=== PATIENT | female | born 1935 | race Caucasian/White ===

== ENCOUNTER 2017-12-09 13:07 | Emergency (ER) | payer MEDICARE, OTHER, SELFPAY ==
[2017-12-09 13:15] VITALS: BP 156/77; PULSE 79; RESP 20; TEMP 36.6; O2SAT 98; BMI 29.2
--- NOTE | 2017-12-09 13:29 | ED.HA ---
HPI - Headache <Amira Durbin PA-C - Last Filed: 12/09/17 21:15> General Chief Complaint: Headache Stated Complaint: PAIN IN HEAD Time Seen by Provider: 12/09/17 13:29 Source: patient and old records reviewed ([facility] 11/02 dx CVA with resolving sx, neg MRI, paroxysmal AF, Aortic intramural hematoma (poss)) Mode of arrival: ambulatory Limitations: no limitations History of Present Illness HPI Narrative: This 82-year-old complains of onset of brief right-sided headaches on Tuesday. She states this is only on the right side, points to her posterior parietal area, last a 2nd and then resolved. She states that these have gradually worsened to the point it was difficult for her to sleep last night, although not as severe as that today. She states that her skin feels ???like leather???, somewhat tight on the right side of her face. She states that she does not have any pain in her neck, face, or elsewhere. She has not noted any new facial weakness, pain or difficulty with talking, chewing, or swallowing. She denies any nausea, vomiting, or vision change. She denies any new weakness or paresthesia in the extremities. She has a chronic right facial droop that she states started around . Also that this might be partly due to her facial reconstruction surgery from skin cancer. She states that she also had weakness in her right hand and wrist, and was admitted to another local hospital for a few days. She does not know what diagnosis was found aside from atrial fibrillation. She states she has seen her PCP since then and currently is not on medication for this. She has been asymptomatic and denies any chest pain, palpitations, or dyspnea. She states that she is going about her usual activities despite this paroxysmal headache, no difficulty with eating, walking, etc aside from the difficulty sleeping last night. Related Data Home Medications Medication Instructions Recorded Confirmed Lactobacillus acidophilus 1 tab PO QDAY #0 tab 02/15/16 12/09/17 cholecalciferol (vitamin D3) 2,000 unit PO DAILY #0 cap 02/15/16 12/09/17 [Vitamin D3] cyanocobalamin (vitamin B-12) 1,000 mcg PO QDAY #0 02/16/16 12/09/17 nitroglycerin 0.4 mg sublingual 0.4 mg SL Q5M PRN 11/22/17 12/09/17 tablet amlodipine 10 mg PO DAILY 12/09/17 12/09/17 furosemide 40 mg PO DAILY 12/09/17 12/09/17 levothyroxine 100 mcg PO DAILY 12/09/17 12/09/17 losartan 100 mg PO DAILY 12/09/17 12/09/17 metoprolol succinate 50 mg PO DAILY 12/09/17 12/09/17 vpvuhnls-[id number]-GJ-calcium-mins 1 tab PO DAILY 12/09/17 12/09/17 [Women's One Daily] peg 400-propylene glycol [Systane 1 drp OPHTHALMIC (EYE) PRN PRN 12/09/17 12/09/17 (propylene glycol)] potassium chloride 10 meq PO DAILY 12/09/17 12/09/17 pramipexole 0.5 mg PO BID 12/09/17 12/09/17 Previous Rx's Medication Instructions Recorded meloxicam [Mobic] 7.5 mg PO Q DAY PRN #30 tab 10/29/17 Allergies Allergy/AdvReac Type Severity Reaction Status Date / Time amitriptyline [AMITRIPTYLINE] Allergy Unknown Verified 12/09/17 13:31 gabapentin [GABAPENTIN] Allergy Unknown Verified 12/09/17 13:31 ANESTHESIA DRUG AdvReac Mild UNSURE FOR Uncoded 11/22/17 08:37 THE NAME 05/31/14 Exam <Amira Durbin PA-C - Last Filed: 12/09/17 21:15> Narrative Exam Narrative: GENERAL APPEARANCE: Patient sitting comfortably, in no distress. HEENT: No scalp TTP or exanthem, PERRL, EOMI, normal TMs and oropharynx, no sinus TTP NECK: Supple LUNGS: Clear to auscultation bilaterally. HEART: Rate and rhythm regular without murmur, normal S1 and S2, no S3 or S4. NEUROLOGIC: Alert and oriented, normal speech and coordination. She has a moderate R. facial droop. DTRs 2+ throughout UEs. Mild R. UE tremor noted MUSCULOSKELETAL: Full Csp AROM without tenderness. Full AROM UEs, strength 5/5 throughout bilaterally. DERMATOLOGIC: No exanthem EXTREMITIES: No cyanosis, moderate pitting which is symmetric bilateral lower extremities Initial Vital Signs Initial Vital Signs: Vital Signs Temperature 97.8 F 05/25/18 13:15 Pulse Rate 79 12/09/17 13:15 Respiratory Rate 20 12/09/17 13:15 Blood Pressure 156/77 H 12/09/17 13:15 Pulse Oximetry 98 12/09/17 13:15 <Courtney Kellogg MD - Last Filed: 12/10/17 15:31> Initial Vital Signs Initial Vital Signs: Vital Signs Temperature 97.8 F 12/09/17 13:15 Pulse Rate 79 12/09/17 13:15 Respiratory Rate 20 12/09/17 13:15 Blood Pressure 156/77 H 12/09/17 13:15 Pulse Oximetry 98 12/09/17 13:15 Course <Amira Durbin PA-C - Last Filed: 12/09/17 21:15> Hospital Course: Reviewed findings with Dr. Villafana. Patient feels and appears at her baseline, going about normal activities. Considered trial of Indomethacin but given patient's recent history including possible intramural thrombus, elected against this. She is agreeable with monitoring and return if new or worsening symptoms. Otherwise we have arranged f/u with PCP next week and I have forwarded outside hospital records for review as she will need follow up on recent cardiac issues as well. Orders Ordered: ED Orders 12/09/17 13:45 CT head/brain wo con Stat 12/09/17 13:59 Basic Metabolic Panel Stat C-Reactive Protein Quant Stat Complete Blood Count AUTO DIFF Stat Erythrocyte Sedimentation Rate Stat Vital Signs - 8 hr 12/09/17 13:15 12/09/17 15:20 Temperature 97.8 F Pulse Rate 79 78 Respiratory Rate 20 18 Blood Pressure 156/77 H Blood Pressure [Left Arm] 157/82 H Pulse Oximetry 98 96 <Courtney Kellogg MD - Last Filed: 12/10/17 15:31> Orders Ordered: ED Orders 12/09/17 13:45 CT head/brain wo con Stat 12/09/17 13:59 Basic Metabolic Panel Stat C-Reactive Protein Quant Stat Complete Blood Count AUTO DIFF Stat Erythrocyte Sedimentation Rate Stat Vital Signs - 8 hr 12/09/17 13:15 12/09/17 15:20 Temperature 97.8 F Pulse Rate 79 78 Respiratory Rate 20 18 Blood Pressure 156/77 H Blood Pressure [Left Arm] 157/82 H Pulse Oximetry 98 96 MDM - Headache <Amira Durbin PA-C - Last Filed: 12/09/17 21:15> Lab Data Result diagrams: 12/09/17 13:59 12/09/17 13:59 Lab Results 12/09/17 12/09/17 Range/Units 13:59 13:59 WBC 8.3 (4.5-11.0) X10^3/uL RBC 4.15 (4.0-5.2) X10^6/uL Hgb 11.8 L (12.0-16.0) g/dL Hct 34.5 L (36-46) % MCV 83.1 (80-100) fL MCH 28.5 (26-34) PG MCHC 34.3 (30-36) % RDW 15.0 H (11.6-14.8) % Plt Count 203 (150-400) X10^3/uL Neut % (Auto) 61.4 (50-75) % Lymph % (Auto) 28.8 (25-40) % [place] % (Auto) 6.7 (3-14) % Eos % (Auto) 2.5 (2-4) % Baso % (Auto) 0.6 (0-2) % Neut # (Auto) 5100 (2667-7726) /uL ESR 34 H (0-20) MM/HR Sodium 144 (137-145) mmol/L Potassium 4.0 (3.4-5.1) mmol/L Chloride 106.0 (98-107) mmol/L Carbon Dioxide 29.0 (22-32) mmol/L BUN 29.0 H (7-17) mg/dL Creatinine 1.00 (0.52-1.04) mg/dL Estimated GFR 53.1 L (>60) mL/min BUN/Creatinine Ratio 29.0 H (6-22) Glucose 100 (80-110) mg/dL Calcium 9.0 (8.4-10.2) mg/dL C-Reactive Protein 1.0 (<1.0) mg/dL Imaging Data CT scan - head: Radiologist's impression: View Report History [address] [address] [address] Scan Report Signed Patient: Lolis Strickland MR#: [id number] : 1935 Acct:[id number] Age/Sex: 82 / F Date of Service: 12/09/17 Loc: ED Accession Number: [id number] Procedure: CT head/brain wo con Ordering Provider: Amira Durbin P.A-C PROCEDURE: CT HEAD/BRAIN WO CON INDICATIONS: Atypical right sided headache. TECHNIQUE: Noncontrast 4.5 mm thick angled axial sections acquired from the foramen magnum to the vertex, with coronal and sagittal reformats. For radiation dose reduction, the following was used: automated exposure control, adjustment of mA and/or kV according to patient size. COMPARISON: None. FINDINGS: Image quality: Excellent. CSF spaces: Basal cisterns are patent. No extra-axial fluid collections. Ventricles are normal in size and shape. Brain: No midline shift. No intracranial masses or hemorrhage. Pandey-white matter interface is normal. Benign basal ganglia calcifications. Skull and face: Calvarium and visualized facial bones are intact, without suspicious lesions. Sinuses: Visualized sinuses and mastoids are clear. IMPRESSION: No CT evidence of acute intracranial pathology. Dictated by: Tim Low M.D. on 12/09/2017 at 13:12 Approved by: Tim Low M.D. on 12/09/2017 at 13:14 <Courtney Kellogg MD - Last Filed: 12/10/17 15:31> Lab Data Lab Results 12/09/17 12/09/17 Range/Units 13:59 13:59 WBC 8.3 (4.5-11.0) X10^3/uL RBC 4.15 (4.0-5.2) X10^6/uL Hgb 11.8 L (12.0-16.0) g/dL Hct 34.5 L (36-46) % MCV 83.1 (80-100) fL MCH 28.5 (26-34) PG MCHC 34.3 (30-36) % RDW 15.0 H (11.6-14.8) % Plt Count 203 (150-400) X10^3/uL Neut % (Auto) 61.4 (50-75) % Lymph % (Auto) 28.8 (25-40) % [place] % (Auto) 6.7 (3-14) % Eos % (Auto) 2.5 (2-4) % Baso % (Auto) 0.6 (0-2) % Neut # (Auto) 5100 (3709-6844) /uL ESR 34 H (0-20) MM/HR Sodium 144 (137-145) mmol/L Potassium 4.0 (3.4-5.1) mmol/L Chloride 106.0 (98-107) mmol/L Carbon Dioxide 29.0 (22-32) mmol/L BUN 29.0 H (7-17) mg/dL Creatinine 1.00 (0.52-1.04) mg/dL Estimated GFR 53.1 L (>60) mL/min BUN/Creatinine Ratio 29.0 H (6-22) Glucose 100 (80-110) mg/dL Calcium 9.0 (8.4-10.2) mg/dL C-Reactive Protein 1.0 (<1.0) mg/dL Discharge Plan Departure Patient Disposition: Home, Self-Care Clinical Impression: Idiopathic stabbing headache Discharge Date/Time: 12/09/17 15:52 Interventions: ED Discharge Assessment Last Done: 12/09/17 15:52 Instructions: DI for Headache Activity Restrictions/Additional Instructions: You should return as we talked about if you have new or acutely worsening symptoms. It is okay to try an ice pack or heating pad to see if this helps your headaches. It is okay to try tylenol again if you wish (it is also reasonable to just continue to monitor since the headache pains are so brief). The source of your pain today seems to be nerve generated and it may be that you don't feel the pain in your face due to previous surgeries, or it may just be very localized. You should follow up with Dr. Salinas on this next week (we have scheduled an appointment for you at 2:15 check in 1 week from today). I have sent her your records from [facility] that I reviewed today. It did not appear that you were in atrial fibrillation when I examined you, but you should discuss with her whether further cardiology testing or treatment are needed at your next visit since it is more than a month after your last hospital stay. Prescriptions: No Action Lactobacillus acidophilus 1 EACH capsule 1 tab PO QDAY Qty: 0 RF: 0 cholecalciferol (vitamin D3) [Vitamin D3] 2,000 UNIT capsule 2,000 unit PO DAILY Qty: 0 RF: 0 cyanocobalamin (vitamin B-12) 1,000 MCG tablet extended release 1,000 mcg PO QDAY Qty: 0 RF: 0 meloxicam [Mobic] 7.5 MG tablet 7.5 mg PO Q DAY PRNQty: 30 RF: 0 nitroglycerin 0.4 mg tablet, sublingual 0.4 mg SL Q5M PRN (Reason: Chest Pain) RF: 0 amlodipine 10 mg tablet 10 mg PO DAILY RF: 0 furosemide 20 mg tablet 40 mg PO DAILY RF: 0 potassium chloride 10 mEq capsule, extended release 10 meq PO DAILY RF: 0 pramipexole 0.5 mg tablet 0.5 mg PO BID RF: 0 levothyroxine 100 mcg tablet 100 mcg PO DAILY RF: 0 peg 400-propylene glycol [Systane (propylene glycol)] 0.4-0.3 % drops 1 drp ophthalmic (eye) PRN PRN (Reason: Dry Eyes) RF: 0 brwhfllf-hhrv-VI-calcium-mins [Women's One Daily] 18 mg iron-400 mcg-500 mg Ca Tablet 1 tab PO DAILY RF: 0 metoprolol succinate 50 mg tablet extended release 24 hr 50 mg PO DAILY RF: 0 losartan 100 mg tablet 100 mg PO DAILY RF: 0 Referrals: Nicole Salinas DO [Primary Care Provider] - <Courtney Kellogg MD - Last Filed: 12/10/17 15:31> Cosign ED Attending Cosignature Attestation: I was the attending of record and available in the ED. I attest to the documentation and agree with the assessment and plan.
--- NOTE | 2017-12-09 13:45 | DI.CT.S_ITS ---
PROCEDURE: CT HEAD/BRAIN WO CON INDICATIONS: Atypical right sided headache. TECHNIQUE: Noncontrast 4.5 mm thick angled axial sections acquired from the foramen magnum to the vertex, with coronal and sagittal reformats. For radiation dose reduction, the following was used: automated exposure control, adjustment of mA and/or kV according to patient size. COMPARISON: None. FINDINGS: Image quality: Excellent. CSF spaces: Basal cisterns are patent. No extra-axial fluid collections. Ventricles are normal in size and shape. Brain: No midline shift. No intracranial masses or hemorrhage. Pandey-white matter interface is normal. Benign basal ganglia calcifications. Skull and face: Calvarium and visualized facial bones are intact, without suspicious lesions. Sinuses: Visualized sinuses and mastoids are clear. IMPRESSION: No CT evidence of acute intracranial pathology. Dictated by: Tim Low M.D. on 12/09/2017 at 13:12 Approved by: Tim Low M.D. on 12/09/2017 at 13:14
[2017-12-09 14:14] LABS: Add Manual Diff / Slide Review NO; Basophils Percent Auto 0.6 % (0-2); Eosinophils Percent Auto 2.5 % (2-4); Hematocrit 34.5 % (36-46); Hemoglobin 11.8 g/dL (12.0-16.0); Lymphocytes Percent Auto 28.8 % (25-40); Mean Corpuscular HGB Conc 34.3 % (30-36); Mean Corpuscular Hemoglobin 28.5 PG (26-34); Mean Corpuscular Volume 83.1 fL (80-100); Monocytes Percent Auto 6.7 % (3-14); Neutrophils Absolute Auto 5100 /uL (3000-5900); Neutrophils Percent Auto 61.4 % (50-75); Platelet Count 203 X10^3/uL (150-400); Red Blood Cell Count 4.15 X10^6/uL (4.0-5.2); White Blood Cell Count 8.3 X10^3/uL (4.5-11.0)
[2017-12-09 14:28] LABS: Estimated Glomerular Filt Rate 53.1 mL/min (>60); Glucose 100 mg/dL (80-110); HEMOLYSIS 28 (0-50); Sodium 144 mmol/L (137-145)
[2017-12-09 15:03] LABS: Erythrocyte Sedimentation Rate 34 MM/HR (0-20)
[2017-12-09 15:20] VITALS: BP 157/82; PULSE 78; RESP 18; O2SAT 96
== END 2017-12-09 15:52 | disposition home or self-care (01) ==
PROVIDERS: Emergency Provider Internal Medicine; PCP Family Medicine
DX: R51 Headache (principal)
CPT/HCPCS: 36415; 70450; 80048; 85025; 85651; 86140; 99282; 99284

== ENCOUNTER → 2018-02-27 08:33 | Outpatient (CLI) | payer MEDICARE, OTHER, SELFPAY ==
[2018-02-27 10:06] LABS: Add Manual Diff / Slide Review NO; Basophils Percent Auto 0.6 % (0-2); Eosinophils Percent Auto 3.1 % (2-4); Hematocrit 35.2 % (36-46); Hemoglobin 11.9 g/dL (12.0-16.0); Lymphocytes Percent Auto 25.2 % (25-40); Mean Corpuscular HGB Conc 33.7 % (30-36); Mean Corpuscular Hemoglobin 28.5 PG (26-34); Mean Corpuscular Volume 84.7 fL (80-100); Monocytes Percent Auto 5.9 % (3-14); Neutrophils Absolute Auto 5200 /uL (3000-5900); Neutrophils Percent Auto 65.2 % (50-75); Platelet Count 226 X10^3/uL (150-400); Red Blood Cell Count 4.16 X10^6/uL (4.0-5.2); Red Cell Distribution Width 15.5 % (11.6-14.8)
[2018-02-27 11:26] LABS: Cholesterol 248 mg/dL (140-199); HDL Cholesterol 35 mg/dL (40-60)
[2018-02-27 11:34] LABS: Triglycerides 820 mg/dL (35-150)
[2018-03-01 11:40] LABS: Estimated Glomerular Filt Rate 47.6 mL/min (>60)
== END ==
PROVIDERS: PCP Family Medicine; Visit Provider Internal Medicine Cardiovascular Disease
DX: I10 Essential (primary) hypertension (principal); E78.5 Hyperlipidemia, unspecified
CPT/HCPCS: 36415; 80061; 82565; 85025

== ENCOUNTER → 2018-03-01 10:52 | Outpatient (CLI) | payer MEDICARE, OTHER, SELFPAY ==
--- NOTE | 2018-03-01 | DI.CT.S_ITS ---
PROCEDURE: CT ANGIO CHEST INDICATIONS: AORTIC MURAL TOMBUS TECHNIQUE: After the administration of intravenous contrast, 2 mm thick sections acquired from the pulmonary apices to the posterior costophrenic angles. 3-dimensional maximum intensity projection (MIP) coronal and sagittal reformats were then acquired through the thorax. For radiation dose reduction, the following was used: automated exposure control, adjustment of mA and/or kV according to patient size. COMPARISON: None. FINDINGS: Image quality: Excellent. Pulmonary arteries: Pulmonary arteries are normal in size, and demonstrate no intraluminal filling defects to suggest central pulmonary embolism. No mural thrombus is visualized within the pulmonary arteries. Lungs and pleura: Lungs are clear. No pleural effusions or pneumothorax. Central and peripheral airways are patent. Mediastinum: Heart size is normal, without pericardial effusion. No mediastinal or hilar adenopathy. Esophagus is normal in caliber, without hiatal hernia. The thoracic aorta demonstrates normal caliber. Mild atheromatous calcification is present at the aortic arch and descending thoracic aorta. No mural thrombus. No wall thickening. No periaortic fat stranding. No aortic dissection. Bones and chest wall: A 14 mm diameter intermediate density nodules present within the lower outer quadrant of the right breast (series 4, image 56). No suspicious bony lesions. Ribs and thoracic spine appear intact throughout. Thyroid gland is not visualized. No axillary or supraclavicular adenopathy. Abdomen: A the liver appears hypodense suggesting fatty infiltration. There is thinning of the bilateral renal cortices. Visualized upper abdominal solid organs appear otherwise normal in the early arterial phase of enhancement. IMPRESSION: 1. Normal caliber aorta without mural thrombus or dissection. 2. No pulmonary embolus. 3. Hepatic steatosis. 4. Intermediate density nodule within the lower outer quadrant of the right breast. Mammogram and possible ultrasound is recommended to further characterize this finding. Dictated by: Micki Wayne M.D. on 03/01/2018 at 15:13 Approved by: Micki Wayne M.D. on 03/01/2018 at 15:27
== END ==
PROVIDERS: PCP Family Medicine; Visit Provider Internal Medicine Cardiovascular Disease
DX: I23.6 Thrombosis of atrium, auricular appendage, and ventricle as current complications following acute myocardial infarction (principal)
CPT/HCPCS: 71275; Q9967

== ENCOUNTER → 2018-03-10 10:11 | Outpatient (CLI) | payer MEDICARE, OTHER, SELFPAY ==
--- NOTE | 2018-03-10 10:12 | DI.MG.S_ITS ---
BILATERAL DIGITAL DIAGNOSTIC MAMMOGRAM 3D/2D: 03/10/2018 CLINICAL: Baseline exam. Right breast Lump. No prior exams were available for comparison. The tissue of both breast demonstrates scattered fibroglandular tissue. There is a 2 cm oval mass with a circumscribed margin in the right breast upper outer aspect middle depth, near or along the 9 o'clock radian. There are vascular calcifications in the right breast. No other significant masses, calcifications, or other findings are seen in either breast. IMPRESSION: INCOMPLETE: NEEDS ADDITIONAL IMAGING EVALUATION 1) The 2 cm oval mass in the right breast is indeterminate. An ultrasound is recommended. 2) No mammographic evidence of malignancy in the left breast. This exam was interpreted at Station ID: [id number]. NOTE: For mammograms, a report in lay terms will be sent to the patient. Approximately 15% of breast malignancies will not be visualized mammographically. In the management of a palpable breast mass, a negative mammogram must not discourage biopsy of a clinically suspicious lesion. Electronically Signed By: Tommy Alejandro M.D. ecl/:03/10/2018 11:27:00 letter sent: Additional Imaging Needed ACR BI-RADS Category 0: Incomplete [id number]
--- NOTE | 2018-03-10 10:12 | DI.US.S_ITS ---
ULTRASOUND OF RIGHT BREAST: 03/10/2018 CLINICAL: Palpable right breast lump. [facility]-time and Doppler ultrasound of the right breast were performed. Pandey scale images of the real-time examination were reviewed. There is a benign 1.9 cm x 1.7 cm x 1.1 cm oval cyst in the right breast at 10 o'clock 6 cm from the nipple. This oval cyst is anechoic and demonstrates a single septation. Color flow imaging demonstrates that there is no vascularity present. This correlates with mammography and the patient's palpable abnormality. IMPRESSION: BENIGN There is no sonographic evidence of malignancy in the imaged right breast. 1.9 cm oval simple cyst in the right breast at 10 o'clock 6 cm from the nipple is benign. Recommend clinical follow-up for management of patient's symptoms. Return to annual mammogram screening schedule is recommended. This exam was interpreted at Station ID: [id number]. Electronically Signed By: Tommy Alejandro M.D. ecl/:03/10/2018 12:17:00 letter sent: Clinical Evaluation Ultrasound BI-RADS: 2 Benign
== END ==
PROVIDERS: PCP Family Medicine; Visit Provider Family Medicine
DX: R92.8 Other abnormal and inconclusive findings on diagnostic imaging of breast (principal); N60.01 Solitary cyst of right breast
CPT/HCPCS: 76642; 77066; G0279

== ENCOUNTER → 2018-04-05 09:34 | Outpatient (CLI) | payer MEDICARE, OTHER, SELFPAY ==
[2018-04-05 09:55] LABS: Add Manual Diff / Slide Review NO; Basophils Percent Auto 0.9 % (0-2); Hemoglobin 12.3 g/dL (12.0-16.0); Lymphocytes Percent Auto 31.8 % (25-40); Mean Corpuscular HGB Conc 33.3 % (30-36); Mean Corpuscular Hemoglobin 28.2 PG (26-34); Mean Corpuscular Volume 84.8 fL (80-100); Neutrophils Absolute Auto 4200 /uL (3000-5900); Neutrophils Percent Auto 56.3 % (50-75); Platelet Count 222 X10^3/uL (150-400); Red Blood Cell Count 4.36 X10^6/uL (4.0-5.2); Red Cell Distribution Width 15.6 % (11.6-14.8); White Blood Cell Count 7.4 X10^3/uL (4.5-11.0)
[2018-04-05 10:11] LABS: Blood Urea Nitrogen 26 mg/dL (7-17); Calcium 9.4 mg/dL (8.4-10.2); Carbon Dioxide 30 mmol/L (22-32); Chloride 107 mmol/L (98-107); Estimated Glomerular Filt Rate 53.1 mL/min (>60); Glucose 105 mg/dL (80-110); HEMOLYSIS < 15 (0-50); Potassium 4.4 mmol/L (3.4-5.1); Sodium 147 mmol/L (137-145)
== END ==
PROVIDERS: PCP Family Medicine; Visit Provider Family Medicine
DX: G25.81 Restless legs syndrome (principal); R60.0 Localized edema
CPT/HCPCS: 36415; 80048; 82728; 85025

== ENCOUNTER → 2018-04-13 13:43 | Outpatient (CLI) | payer MEDICARE, OTHER, SELFPAY ==
--- NOTE | 2018-04-26 09:39 | P.HOLT.S_ITS ---
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 Report Referral & Results Date Patient Seen: 04/13/18 Requesting provider: Nicole Salinas Indication: Arrhythmia Duration of monitoring (days): 7 Diary information: To diary entries from the patient associated with sinus rhythm 3 patient triggered events associated with sinus rhythm and PACs Data: Minimum heart rate 55 beats per minute at 15:49 on 04/16/2018 Maximum sinus heart rate 138 at 12:23 on 04/15/2018 Maximum overall heart rate 182 beats per minute at 22:30 on 04/19/2018 this was associated with a 5 beat run of supraventricular tachycardia 1.2% of identified beats were PACs Less than 1% of identified beats were PVCs There were 11 runs of an SVT the longest being 8.7 sec at 138 beats per minute so an atypical SVT Impression: Patient with supraventricular dysrhythmia as above potentially source of patient's symptoms Clinical correlation suggested
== END ==
PROVIDERS: PCP Family Medicine; Visit Provider Family Medicine
DX: I49.9 Cardiac arrhythmia, unspecified (principal)
CPT/HCPCS: 0296T

== ENCOUNTER 2018-10-09 10:13 | Inpatient (IN) | payer MEDICARE, OTHER, SELFPAY ==
[2018-10-09] VITALS (7 sets, daily range): BP systolic 117–147; BP diastolic 51–70; PULSE 61–77; RESP 16–18; TEMP 36.6–36.7; O2SAT 93–100; BMI 32.3
--- NOTE | 2018-10-09 11:13 | DI.RAD.S_ITS ---
PROCEDURE: XR CHEST 1V INDICATIONS: chest pain TECHNIQUE: One view of the chest was acquired. COMPARISON: [facility], , CHEST 1 VIEW, 02/15/2016, 21:13. FINDINGS: Surgical changes and devices: None. Lungs and pleura: There is mild pulmonary vascular congestion. No focal infiltrate. No pleural effusions or pneumothorax. Mediastinum: Mediastinal contours appear normal. Heart size is enlarged. Bones and chest wall: No suspicious bony lesions. Overlying soft tissues appear unremarkable. IMPRESSION: Cardiomegaly and mild congestion. No focal infiltrate. Dictated by: Chet Rao M.D. on 10/09/2018 at 12:13 Approved by: Chet Rao M.D. on 10/09/2018 at 12:14
--- NOTE | 2018-10-09 11:47 | ED.EXTPRO ---
HPI - Extremity Problem General Chief complaint: Extremity Problem,Nontraumatic Stated complaint: lower extemity swelling Time Seen by Provider: 10/09/18 11:13 Source: patient Mode of arrival: ambulatory Limitations: no limitations History of Present Illness HPI Narrative: Patient is an 82-year-old female presenting from her PCP office with increasing lower extremity edema. She states that she has had multiple people over over the past few days and has not been taking care of herself. She actually has a blister on her left leg and her legs are quite erythematous. She has had cough no real shortness of breath or heart palpitations. She may have had a fever a few days ago she is not febrile now, denies any body aches or sweats. She does have a history of paroxysmal atrial fibrillation. She is in AFib now but not RVR. MD Complaint: extremity swelling Relieving factors: nothing Exacerbating factors: nothing Related Data Home Medications Medication Instructions Recorded Confirmed nitroglycerin 0.4 mg sublingual 0.4 mg SL Q5M PRN 11/22/17 10/09/18 tablet furosemide 40 mg PO QAM 12/09/17 10/09/18 suykcnht-tubb-EG-calcium-mins 1 tab PO DAILY 12/09/17 10/09/18 [Women's One Daily] peg 400-propylene glycol [Systane 1 drp OPHTHALMIC (EYE) PRN PRN 12/09/17 10/09/18 (propylene glycol)] potassium chloride 10 meq PO DAILY 12/09/17 10/09/18 acetaminophen 500 mg tablet 500 mg PO Q6H PRN 12/16/17 10/09/18 Neuoropathy Pain Med 1 dose PO PRN PRN 10/09/18 10/09/18 PreserVision AREDS 1 cap PO BID 10/09/18 10/09/18 furosemide 60 mg PO QPM 10/09/18 10/09/18 levothyroxine 100 mcg PO DAILY 10/09/18 10/09/18 losartan 100 mg PO QPM 10/09/18 10/09/18 Previous Rx's Medication Instructions Recorded meloxicam 7.5 mg tablet 7.5 mg PO DAILY #90 tab 02/15/18 lactobacillus combination no.8 3 3,000 mmu cells PO DAILY #90 cap 03/13/18 billion cell capsule lansoprazole 30 mg capsule,delayed 30 mg PO DAILY #90 cap 03/15/18 release pramipexole 0.5 mg tablet 0.5 mg PO BID #180 tab 08/08/18 amlodipine 10 mg tablet 10 mg PO DAILY #90 tab 09/12/18 metoprolol succinate ER 50 mg 50 mg PO DAILY #90 tab 09/12/18 tablet,extended release 24 hr Disabled Parking Permit See Rx Instructions .ROUTE 09/25/18 .COMPLEX #1 each Allergies Allergy/AdvReac Type Severity Reaction Status Date / Time amitriptyline [AMITRIPTYLINE] Allergy Unknown Verified 10/09/18 10:34 gabapentin [GABAPENTIN] Allergy Unknown Verified 10/09/18 10:34 ANESTHESIA DRUG AdvReac Mild UNSURE FOR Uncoded 10/09/18 09:40 THE NAME 05/31/14 Review of Systems Constitutional Denies chills, Denies fever(s), Denies lethargy and Denies weakness Eyes Denies change in vision, Denies eye discharge, Denies irritation and Denies loss of vision Cardiovascular Denies chest pain, Denies irregular heart rhythm, Denies lightheadedness, Denies palpitations, Denies dyspnea, Denies dyspnea on exertion and Denies orthopnea Respiratory Denies cough, Denies dyspnea, Denies dyspnea on exertion and Denies wheezing Gastrointestinal Gastrointestinal: Denies abdominal pain, Denies change in bowel habits, Denies diarrhea, Denies nausea and Denies vomiting Genitourinary Denies hematuria, Denies flank pain, Denies urinary incontinence and Denies urinary urgency Integumentary/Breasts Reports erythema (lower extremties) Neurologic Denies loss of vision and Denies weakness Endocrine Denies palpitations Allergic/Immunologic Denies wheezing COUNTS INCLUDE 234 BEDS AT THE [facility] Medical History Essential hypertension (Chronic 05/22/13) Hyperlipidemia (Chronic 05/22/13) 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) Bipolar I disorder (Chronic 05/22/13) Diverticulosis of colon (Chronic 05/22/13) Gastroesophageal reflux disease (Chronic 05/22/13) Postoperative hypothyroidism (Chronic 05/22/13) Restless legs syndrome (Chronic 05/22/13) Squamous cell carcinoma of skin of face (Resolved 05/22/13) Tremor (Chronic 05/22/13) Benign familial tremor (Chronic) Facial asymmetry (Chronic) Mitral regurgitation (Chronic) Paroxysmal atrial fibrillation (Chronic) Pulmonary nodule (Chronic) Vitamin D deficiency (Chronic) Schatzki's ring (Resolved) Surgical History History of esophagogastroduodenoscopy (EGD) (~05/2006) History of thyroidectomy (~03/2005) Status post cholecystectomy (~12/2004) Status post colposcopy (~12/2008) Family History Father No problems noted. Mother No problems noted. Social History marital status: household members: spouse lives independently: Yes occupational status: other (retired) Smoking Status: Never smoker alcohol intake: never substance use type: does not use Family History Father No problems noted. Mother No problems noted. Social History marital status: household members: spouse lives independently: Yes occupational status: other (retired) Smoking Status: Never smoker alcohol intake: never substance use type: does not use Exam Initial Vital Signs Initial Vital Signs: Vital Signs Temperature 98.1 F 10/09/18 10:31 Pulse Rate 77 10/09/18 10:31 Respiratory Rate 18 10/09/18 10:31 Blood Pressure 134/70 10/09/18 10:31 Pulse Oximetry 100 10/09/18 10:31 GENERAL: Alert pleasant elderly female HEENT: Head atraumatic,EOMI, pupils reactive, CARDIOVASCULAR: Regular rate and rhythm without murmurs, rubs or gallops. RESPIRATORY: Breath sounds equal bilaterally, no wheezes rales or rhonchi. ABDOMEN: Soft, nontender. Normoactive bowel sounds all 4 quadrants. No guarding or rebound. EXTREMITIES: Normal range of motion, no clubbing. Neurovascularly intact. +3 pitting edema NEUROLOGICAL: Alert and oriented x4.Normal gait and speech. SKIN:: Erythema on the lower extremities up to mid leg very sharp demarcated line. She also has a blister on on the left leg above the erythema. Legs are weeping Course Orders Ordered: ED Orders 10/09/18 11:13 XR chest 1V Stat 10/09/18 11:20 Urine Microscopic Stat 10/09/18 11:21 EKG-12 Lead Stat 10/09/18 11:30 BNP [B Type Natriuretic Peptide] Stat Complete Blood Count AUTO DIFF Stat Comprehensive Metabolic Panel Stat Influenza A and B by PCR Rapid Stat Lipase Stat Partial Thromboplastin Time Stat Procalcitonin Stat Prothrombin Time INR Stat Troponin & CK Cardiac Panel Stat 10/09/18 15:51 EC echo doppler complete Routine Education, smoking cessation ONGOING 10/09/18 18:31 Blood Culture Stat 10/10/18 06:00 Basic Metabolic Panel Routine Acetaminophen (Tylenol) 325 mg PO Q6H PRN PRN Reason: pain Amlodipine Besylate (Norvasc) 10 mg PO DAILY [facility] Enoxaparin Sodium (Lovenox) 40 mg SUBCUT DAILY [facility] Furosemide (Lasix) 40 mg PO DAILY [facility] Furosemide (Lasix) 60 mg PO QPM [facility] Last Admin: 10/09/18 16:54 Dose: 60 mg Cefazolin Sodium/Dextrose (Ancef) 1 gm in 50 mls @ 200 mls/hr IV Q8H [facility] Last Admin: 10/09/18 18:37 Dose: 200 mls/hr Lactobacillus Acidophilus (Bacid Caplet) 1 each PO DAILY [facility] Levothyroxine Sodium (Synthroid) 100 mcg PO 0600 [facility] Losartan Potassium (Cozaar) 100 mg PO QPM [facility] Last Admin: 10/09/18 16:55 Dose: 100 mg Meloxicam (Mobic) 7.5 mg PO DAILY [facility] Metoprolol Succinate (Toprol Xl) 50 mg PO DAILY [facility] Multivitamins/Calcium (Thera M Plus) 1 tab PO DAILY [facility] Pantoprazole Sodium (Protonix) 40 mg PO 0600 [facility] Potassium Chloride (Klor-Con M10) 10 meq PO DAILY [facility] Pramipexole Dihydrochloride (Mirapex) 0.5 mg PO BID [facility] Last Admin: 10/09/18 16:55 Dose: 0.5 mg Discontinued Medications Furosemide (Lasix) 40 mg IV NOW ONE Stop: 10/09/18 11:48 Last Admin: 10/09/18 12:12 Dose: 40 mg Furosemide (Lasix) 40 mg IV NOW ONE Stop: 10/09/18 15:52 Last Admin: 10/09/18 16:50 Dose: Not Given Vital Signs - 8 hr 10/09/18 12:30 10/09/18 13:30 10/09/18 16:33 Temperature 97.8 F Pulse Rate 61 62 70 Respiratory Rate 18 16 18 Blood Pressure 142/64 H Blood Pressure [Left Arm] 117/58 L 130/60 Pulse Oximetry 96 93 95 10/09/18 16:55 Temperature Pulse Rate 70 Respiratory Rate Blood Pressure 142/64 H Blood Pressure [Left Arm] Pulse Oximetry MDM - Extremity (Nontraumatic) Lab Data Attestation: I reviewed the patient's lab results. Result diagrams: 10/09/18 11:30 10/09/18 11:30 Lab Results 10/09/18 10/09/18 10/09/18 Range/Units 11:20 11:30 11:30 WBC 9.6 (4.5-11.0) X10^3/uL RBC 4.05 (4.0-5.2) X10^6/uL Hgb 11.7 L (12.0-16.0) g/dL Hct 34.3 L (36-46) % MCV 84.8 (80-100) fL MCH 28.8 (26-34) PG MCHC 34.0 (30-36) % RDW 14.4 (11.6-14.8) % Plt Count 209 (150-400) X10^3/uL Neut % (Auto) 66.9 (50-75) % Lymph % (Auto) 20.2 L (25-40) % [facility] % (Auto) 7.2 (3-14) % Eos % (Auto) 5.1 H (2-4) % Baso % (Auto) 0.6 (0-2) % Neut # (Auto) 6400 (3015-5764) /uL Lymph # (Auto) 1900 (9795-8306) /uL [facility] # (Auto) 700 (0-900) /uL Eos # (Auto) 500 H (0-450) /uL Baso # (Auto) 100 (0-100) /uL PT 10.8 (10.1-12.7) SECONDS INR 0.9 (0.9-1.3) APTT 23 L (26.4-36.2) SECONDS Sodium (137-145) mmol/L Potassium (3.4-5.1) mmol/L Chloride (98-107) mmol/L Carbon Dioxide (22-32) mmol/L BUN (7-17) mg/dL Creatinine (0.52-1.04) mg/dL Estimated GFR (>60) mL/min BUN/Creatinine Ratio (6-22) Glucose (80-110) mg/dL Calcium (8.4-10.2) mg/dL Total Bilirubin (0.2-1.3) mg/dL AST (14-36) IU/L ALT (9-52) IU/L Alkaline Phosphatase (38-126) U/L Total Creatine Kinase (30-135) U/L CK-MB (CK-2) CK-MB (CK-2) Rel Index Troponin I (0.01-0.034) ng/mL B-Natriuretic Peptide (<100) Total Protein (6.3-8.2) g/dL Albumin (3.5-5.0) g/dL Globulin (1.7-4.1) g/dL Albumin/Globulin Ratio (1.0-2.8) Lipase (23-300) U/L Procalcitonin (<0.5) ng/mL Urine RBC 1-5/hpf (0-5/HPF) Urine WBC None seen (0-5/HPF) Amorphous Sediment 2+ Urine Bacteria None seen (None) Ur Culture Indicated? Cult not indicated Influenza A & B (PCR) (Negative) 10/09/18 10/09/18 10/09/18 Range/Units 11:30 11:30 11:30 WBC (4.5-11.0) X10^3/uL RBC (4.0-5.2) X10^6/uL Hgb (12.0-16.0) g/dL Hct (36-46) % MCV (80-100) fL MCH (26-34) PG MCHC (30-36) % RDW (11.6-14.8) % Plt Count (150-400) X10^3/uL Neut % (Auto) (50-75) % Lymph % (Auto) (25-40) % [facility] % (Auto) (3-14) % Eos % (Auto) (2-4) % Baso % (Auto) (0-2) % Neut # (Auto) (9374-7962) /uL Lymph # (Auto) (3236-6841) /uL [facility] # (Auto) (0-900) /uL Eos # (Auto) (0-450) /uL Baso # (Auto) (0-100) /uL PT (10.1-12.7) SECONDS INR (0.9-1.3) APTT (26.4-36.2) SECONDS Sodium 139 (137-145) mmol/L Potassium 3.3 L (3.4-5.1) mmol/L Chloride 103 (98-107) mmol/L Carbon Dioxide 27 (22-32) mmol/L BUN 19 H (7-17) mg/dL Creatinine 0.80 (0.52-1.04) mg/dL Estimated GFR > 60.0 (>60) mL/min BUN/Creatinine Ratio 23.8 H (6-22) Glucose 107 (80-110) mg/dL Calcium 8.0 L (8.4-10.2) mg/dL Total Bilirubin 0.5 (0.2-1.3) mg/dL AST 24 (14-36) IU/L ALT 32 (9-52) IU/L Alkaline Phosphatase 70 (38-126) U/L Total Creatine Kinase 35 (30-135) U/L CK-MB (CK-2) TNP CK-MB (CK-2) Rel Index TNP Troponin I < 0.012 (0.01-0.034) ng/mL B-Natriuretic Peptide < 100 (<100) Total Protein 6.5 (6.3-8.2) g/dL Albumin 3.8 (3.5-5.0) g/dL Globulin 2.7 (1.7-4.1) g/dL Albumin/Globulin Ratio 1.4 (1.0-2.8) Lipase 89 (23-300) U/L Procalcitonin (<0.5) ng/mL Urine RBC (0-5/HPF) Urine WBC (0-5/HPF) Amorphous Sediment Urine Bacteria (None) Ur Culture Indicated? Influenza A & B (PCR) Negative (Negative) 10/09/18 Range/Units 11:30 WBC (4.5-11.0) X10^3/uL RBC (4.0-5.2) X10^6/uL Hgb (12.0-16.0) g/dL Hct (36-46) % MCV (80-100) fL MCH (26-34) PG MCHC (30-36) % RDW (11.6-14.8) % Plt Count (150-400) X10^3/uL Neut % (Auto) (50-75) % Lymph % (Auto) (25-40) % [facility] % (Auto) (3-14) % Eos % (Auto) (2-4) % Baso % (Auto) (0-2) % Neut # (Auto) (4813-5842) /uL Lymph # (Auto) (4517-6979) /uL [facility] # (Auto) (0-900) /uL Eos # (Auto) (0-450) /uL Baso # (Auto) (0-100) /uL PT (10.1-12.7) SECONDS INR (0.9-1.3) APTT (26.4-36.2) SECONDS Sodium (137-145) mmol/L Potassium (3.4-5.1) mmol/L Chloride (98-107) mmol/L Carbon Dioxide (22-32) mmol/L BUN (7-17) mg/dL Creatinine (0.52-1.04) mg/dL Estimated GFR (>60) mL/min BUN/Creatinine Ratio (6-22) Glucose (80-110) mg/dL Calcium (8.4-10.2) mg/dL Total Bilirubin (0.2-1.3) mg/dL AST (14-36) IU/L ALT (9-52) IU/L Alkaline Phosphatase (38-126) U/L Total Creatine Kinase (30-135) U/L CK-MB (CK-2) CK-MB (CK-2) Rel Index Troponin I (0.01-0.034) ng/mL B-Natriuretic Peptide (<100) Total Protein (6.3-8.2) g/dL Albumin (3.5-5.0) g/dL Globulin (1.7-4.1) g/dL Albumin/Globulin Ratio (1.0-2.8) Lipase (23-300) U/L Procalcitonin < 0.05 (<0.5) ng/mL Urine RBC (0-5/HPF) Urine WBC (0-5/HPF) Amorphous Sediment Urine Bacteria (None) Ur Culture Indicated? Influenza A & B (PCR) (Negative) Urine Dip Bedside Urine Glucose Negative Bedside Urine Bilirubin - Negative Bedside Urine Ketone - Negative Urine Specific [place] 1.025 Bedside Urine Occult Blood +/- Bedside Urine pH 6.0 Bedside Urine Protein - Negative Bedside Urine Urobilinogen - Negative Bedside Urine Nitrite - Negative Bedside Urine Leukocytes - Negative Esterase Imaging Data Chest x-ray: Radiologist's impression: PROCEDURE: XR CHEST 1V INDICATIONS: chest pain TECHNIQUE: One view of the chest was acquired. COMPARISON: [facility], CHEST 1 VIEW, 02/15/2016, 21:13. FINDINGS: Surgical changes and devices: None. Lungs and pleura: There is mild pulmonary vascular congestion. No focal infiltrate. No pleural effusions or pneumothorax. Mediastinum: Mediastinal contours appear normal. Heart size is enlarged. Bones and chest wall: No suspicious bony lesions. Overlying soft tissues appear unremarkable. IMPRESSION: Cardiomegaly and mild congestion. No focal infiltrate. Dictated by: Chet Rao M.D. on 10/09/2018 at 12:13 ECG Data Attestation EKG: I personally reviewed and interpreted this ECG as follows: Prior ECG tracings: available for review Interpretation: Normal sinus rhythm rate [address] changes no T-wave inversion MDM Narrative Medical decision making narrative: Patient has obvious lower extremity edema with mild pulmonary edema on x-ray. She has no respiratory issues. BNP is less than 100 but does have signs and symptoms consistent with congestive heart failure. She has no leukocytosis she is afebrile negative procalcitonin at this time I think lower extremity erythema is due to edema and not infection. I have discussed case with Dr. Avitia who agrees with no antibiotics at this time she will see and evaluate patient agrees with admission and diuresis. Discharge Plan Departure Patient Disposition: Admitted As Inpatient Clinical Impression: CHF (congestive heart failure) Qualifiers: Heart failure type: other Qualified Code(s): I50.9 - Heart failure, unspecified Discharge Date/Time: 10/09/18 15:43 Interventions: ED Discharge Assessment Last Done: 10/09/18 15:40 Admit Date/Time: 10/09/18 14:58 Admit Provider: Kristin Avitia
[2018-10-09 11:55] LABS: Add Manual Diff / Slide Review NO; Basophils Absolute Auto 100 /uL (0-100); Basophils Percent Auto 0.6 % (0-2); Eosinophils Absolute Auto 500 /uL (0-450); Eosinophils Percent Auto 5.1 % (2-4); Hematocrit 34.3 % (36-46); Hemoglobin 11.7 g/dL (12.0-16.0); Lymphocytes Absolute Auto 1900 /uL (1100-4500); Lymphocytes Percent Auto 20.2 % (25-40); Mean Corpuscular Hemoglobin 28.8 PG (26-34); Mean Corpuscular Volume 84.8 fL (80-100); Monocytes Absolute Auto 700 /uL (0-900); Monocytes Percent Auto 7.2 % (3-14); Neutrophils Absolute Auto 6400 /uL (1500-7000); Neutrophils Percent Auto 66.9 % (50-75); Platelet Count 209 X10^3/uL (150-400); Red Blood Cell Count 4.05 X10^6/uL (4.0-5.2); Red Cell Distribution Width 14.4 % (11.6-14.8); White Blood Cell Count 9.6 X10^3/uL (4.5-11.0)
[2018-10-09 12:00] LABS: INR 0.9 (0.9-1.3); Prothrombin Time 10.8 SECONDS (10.1-12.7)
[2018-10-09 12:02] LABS: PTT Partial Thromboplastin Tim 23 SECONDS (26.4-36.2)
[2018-10-09 12:04] LABS: Alanine Aminotransferase 32 IU/L (9-52); Albumin 3.8 g/dL (3.5-5.0); Albumin Globulin Ratio 1.4 (1.0-2.8); Alkaline Phosphatase 70 U/L (38-126); Aspartate Aminotransferase 24 IU/L (14-36); BUN Creatinine Ratio 23.8 (6-22); Bilirubin Total 0.5 mg/dL (0.2-1.3); Blood Urea Nitrogen 19 mg/dL (7-17); Carbon Dioxide 27 mmol/L (22-32); Chloride 103 mmol/L (98-107); Creatine Kinase 35 U/L (30-135); Estimated Glomerular Filt Rate > 60.0 mL/min (>60); Globulin 2.7 g/dL (1.7-4.1); Glucose 107 mg/dL (80-110); HEMOLYSIS 20 (0-50); Lipase 89 U/L (23-300); Potassium 3.3 mmol/L (3.4-5.1); Sodium 139 mmol/L (137-145); Total Protein 6.5 g/dL (6.3-8.2)
[2018-10-09 12:07] LABS: Bacteria Urine None Seen; WBC Urine None Seen (0-5/HPF)
[2018-10-09 12:10] LABS: B Type Natriuretic Peptide < 100 (<100)
[2018-10-09] MEDS: FUROSEMIDE 40 MG/4 ML VIAL IV (12:12)
[2018-10-09 12:15] LABS: Troponin I < 0.012 ng/mL (0.01-0.034)
[2018-10-09 12:20] LABS: Influenza A and B by PCR Rapid Negative (Negative)
[2018-10-09 12:40] LABS: Amorphous Sediment Urine 2+; Culture Indicated Urine Cult Not Indicated; RBC Urine 1-5/HPF (0-5/HPF)
[2018-10-09 13:05] LABS: Procalcitonin < 0.05 ng/mL (<0.5)
--- NOTE | 2018-10-09 15:51 | DI.ECHO.S_ITS ---
[place] +---------+ [facility] +---------+ : : [address] : : : : [id number] : : : : Phone: [phone] Echocardiogram Report + + :Name: LUCY MISHRA Study Date: 10/10/2018 Height: 64 in : :[facility] Exam Location: [facility] Weight: 188 lb : : Gender: Female BSA: 1.9 m2 : :: 1935 Age: 82 yrs BP: 114/58 mmHg: :Reason For Study: LEG EDEMA : : Performed By: Benny Londono : :Referring: TEJAS CAMARENA : + + Interpretation Summary The left ventricle is normal in size. Left ventricular systolic function is normal without focal wall motion abnormalities. The ejection fraction is estimated to be 60-65%. Diastolic parameters suggest a relaxation abnormality of the left ventricle, consistent with probable normal filling pressures. The right ventricle is normal in size and function. The right ventricular systolic pressure is estimated to be at least 29 mmHg based on an estimated right atrial pressure of 8 mm Hg. Both atria are normal in size. There is mild aortic regurgitation. There is no other significant valvular heart disease. The IVC is dilated (diameter is greater than 2.1 cm) yet it collapses greater than 50% with a sniff. This suggests a right atrial pressure of 8 mm Hg. Procedure: A two-dimensional transthoracic echocardiogram with color flow and Doppler was performed. The study quality was technically difficult. There is no prior echocardiogram noted for this patient. A contrast injection of Definity was performed to improve assessment of LV function. The patient was in normal sinus rhythm during the exam. Left Ventricle: The left ventricle is normal in size. There is normal left ventricular wall thickness. Left ventricular systolic function is normal without focal wall motion abnormalities. The ejection fraction is estimated to be 60-65%. Diastolic parameters suggest a relaxation abnormality of the left ventricle, consistent with probable normal filling pressures. Right Ventricle: The right ventricle is normal in size and function. Atria: Both atria are normal in size. The interatrial septum is intact with no evidence for an atrial septal defect. Mitral Valve: The mitral valve is normal in structure and function. There is trace mitral regurgitation. Aortic Valve: The aortic valve is trileaflet. The aortic valve opens well. There is mild aortic regurgitation. Tricuspid Valve: The tricuspid valve is normal in structure and function. There is mild tricuspid regurgitation. The right ventricular systolic pressure is estimated to be at least 29 mmHg based on an estimated right atrial pressure of 8 mm Hg. Pulmonic Valve: The pulmonic valve is normal in structure and function. There is trace pulmonic regurgitation. There is no other significant valvular heart disease. Great Vessels: The aortic root is normal size. The dimensions of the ascending aorta are normal. The pulmonary artery is normal size. The IVC is dilated (diameter is greater than 2.1 cm) yet it collapses greater than 50% with a sniff. This suggests a right atrial pressure of 8 mm Hg. Pericardium/ Pleura There is no pericardial effusion. There is no pleural effusion. MMode/2D Measurements & Calculations LVIDd: 4.6 cm LVOT diam: 2.0 cm LVIDs: 2.7 cm Ao root diam: 2.7 cm FS: 41.7 % Aortic Jxn: 2.3 cm EPSS: 0.66 cm asc Aorta Diam: 3.0 cm IVSd: 1.0 cm LVPWd: 1.00 cm LV haley. diameter/BSA (cm/m^2): 2.4 LV sys. diameter/BSA (cm/m^2): 1.4 LA dimension: 3.3 cm RA long axis: 4.6 cm LA A2 area: 18.0 cm2 RA area: 16.1 cm2 LA A4 area: 17.4 cm2 RA vol: 47.3 ml LA length (vol): 4.8 cm RA : 24.8 ml/m2 LA vol: 55.5 ml IVC diam: 2.6 cm LA vol index: 29.1 ml/m2 Doppler Measurements & Calculations Ao V2 max: 128.4 cm/sec LVOT Max Luciano: 84.7 cm/sec Ao V2 mean: 89.5 cm/sec LV V1 max P.9 mmHg Ao max P.6 mmHg LV V1 VTI: 22.0 cm Ao mean P.5 mmHg JAM(I,D): 2.6 cm2 Ao V2 VTI: 26.3 cm JAM(V,D): 2.1 cm2 sev ratio: 0.84 JAM indexed to BSA (cm^2/m^2): 1.4 AI P1/2t: 662.3 msec AI dec slope: 144.2 cm/sec2 MV E max luciano: 89.0 cm/sec TR max luciano: 230.4 cm/sec MV A max luciano: 98.7 cm/sec TR max P.2 mmHg MV E/A: 0.90 PA V2 max: 89.5 cm/sec Med Peak E' Luciano: 4.6 cm/sec PA V2 mean: 65.3 cm/sec E/E' med: 19.2 PA mean P.9 mmHg Lat Peak E' Luciano: 3.8 cm/sec PA pr(Accel): 14.1 mmHg E/E' lat: 23.3 PA Accel Time: 0.14 sec E/e' average: 21.2 MV dec time: 0.23 sec SV(LVOT): 69.5 ml Reading Physician:12:56 PM
[2018-10-09] MEDS: FUROSEMIDE 20 MG TABLET 60 MG PO (16:54)
[2018-10-09] MEDS: PRAMIPEXOLE 0.25 MG TABLET 0.5 MG PO (16:55)
[2018-10-09] MEDS: LOSARTAN 50 MG TABLET 100 MG PO (16:55)
--- NOTE | 2018-10-09 17:52 | P.HP_ITS ---
History of Present Illness Date Patient Seen: 10/09/18 Time Patient Seen: 16:45 Chief complaint: lower extemity swelling Narrative: Pt is a 82yo woman with hypertension, hyperlipidemia, bipolar disorder, GERD, CVA, paroxysmal atrial fibrillation, and hypothyroidism who presented with acutely worsening LE edema. She states that for the past 4-5 days her lower extremity edema has been acutely worsening. Four days ago, she noticec that her legs looked very red and felt ?on fire.? Additionally, 4 days ago, the patient felt feverish. Her niece checked her temperature, and it was > 100F, but she cannot recall the exact number. Since then, she has intermittently had chills. The pt has been taking her home medications as appropriate, but states that she has been very busy and not elevating her legs or wearing compression socks like she normally does. She has also not been careful about her diet, including salt intake. She has also been on her feet a lot more then usual. Over the past 3 days, it has become very painful for her to stand on her feet. She did also develop a large blister on her left leg in the past 2 days. The pt does endorse that she has been feeling increasingly SOB. She has been sleeping at an incline due to feeling like she is suffocating when sleeping flat. The pt denies any recent chest pain or cough. Patient History Family & Social History Social History: household members spouse Prior Living Arrangements House lives independently Yes Safety & Behavioral: Feels Safe in Current Yes Environment Been Physically Hurt or No Threatened By a Person Suicidal Ideation Description None Suicide Plan Description No Plan Tobacco & Substance use: Smoking Status Never smoker alcohol intake never alcohol intake frequency a few times a month Substance Use Type does not use Meds Home Medications Medication Instructions Recorded Confirmed Type nitroglycerin 0.4 mg sublingual 0.4 mg SL Q5M PRN 11/22/17 10/09/18 History tablet furosemide 40 mg PO QAM 12/09/17 10/09/18 History wcjnuhar-yudh-QX-calcium-mins 1 tab PO DAILY 12/09/17 10/09/18 History [Women's One Daily] peg 400-propylene glycol [Systane 1 drp OPHTHALMIC (EYE) PRN PRN 12/09/17 10/09/18 History (propylene glycol)] potassium chloride 10 meq PO DAILY 12/09/17 10/09/18 History acetaminophen 500 mg tablet 500 mg PO Q6H PRN 12/16/17 10/09/18 History meloxicam 7.5 mg tablet 7.5 mg PO DAILY #90 tab 02/15/18 10/09/18 Rx lactobacillus combination no.8 3 3,000 mmu cells PO DAILY #90 cap 03/13/18 10/09/18 Rx billion cell capsule lansoprazole 30 mg capsule,delayed 30 mg PO DAILY #90 cap 03/15/18 10/09/18 Rx release pramipexole 0.5 mg tablet 0.5 mg PO BID #180 tab 08/08/18 10/09/18 Rx amlodipine 10 mg tablet 10 mg PO DAILY #90 tab 09/12/18 10/09/18 Rx metoprolol succinate ER 50 mg 50 mg PO DAILY #90 tab 09/12/18 10/09/18 Rx tablet,extended release 24 hr Disabled Parking Permit See Rx Instructions .ROUTE 09/25/18 10/09/18 Rx .COMPLEX #1 each Neuoropathy Pain Med 1 dose PO PRN PRN 10/09/18 10/09/18 History PreserVision AREDS 1 cap PO BID 10/09/18 10/09/18 History furosemide 60 mg PO QPM 10/09/18 10/09/18 History levothyroxine 100 mcg PO DAILY 10/09/18 10/09/18 History losartan 100 mg PO QPM 10/09/18 10/09/18 History Allergies Allergy/AdvReac Type Severity Reaction Status Date / Time amitriptyline [AMITRIPTYLINE] Allergy Unknown Verified 10/09/18 10:34 gabapentin [GABAPENTIN] Allergy Unknown Verified 10/09/18 10:34 ANESTHESIA DRUG AdvReac Mild UNSURE FOR Uncoded 10/09/18 09:40 THE NAME 05/31/14 Review of Systems Constitutional Constitutional: Reports chills, Denies fatigue, Reports fever(s), Denies snoring and Denies weakness Cardiovascular Cardiovascular: Denies chest pain, Denies excessive sweating, Denies fast heart rate, Reports foot swelling, Denies irregular heart rhythm, Reports leg swelling, Denies lightheadedness, Reports shortness of breath and Reports shor tness of breath when lying down Respiratory Respiratory: Denies chest congestion, Denies cough, Reports dyspnea, Denies snoring, Denies stridor and Denies wheezing Gastrointestinal Gastrointestinal: Denies abdominal pain, Denies change in bowel habits, Denies nausea and Denies vomiting Genitourinary Genitourinary: Denies urinary frequency and Denies urinary urgency Neurologic Neurologic: Denies weakness Endocrine Endocrine: Denies fatigue Allergic/Immunologic Allergic/Immunologic: Denies wheezing Exam Vital Signs (past 8 hours): - 10/09/18 10:31 10/09/18 11:20 10/09/18 12:30 Temperature 98.1 F Pulse Rate 77 68 61 Respiratory Rate 18 18 18 Blood Pressure 134/70 Blood Pressure [Left Arm] 132/51 L 117/58 L Pulse Oximetry 100 98 96 10/09/18 13:30 10/09/18 16:33 10/09/18 16:55 Temperature 97.8 F Pulse Rate 62 70 70 Respiratory Rate 16 18 Blood Pressure 142/64 H 142/64 H Blood Pressure [Left Arm] 130/60 Pulse Oximetry 93 95 Oxygen Delivery Method Room Air Narrative Exam Narrative: GEN - alert, cooperative and no distress, sitting comfortably in bed, appears well, speaking easily in complete sentences HEENT - normocephalic and atraumatic, sclera white, moist mucus membranes, throat non-erythematous NECK - FROM, no adenopathy, no JVD HEART - RRR, S1, S2 normal, no S3 or S4, no murmurs LUNGS - symmetric chest rise, no accessory muscles, mild end-expiratory crackles bilateral bases, no wheezing ABD - nondistended, normal bowel sounds, soft, nontender EXT - 2+ pitting edema bilateral LE to knee level with tight skin, significant erythema and warmth bilateral legs to knee level with distinct demarcation from erythematous to not directly below the knee, tender to palpation and very warm, approximately 2cm diameter blister present superior aspect of erythema on left leg with clear fluid present NEURO - no gross deficits Objective Imaging Chest x-ray: Radiologist's impression: PROCEDURE: XR CHEST 1V INDICATIONS: chest pain TECHNIQUE: One view of the chest was acquired. COMPARISON: [facility], CHEST 1 VIEW, 02/15/2016, 21:13. FINDINGS: Surgical changes and devices: None. Lungs and pleura: There is mild pulmonary vascular congestion. No focal infiltrate. No pleural effusions or pneumothorax. Mediastinum: Mediastinal contours appear normal. Heart size is enlarged. Bones and chest wall: No suspicious bony lesions. Overlying soft tissues appear unremarkable. IMPRESSION: Cardiomegaly and mild congestion. No focal infiltrate. Labs Result Diagrams: 10/09/18 11:30 10/09/18 11:30 Labs: Laboratory Results - last 24 hr 10/09/18 10/09/18 10/09/18 11:20 11:30 11:30 WBC 9.6 RBC 4.05 Hgb 11.7 L Hct 34.3 L MCV 84.8 MCH 28.8 MCHC 34.0 RDW 14.4 Plt Count 209 Neut % (Auto) 66.9 Lymph % (Auto) 20.2 L [place] % (Auto) 7.2 Eos % (Auto) 5.1 H Baso % (Auto) 0.6 Neut # (Auto) 6400 Lymph # (Auto) 1900 [place] # (Auto) 700 Eos # (Auto) 500 H Baso # (Auto) 100 PT 10.8 INR 0.9 APTT 23 L Sodium Potassium Chloride Carbon Dioxide BUN Creatinine Estimated GFR BUN/Creatinine Ratio Glucose Calcium Total Bilirubin AST ALT Alkaline Phosphatase Total Creatine Kinase CK-MB (CK-2) CK-MB (CK-2) Rel Index Troponin I B-Natriuretic Peptide Total Protein Albumin Globulin Albumin/Globulin Ratio Lipase Procalcitonin Urine RBC 1-5/hpf Urine WBC None seen Amorphous Sediment 2+ Urine Bacteria None seen Ur Culture Indicated? Cult not indicated Influenza A & B (PCR) 10/09/18 10/09/18 10/09/18 11:30 11:30 11:30 WBC RBC Hgb Hct MCV MCH MCHC RDW Plt Count Neut % (Auto) Lymph % (Auto) [place] % (Auto) Eos % (Auto) Baso % (Auto) Neut # (Auto) Lymph # (Auto) Pre[place] # (Auto) Eos # (Auto) Baso # (Auto) PT INR APTT Sodium 139 Potassium 3.3 L Chloride 103 Carbon Dioxide 27 BUN 19 H Creatinine 0.80 Estimated GFR > 60.0 BUN/Creatinine Ratio 23.8 H Glucose 107 Calcium 8.0 L Total Bilirubin 0.5 AST 24 ALT 32 Alkaline Phosphatase 70 Total Creatine Kinase 35 CK-MB (CK-2) TNP CK-MB (CK-2) Rel Index TNP Troponin I < 0.012 B-Natriuretic Peptide < 100 Total Protein 6.5 Albumin 3.8 Globulin 2.7 Albumin/Globulin Ratio 1.4 Lipase 89 Procalcitonin Urine RBC Urine WBC Amorphous Sediment Urine Bacteria Ur Culture Indicated? Influenza A & B (PCR) Negative 10/09/18 11:30 WBC RBC Hgb Hct MCV MCH MCHC RDW Plt Count Neut % (Auto) Lymph % (Auto) [place] % (Auto) Eos % (Auto) Baso % (Auto) Neut # (Auto) Lymph # (Auto) Pre[place] # (Auto) Eos # (Auto) Baso # (Auto) PT INR APTT Sodium Potassium Chloride Carbon Dioxide BUN Creatinine Estimated GFR BUN/Creatinine Ratio Glucose Calcium Total Bilirubin AST ALT Alkaline Phosphatase Total Creatine Kinase CK-MB (CK-2) CK-MB (CK-2) Rel Index Troponin I B-Natriuretic Peptide Total Protein Albumin Globulin Albumin/Globulin Ratio Lipase Procalcitonin < 0.05 Urine RBC Urine WBC Amorphous Sediment Urine Bacteria Ur Culture Indicated? Influenza A & B (PCR) Assessment & Plan Assessment & Plan narrative: Pt is a 82yo woman with hypertension, hyperlipidemia, bipolar disorder, GERD, CVA, paroxysmal atrial fibrillation, and hypothyroidism who presented with acutely worsening LE edema. Most likely due to poor dietary choices and not elevating legs. Significant erythema is concerning for cellulitis as well, despite normal WBC count and procalcitonin. 1) LE edema: With probable overlying cellulitis - S/P 40mg IV Lasix in the ER, reportedly with good urinary output subsequently - Continue home PO Lasix - Re-evaluate for repeat IV Lasix in the AM - Ancef for cellulitis - Blood culture - Echocardiogram tomorrow - Repeat BMP in the AM 2) HTN: BP in acceptable range - Continue home Losartan, Amlodipine 3) Hypothyroidism: - Continue home Levothyroxine 4) Paroxysmal atrial fibrillation: Pt has declined anticoagulation with PCP in the recent past. Will defer to PCP. Currently normal rate. 5) GERD: - Continue home Pantoprazole FEN: Cardiac diet DVT prophylaxis: Lovenox Code status: Full code Dispo: Pending improvement in LE swelling and erythema/cellulitis, and completion of Echo. Potential d/c tomorrow. Admitted under observation status.
[2018-10-09] MEDS: CEFAZOLIN 1 GM/50 ML FROZ.PIGGY IV (18:37)
--- NOTE | 2018-10-09 19:28 | ED_ITS ---
HPI - Extremity Problem General Chief complaint: Extremity Problem,Nontraumatic Stated complaint: lower extemity swelling Time Seen by Provider: 10/09/18 11:13 Source: patient Mode of arrival: ambulatory Limitations: no limitations History of Present Illness HPI Narrative: Patient is an 82-year-old female presenting from her PCP office with increasing lower extremity edema. She states that she has had multiple peo ple over over the past few days and has not been taking care of herself. She actually has a blister on her left leg and her legs are quite erythematous. She has had cough no real shortness of breath or heart palpitations. She may have had a fever a few days ago she is not febrile now, denies any body aches or sweats. She does have a history of paroxysmal atrial fibrillation. She is in AFib now but not RVR. MD Complaint: extremity swelling Relieving factors: nothing Exacerbating factors: nothing Related Data Home Medications Medication Instructions Recorded Confirmed nitroglycerin 0.4 mg sublingual 0.4 mg SL Q5M PRN 11/22/17 10/09/18 tablet furosemide 40 mg PO QAM 12/09/17 10/09/18 [id number]-calcium-mins 1 tab PO DAILY 12/09/17 10/09/18 [Women's One Daily] peg 400-propylene glycol [Systane 1 drp OPHTHALMIC (EYE) PRN PRN 12/09/17 10/09/18 (propylene glycol)] potassium chloride 10 meq PO DAILY 12/09/17 10/09/18 acetaminophen 500 mg tablet 500 mg PO Q6H PRN 12/16/17 10/09/18 Neuoropathy Pain Med 1 dose PO PRN PRN 10/09/18 10/09/18 PreserVision AREDS 1 cap PO BID 10/09/18 10/09/18 furosemide 60 mg PO QPM 10/09/18 10/09/18 levothyroxine 100 mcg PO DAILY 10/09/18 10/09/18 losartan 100 mg PO QPM 10/09/18 10/09/18 Previous Rx's Medication Instructions Recorded meloxicam 7.5 mg tablet 7.5 mg PO DAILY #90 tab 02/15/18 lactobacillus combination no.8 3 3,000 mmu cells PO DAILY #90 cap 03/13/18 billion cell capsule lansoprazole 30 mg capsule,delayed 30 mg PO DAILY #90 cap 03/15/18 release pramipexole 0.5 mg tablet 0.5 mg PO BID #180 tab 08/08/18 amlodipine 10 mg tablet 10 mg PO DAILY #90 tab 09/12/18 metoprolol succinate ER 50 mg 50 mg PO DAILY #90 tab 09/12/18 tablet,extended release 24 hr Disabled Parking Permit See Rx Instructions .ROUTE 09/25/18 .COMPLEX #1 each Allergies Allergy/AdvReac Type Severity Reaction Status Date / Time amitriptyline [AMITRIPTYLINE] Allergy Unknown Verified 10/09/18 10:34 gabapentin [GABAPENTIN] Allergy Unknown Verified 10/09/18 10:34 ANESTHESIA DRUG AdvReac Mild UNSURE FOR Uncoded 10/09/18 09:40 THE NAME 05/31/14 Review of Systems Constitutional Denies chills, Denies fever(s), Denies lethargy and Denies weakness Eyes Denies change in vision, Denies eye discharge, Denies irritation and Denies loss of vision Cardiovascular Denies chest pain, Denies irregular heart rhythm, Denies lightheadedness, Denies palpitations, Denies dyspnea, Denies dyspnea on exertion and Denies orthopnea Respiratory Denies cough, Denies dyspnea, Denies dyspnea on exertion and Denies wheezing Gastrointestinal Gastrointestinal: Denies abdominal pain, Denies change in bowel habits, Denies diarrhea, Denies nausea and Denies vomiting Genitourinary Denies hematuria, Denies flank pain, Denies urinary incontinence and Denies urinary urgency Integumentary/Breasts Reports erythema (lower extremties) Neurologic Denies loss of vision and Denies weakness Endocrine Denies palpitations Allergic/Immunologic Denies wheezing [facility] Medical History Essential hypertension (Chronic 05/22/13) Hyperlipidemia (Chronic 05/22/13) 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) Bipolar I disorder (Chronic 05/22/13) Diverticulosis of colon (Chronic 05/22/13) Gastroesophageal reflux disease (Chronic 05/22/13) Postoperative hypothyroidism (Chronic 05/22/13) Restless legs syndrome (Chronic 05/22/13) Squamous cell carcinoma of skin of face (Resolved 05/22/13) Tremor (Chronic 05/22/13) Benign familial tremor (Chronic) Facial asymmetry (Chronic) Mitral regurgitation (Chronic) Paroxysmal atrial fibrillation (Chronic) Pulmonary nodule (Chronic) Vitamin D deficiency (Chronic) Schatzki's ring (Resolved) Surgical History History of esophagogastroduodenoscopy (EGD) (~05/2006) History of thyroidectomy (~03/2005) Status post cholecystectomy (~12/2004) Status post colposcopy (~12/2008) Family History Father No problems noted. Mother No problems noted. Social History marital status: household members: spouse lives independently: Yes occupational status: other (retired) Smoking Status: Never smoker alcohol intake: never substance use type: does not use Family History Father No problems noted. Mother No problems noted. Social History marital status: household members: spouse lives independently: Yes occupational status: other (retired) Smoking Status: Never smoker alcohol intake: never substance use type: does not use Exam Initial Vital Signs Initial Vital Signs: Vital Signs Temperature 98.1 F 10/09/18 10:31 Pulse Rate 77 10/09/18 10:31 Respiratory Rate 18 10/09/18 10:31 Blood Pressure 134/70 10/09/18 10:31 Pulse Oximetry 100 10/09/18 10:31 GENERAL: Alert pleasant elderly female HEENT: Head atraumatic,EOMI, pupils reactive, CARDIOVASCULAR: Regular rate and rhythm without murmurs, rubs or gallops. RESPIRATORY: Breath sounds equal bilaterally, no wheezes rales or rhonchi. ABDOMEN: Soft, nontender. Normoactive bowel sounds all 4 quadrants. No guarding or rebound. EXTREMITIES: Normal range of motion, no clubbing. Neurovascularly intact. +3 pitting edema NEUROLOGICAL: Alert and oriented x4.Normal gait and speech. SKIN:: Erythema on the lower extremities up to mid leg very sharp demarcated line. She also has a blister on on the left leg above the erythema. Legs are weeping Course Orders Ordered: ED Orders 10/09/18 11:13 XR chest 1V Stat 10/09/18 11:20 Urine Microscopic Stat 10/09/18 11:21 EKG-12 Lead Stat 10/09/18 11:30 BNP [B Type Natriuretic Peptide] Stat Complete Blood Count AUTO DIFF Stat Comprehensive Metabolic Panel Stat Influenza A and B by PCR Rapid Stat Lipase Stat Partial Thromboplastin Time Stat Procalcitonin Stat Prothrombin Time INR Stat Troponin & CK Cardiac Panel Stat 10/09/18 15:51 EC echo doppler complete Routine Education, smoking cessation ONGOING 10/09/18 18:31 Blood Culture Stat 10/10/18 06:00 Basic Metabolic Panel Routine Acetaminophen (Tylenol) 325 mg PO Q6H PRN PRN Reason: pain Amlodipine Besylate (Norvasc) 10 mg PO DAILY [facility] Enoxaparin Sodium (Lovenox) 40 mg SUBCUT DAILY [facility] Furosemide (Lasix) 40 mg PO DAILY [facility] Furosemide (Lasix) 60 mg PO QPM [facility] Last Admin: 10/09/18 16:54 Dose: 60 mg Cefazolin Sodium/Dextrose (Ancef) 1 gm in 50 mls @ 200 mls/hr IV Q8H [facility] Last Admin: 10/09/18 18:37 Dose: 200 mls/hr Lactobacillus Acidophilus (Bacid Caplet) 1 each PO DAILY [facility] Levothyroxine Sodium (Synthroid) 100 mcg PO 0600 [facility] Losartan Potassium (Cozaar) 100 mg PO QPM [facility] Last Admin: 10/09/18 16:55 Dose: 100 mg Meloxicam (Mobic) 7.5 mg PO DAILY [facility] Metoprolol Succinate (Toprol Xl) 50 mg PO DAILY [facility] Multivitamins/Calcium (Thera M Plus) 1 tab PO DAILY [facility] Pantoprazole Sodium (Protonix) 40 mg PO 0600 [facility] Potassium Chloride (Klor-Con M10) 10 meq PO DAILY [facility] Pramipexole Dihydrochloride (Mirapex) 0.5 mg PO BID [facility] Last Admin: 10/09/18 16:55 Dose: 0.5 mg Discontinued Medications Furosemide (Lasix) 40 mg IV NOW ONE Stop: 10/09/18 11:48 Last Admin: 10/09/18 12:12 Dose: 40 mg Furosemide (Lasix) 40 mg IV NOW ONE Stop: 03/25/19 15:52 Last Admin: 10/09/18 16:50 Dose: Not Given Vital Signs - 8 hr 10/09/18 12:30 10/09/18 13:30 10/09/18 16:33 Temperature 97.8 F Pulse Rate 61 62 70 Respiratory Rate 18 16 18 Blood Pressure 142/64 H Blood Pressure [Left Arm] 117/58 L 130/60 Pulse Oximetry 96 93 95 10/09/18 16:55 Temperature Pulse Rate 70 Respiratory Rate Blood Pressure 142/64 H Blood Pressure [Left Arm] Pulse Oximetry MDM - Extremity (Nontraumatic) Lab Data Attestation: I reviewed the patient's lab results. Result diagrams: 10/09/18 11:30 10/09/18 11:30 Lab Results 10/09/18 10/09/18 10/09/18 Range/Units 11:20 11:30 11:30 WBC 9.6 (4.5-11.0) X10^3/uL RBC 4.05 (4.0-5.2) X10^6/uL Hgb 11.7 L (12.0-16.0) g/dL Hct 34.3 L (36-46) % MCV 84.8 (80-100) fL MCH 28.8 (26-34) PG MCHC 34.0 (30-36) % RDW 14.4 (11.6-14.8) % Plt Count 209 (150-400) X10^3/uL Neut % (Auto) 66.9 (50-75) % Lymph % (Auto) 20.2 L (25-40) % [place] % (Auto) 7.2 (3-14) % Eos % (Auto) 5.1 H (2-4) % Baso % (Auto) 0.6 (0-2) % Neut # (Auto) 6400 (8755-3461) /uL Lymph # (Auto) 1900 (2877-9193) /uL [place] # (Auto) 700 (0-900) /uL Eos # (Auto) 500 H (0-450) /uL Baso # (Auto) 100 (0-100) /uL PT 10.8 (10.1-12.7) SECONDS INR 0.9 (0.9-1.3) APTT 23 L (26.4-36.2) SECONDS Sodium (137-145) mmol/L Potassium (3.4-5.1) mmol/L Chloride (98-107) mmol/L Carbon Dioxide (22-32) mmol/L BUN (7-17) mg/dL Creatinine (0.52-1.04) mg/dL Estimated GFR (>60) mL/min BUN/Creatinine Ratio (6-22) Glucose (80-110) mg/dL Calcium (8.4-10.2) mg/dL Total Bilirubin (0.2-1.3) mg/dL AST (14-36) IU/L ALT (9-52) IU/L Alkaline Phosphatase (38-126) U/L Total Creatine Kinase (30-135) U/L CK-MB (CK-2) CK-MB (CK-2) Rel Index Troponin I (0.01-0.034) ng/mL B-Natriuretic Peptide (<100) Total Protein (6.3-8.2) g/dL Albumin (3.5-5.0) g/dL Globulin (1.7-4.1) g/dL Albumin/Globulin Ratio (1.0-2.8) Lipase (23-300) U/L Procalcitonin (<0.5) ng/mL Urine RBC 1-5/hpf (0-5/HPF) Urine WBC None seen (0-5/HPF) Amorphous Sediment 2+ Urine Bacteria None seen (None) Ur Culture Indicated? Cult not indicated Influenza A & B (PCR) (Negative) 10/09/18 10/09/18 10/09/18 Range/Units 11:30 11:30 11:30 WBC (4.5-11.0) X10^3/uL RBC (4.0-5.2) X10^6/uL Hgb (12.0-16.0) g/dL Hct (36-46) % MCV (80-100) fL MCH (26-34) PG MCHC (30-36) % RDW (11.6-14.8) % Plt Count (150-400) X10^3/uL Neut % (Auto) (50-75) % Lymph % (Auto) (25-40) % [place] % (Auto) (3-14) % Eos % (Auto) (2-4) % Baso % (Auto) (0-2) % Neut # (Auto) (2388-8539) /uL Lymph # (Auto) (5228-7122) /uL [place] # (Auto) (0-900) /uL Eos # (Auto) (0-450) /uL Baso # (Auto) (0-100) /uL PT (10.1-12.7) SECONDS INR (0.9-1.3) APTT (26.4-36.2) SECONDS Sodium 139 (137-145) mmol/L Potassium 3.3 L (3.4-5.1) mmol/L Chloride 103 (98-107) mmol/L Carbon Dioxide 27 (22-32) mmol/L BUN 19 H (7-17) mg/dL Creatinine 0.80 (0.52-1.04) mg/dL Estimated GFR > 60.0 (>60) mL/min BUN/Creatinine Ratio 23.8 H (6-22) Glucose 107 (80-110) mg/dL Calcium 8.0 L (8.4-10.2) mg/dL Total Bilirubin 0.5 (0.2-1.3) mg/dL AST 24 (14-36) IU/L ALT 32 (9-52) IU/L Alkaline Phosphatase 70 (38-126) U/L Total Creatine Kinase 35 (30-135) U/L CK-MB (CK-2) TNP CK-MB (CK-2) Rel Index TNP Troponin I < 0.012 (0.01-0.034) ng/mL B-Natriuretic Peptide < 100 (<100) Total Protein 6.5 (6.3-8.2) g/dL Albumin 3.8 (3.5-5.0) g/dL Globulin 2.7 (1.7-4.1) g/dL Albumin/Globulin Ratio 1.4 (1.0-2.8) Lipase 89 (23-300) U/L Procalcitonin (<0.5) ng/mL Urine RBC (0-5/HPF) Urine WBC (0-5/HPF) Amorphous Sediment Urine Bacteria (None) Ur Culture Indicated? Influenza A & B (PCR) Negative (Negative) 10/09/18 Range/Units 11:30 WBC (4.5-11.0) X10^3/uL RBC (4.0-5.2) X10^6/uL Hgb (12.0-16.0) g/dL Hct (36-46) % MCV (80-100) fL MCH (26-34) PG MCHC (30-36) % RDW (11.6-14.8) % Plt Count (150-400) X10^3/uL Neut % (Auto) (50-75) % Lymph % (Auto) (25-40) % [place] % (Auto) (3-14) % Eos % (Auto) (2-4) % Baso % (Auto) (0-2) % Neut # (Auto) (0689-3858) /uL Lymph # (Auto) (0528-5764) /uL [place] # (Auto) (0-900) /uL Eos # (Auto) (0-450) /uL Baso # (Auto) (0-100) /uL PT (10.1-12.7) SECONDS INR (0.9-1.3) APTT (26.4-36.2) SECONDS Sodium (137-145) mmol/L Potassium (3.4-5.1) mmol/L Chloride (98-107) mmol/L Carbon Dioxide (22-32) mmol/L BUN (7-17) mg/dL Creatinine (0.52-1.04) mg/dL Estimated GFR (>60) mL/min BUN/Creatinine Ratio (6-22) Glucose (80-110) mg/dL Calcium (8.4-10.2) mg/dL Total Bilirubin (0.2-1.3) mg/dL AST (14-36) IU/L ALT (9-52) IU/L Alkaline Phosphatase (38-126) U/L Total Creatine Kinase (30-135) U/L CK-MB (CK-2) CK-MB (CK-2) Rel Index Troponin I (0.01-0.034) ng/mL B-Natriuretic Peptide (<100) Total Protein (6.3-8.2) g/dL Albumin (3.5-5.0) g/dL Globulin (1.7-4.1) g/dL Albumin/Globulin Ratio (1.0-2.8) Lipase (23-300) U/L Procalcitonin < 0.05 (<0.5) ng/mL Urine RBC (0-5/HPF) Urine WBC (0-5/HPF) Amorphous Sediment Urine Bacteria (None) Ur Culture Indicated? Influenza A & B (PCR) (Negative) Urine Dip Bedside Urine Glucose Negative Bedside Urine Bilirubin - Negative Bedside Urine Ketone - Negative Urine Specific [place] 1.025 Bedside Urine Occult Blood +/- Bedside Urine pH 6.0 Bedside Urine Protein - Negative Bedside Urine Urobilinogen - Negative Bedside Urine Nitrite - Negative Bedside Urine Leukocytes - Negative Esterase Imaging Data Chest x-ray: Radiologist's impression: PROCEDURE: XR CHEST 1V INDICATIONS: chest pain TECHNIQUE: One view of the chest was acquired. COMPARISON: [facility], CHEST 1 VIEW, 02/15/2016, 21:13. FINDINGS: Surgical changes and devices: None. Lungs and pleura: There is mild pulmonary vascular congestion. No focal infiltrate. No pleural effusions or pneumothorax. Mediastinum: Mediastinal contours appear normal. Heart size is enlarged. Bones and chest wall: No suspicious bony lesions. Overlying soft tissues appear unremarkable. IMPRESSION: Cardiomegaly and mild congestion. No focal infiltrate. Dictated by: Chet Rao M.D. on 10/09/2018 at 12:13 ECG Data Attestation EKG: I personally reviewed and interpreted this ECG as follows: Prior ECG tracings: available for review Interpretation: Normal sinus rhythm rate [address] changes no T-wave inversion MDM Narrative Medical decision making narrative: Patient has obvious lower extremity edema with mild pulmonary edema on x-ray. She has no respiratory issues. BNP is less than 100 but does have signs and symptoms consistent with congestive heart failure. She has no leukocytosis she is afebrile negative procalcitonin at this time I think lower extremity erythema is due to edema and not infection. I have discussed case with Dr. Avitia who agrees with no antibiotics at this time she will see and evaluate patient agrees with admission and diuresis. Discharge Plan Departure Patient Disposition: Admitted As Inpatient Clinical Impression: CHF (congestive heart failure) Qualifiers: Heart failure type: other Qualified Code(s): I50.9 - Heart failure, unspecified Discharge Date/Time: 10/09/18 15:43 Interventions: ED Discharge Assessment Last Done: 10/09/18 15:40 Admit Date/Time: 10/09/18 14:58 Admit Provider: Kristin Avitia
[2018-10-09] MEDS: ACETAMINOPHEN 325 MG TABLET PO (22:19)
[2018-10-10] VITALS (10 sets, daily range): BP systolic 98–139; BP diastolic 50–76; PULSE 63–76; RESP 16–18; TEMP 36.2–36.6; O2SAT 92–99
--- NOTE | 2018-10-10 00:55 | PC.NURSE ---
Addendum entered by Archana Whitehead R.N. 10/10/18 05:55: Patient slept at intervals. States pain is only 3/10 and declines offer of pain med. Does states restless legs starting to act up so medicated with Mirapex early per patient request. Up to bathroom x 2 with SBA and is slightly unsteady on feet. Original Note: Patient is alert and oriented. Breath sounds with crackles in right ML and bilateral bases; RA sat 94% HRR. Denies nausea. BT present and passing flatus. Denies dysuria, frequency or urgency with urination. Able to move self in bed. Is provided SBA when out of bed for safety. 3+ bilateral LE edema with erythema starting just above ankles; redness within previously drawn markings. Skin is blistery in appearance and shiny, warm to touch. Has 1 large intact blister just above red area on left anterior lower leg. At shift change states pain was 7/10 in right leg and 3/10 in left leg but had just received Tylenol. States still has pins and needles sensation bilaterally feet and legs. Fall risk score is moderate; bed alarm is activated.
[2018-10-10] MEDS: CEFAZOLIN 1 GM/50 ML FROZ.PIGGY IV ×3 (02:08→18:39)
[2018-10-10] MEDS: SODIUM CHLORIDE 0.9% FLUSH 10 ML IV ×3 (02:09→18:39)
[2018-10-10] MEDS: PANTOPRAZOLE 40 MG TABLET PO (05:51)
[2018-10-10] MEDS: PRAMIPEXOLE 0.25 MG TABLET 0.5 MG PO ×2 (05:51→18:39)
[2018-10-10] MEDS: LEVOTHYROXINE 100 MCG TABLET PO (05:51)
[2018-10-10 06:32] LABS: Blood Urea Nitrogen 18 mg/dL (7-17); Calcium 8.5 mg/dL (8.4-10.2); Carbon Dioxide 29 mmol/L (22-32); Chloride 102 mmol/L (98-107); Estimated Glomerular Filt Rate 53.1 mL/min (>60); Glucose 108 mg/dL (80-110); HEMOLYSIS < 15 (0-50); Potassium 3.5 mmol/L (3.4-5.1); Sodium 138 mmol/L (137-145)
[2018-10-10] MEDS: AMLODIPINE 5 MG TABLET 10 MG PO (09:31)
[2018-10-10] MEDS: MELOXICAM 7.5 MG TABLET PO (09:31)
[2018-10-10] MEDS: LACTOBACILLUS ACIDOPHILUS TABLET 1 EACH PO (09:31)
[2018-10-10] MEDS: METOPROLOL ER 50 MG TABLET PO (09:31)
[2018-10-10] MEDS: POTASSIUM CHLORIDE 10 MEQ TAB PO (09:32)
[2018-10-10] MEDS: MULTIVIT,CALC,MINS/IRON/FOLIC 1 TABLET 1 TAB PO (09:32)
[2018-10-10] MEDS: FUROSEMIDE 40 MG/4 ML VIAL IV (09:32)
[2018-10-10] MEDS: ENOXAPARIN 40 MG/0.4 ML SYRINGE SUBCUT (09:32)
--- NOTE | 2018-10-10 11:15 | PT.IIE ---
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) Bipolar I disorder (Chronic 05/22/13) Diverticulosis of colon (Chronic 05/22/13) Gastroesophageal reflux disease (Chronic 05/22/13) Postoperative hypothyroidism (Chronic 05/22/13) Restless legs syndrome (Chronic 05/22/13) Squamous cell carcinoma of skin of face (Resolved 05/22/13) Tremor (Chronic 05/22/13) Benign familial tremor (Chronic) Facial asymmetry (Chronic) Mitral regurgitation (Chronic) Paroxysmal atrial fibrillation (Chronic) Pulmonary nodule (Chronic) Vitamin D deficiency (Chronic) Schatzki's ring (Resolved) Physical Therapy Inpatient Evaluation/Re-Eval M1 PT/OT-IP Prior Functional Status Start: 10/10/18 12:47 Freq: NEEDED Status: Active Protocol: Document 10/10/18 11:15 RS (Rec: 10/10/18 13:05 [id number]) Medical Review Prior Functional Status Medical History Reviewed Yes Diet/Fluid Consistency Regular Communication no known deficits Mobility and Gait ind without AD, denies falls Activities of Daily Living and IADL's mod ind with showering (sits) otherwise is completely ind Prior Functional Level (Other details) drives Social History Household Members spouse Living Arrangements House Number of Floors (Floors) One Floor Number of Stairs To Enter/Railing? 2STE w/ pole Home Environment Standard Height Toilet Tub/Shower Home Equipment Front Wheel Walker Four Wheel Walker Straight Cane Shower Seat with Backrest Hand Held Shower Hospital Bed Grab Bars Near Toilet Employment Status Retired M2 PT-IP Current Condition Start: 10/10/18 12:47 Freq: NEEDED Status: Active Protocol: Document 10/10/18 11:15 RS (Rec: 10/10/18 13:05 RS [id number]) Physical Therapy Current Condition Current Condition Evaluation Date 10/10/18 Treatment Diagnosis weakness Onset Date 10/08/18 M3 PT-IP Subjective Start: 10/10/18 12:47 Freq: NEEDED Status: Active Protocol: Document 10/10/18 11:15 RS (Rec: 10/10/18 13:05 [id number]) Subjective Physical Therapy Visit Type Type Initial Evaluation Visit Start Time 10:30 Visit Stop Time 11:15 Total Visit Minutes 45 Physical Therapy Visit Comments Patient Comments Pt reports feeling a lot better already, is not open to using an AD Patient Goals go home, no SPC/FWW Therapy Pain Assessment Pain When Pain Assessed At Rest Pain Present Pain Present Denied Pain M4 PT-IP Mobility and Gait Start: 10/10/18 12:47 Freq: NEEDED Status: Active Protocol: Document 10/10/18 11:15 RS (Rec: 10/10/18 13:05 [id number]) PT-Bed Mobility Assessment Supine to Sit Supine to Sit Independent Sit to Supine Sit to Supine Independent Scooting Scooting to Edge of Bed Independent PT-Transfer Assessment Sit to and From Stand Sit to and from Stand Standby Assistance Equipment Transfer Assistive Device Gait Belt Transfers Transfer Destination Bed Chair Toilet Transfer Technique walked Transfer Ability Level of Assist Standby Assistance Comments Mobility Comments Pt is relatively steady when up moving around, does occasionally furniture surf but is not relying furniture Gait Assessment Gait Gait Assistance Required: Standby Assistance Distance (Feet) 150 Assistive Devices Assistive Device Gait Belt Gait Deviations General Gait Pattern Decreased Stride Length Factors Limiting Gait Function Factors Limiting Gait Function Decreased Strength Comments Gait Comments Pt's gait quality is good just not quite at baseline. Pt is slower with slightly short steps. The longer she was up the better the gait quality. Stair Climbing Assessment Comments Stair Climbing Comments not tested, anticipate mod ind by clinical estimate PT-Balance Assessment Sitting Balance and Reactions Static Sitting Balance Ability Normal Dynamic Sitting Balance Ability Normal Standing Balance and Reactions Static Standing Balance Ability Normal Dynamic Standing Balance Ability Good Device Used none M5 PT-IP Objective Assessments Start: 10/10/18 12:47 Freq: NEEDED Status: Active Protocol: Document 10/10/18 11:15 RS (Rec: 10/10/18 13:05 [id number]) Orientation Orientation/Cognition Level of Alertness Alert Orientation Name Age Birthday Month Date Year Day of Week Place Situation Language Function Ability No Deficits Noted Safety Awareness Understands Safety Issues Memory Description No Deficits Noted Gross Range of Motion Upper Extremity ROM Assessment Within Functional Limits Lower Extremity ROM Assessment Within Functional Limits Strength Upper Extremity Strength Assessment Within Functional Limits Lower Extremity Strength Assessment Within Functional Limits M6 PT-IP Treatment Start: 10/10/18 12:47 Freq: NEEDED Status: Active Protocol: Document 10/10/18 11:15 RS (Rec: 10/10/18 13:05 RS [id number]) Physical Therapy Treatment Education Education Provided Safety M7 PT-IP Assessment and Plan Start: 10/10/18 12:47 Freq: NEEDED Status: Active Protocol: Document 10/10/18 11:15 RS (Rec: 10/10/18 13:05 RS [id number]) PT Summary Assessment and Plan Potential Rehabilitation Potential Excellent Status of Condition at Evaluation Stable Summary Impairments Strength Balance Progress Towards Goals Safe For Discharge Assessment Summary Pt is admitted for LE swelling and worsening of BLE neuropathic symptoms. Pt is slightly below reported functional baseline but this is anticipated to improve as pt conitnues to mobilize regularly. Pt is ind with mobility and is safe to discharge home once medically ready. Pt will benefit from OPPT follow-up for higher level balance assessment and intervention, especially as pt 's BLE neuropathy progresses. Goals Bed Mobility Goal Independent Transfer Goal Independent Gait Goal Independent Frequency of Treatment Frequency Of Treatment Discharge Recommendations To Nursing Amount of Assist Needed Standby Assistance Discharge Recommendations PT Discharge Recommendations Home Outpatient PT Equipment Needed for Home Before none Discharge
--- NOTE | 2018-10-10 13:51 | OT.IP.EVAL ---
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) Bipolar I disorder (Chronic 05/22/13) Diverticulosis of colon (Chronic 05/22/13) Gastroesophageal reflux disease (Chronic 05/22/13) Postoperative hypothyroidism (Chronic 05/22/13) Restless legs syndrome (Chronic 05/22/13) Squamous cell carcinoma of skin of face (Resolved 05/22/13) Tremor (Chronic 05/22/13) Benign familial tremor (Chronic) Facial asymmetry (Chronic) Mitral regurgitation (Chronic) Paroxysmal atrial fibrillation (Chronic) Pulmonary nodule (Chronic) Vitamin D deficiency (Chronic) Schatzki's ring (Resolved) Surgical History (Last Reviewed 10/09/18 @ 19:23 by Rita Nowak DO) History of esophagogastroduodenoscopy (EGD) (~05/2006) History of thyroidectomy (~03/2005) Status post cholecystectomy (~12/2004) Status post colposcopy (~12/2008) Occupational Therapy Inpatient Evaluation/Re-Eval M1 PT/OT-IP Prior Functional Status Start: 10/10/18 12:47 Freq: NEEDED Status: Active Protocol: Document 10/10/18 11:15 RS (Rec: 10/10/18 13:05 RS [id number]) Medical Review Prior Functional Status Medical History Reviewed Yes Diet/Fluid Consistency Regular Communication no known deficits Mobility and Gait ind without AD, denies falls Activities of Daily Living and IADL's mod ind with showering (sits) otherwise is completely ind Prior Functional Level (Other details) drives Social History Household Members spouse Living Arrangements House Number of Floors (Floors) One Floor Number of Stairs To Enter/Railing? 2STE w/ pole Home Environment Standard Height Toilet Tub/Shower Home Equipment Front Wheel Walker Four Wheel Walker Straight Cane Shower Seat with Backrest Hand Held Shower Hospital Bed Grab Bars Near Toilet Employment Status Retired M1 PT/OT-IP Prior Functional Status Start: 10/10/18 13:26 Freq: NEEDED Status: Active Protocol: Document 10/10/18 13:26 CCC (Rec: 10/10/18 13:51 [facility] [id number]) Medical Review Prior Functional Status Medical History Reviewed Yes Diet/Fluid Consistency Regular Communication no known deficits Mobility and Gait ind without AD, denies falls Activities of Daily Living and IADL's mod ind with showering (sits) otherwise is completely ind. Pt states still drives and does all IADL , pay bills and takes her own medications. Social History Household Members spouse Living Arrangements House Number of Floors (Floors) One Floor Number of Stairs To Enter/Railing? 2STE w/ pole Home Environment Standard Height Toilet Tub/Shower Home Equipment Front Wheel Walker Four Wheel Walker Straight Cane Shower Seat with Backrest Hand Held Shower Hospital Bed Grab Bars Near Toilet Employment Status Retired Additional Social History Comment Pt use of handle above toilet paper roll and counter on the left to help get up from the toilet. M2 OT-IP Current Condition Start: 10/10/18 13:26 Freq: Status: Active Protocol: Document 10/10/18 13:26 [facility] (Rec: 10/10/18 13:51 [facility] [id number]) Occupational Therapy Current Condition Current Condition Evaluation Date 10/10/18 Treatment Diagnosis CHF, LE swelling Diagnosis Onset Date 10/10/18 M3 OT- IP Subjective and Pain Start: 10/10/18 13:26 Freq: Status: Active Protocol: Document 10/10/18 13:26 [facility] (Rec: 10/10/18 13:51 [facility] [id number]) OT- Subjective Occupational Therapy Visit Type Type Initial Evaluation Visit Start Time 11:05 Visit Stop Time 11:25 Total Visit Minutes 20 Occupational Therapy Visit Comments Patient Comments Pt cooperative and wanting to go home. OT Pain Assessment Pain When Pain Assessed At Rest Pain Present Pain Present Denied Pain M4 OT- IP ADL's Start: 10/10/18 13:26 Freq: Status: Active Protocol: Document 10/10/18 13:26 [facility] (Rec: 10/10/18 13:51 [facility] [id number]) OT ADL-Dressing General Eval Lower Body Dressing Ability Independent OT ADL-Bathing Comments OT Bathing Comments Pt states did not want to shower at this time. M5 OT- IP IADL's Start: 10/10/18 13:26 Freq: Status: Active Protocol: Document 10/10/18 13:26 [facility] (Rec: 10/10/18 13:51 [facility] [id number]) OT-Instrumental Activities of Daily Living Home Safety Awareness Awareness of Need for Assistance at Home Good Awareness Ability to Problem Solve Emergency Able to Problem Solve Situations Home Safety Comments Pt to solve 90% of home safety situations. Medication Management Medication Management No Deficits Identified Money Management Money Management No Deficits Identified M6 OT- IP Functional Cognition Start: 10/10/18 13:26 Freq: Status: Active Protocol: Document 10/10/18 13:26 [facility] (Rec: 10/10/18 13:51 [facility] [id number]) Cognitive Factors Limiting Selfcare Function Cognitive Ability Level of Alertness Alert Patient Orientation Name Age Birthday Month Date Year Day of Week Place Situation Attention Span Ability Capable of Focused Attention Capable of Sustained Attention Ability to Follow Commands Able to Follow Multi-Step Commands Memory Description No Deficits Noted Safety Awareness No Deficits Noted Problem Solving Ability No deficits Noted Executive Function Ability No Deficits Noted Cognitive Comments Cognitive Assessment Comments Pt no deficits noted. Pt scored 74 Seconds with [place] [employer] states score of greater than 180 seconds implies greater chance of getting into a car accident. Pt educated of energy conservation and aware that she was just doing too much and knows now to take breaks and to be sure to put her feet up throughout the day. Educated pt on making sure her slippers fit well or just wear non skid socks and has to get up to the bathroom often. OT- Vision and Hearing OT- Hearing Assessment OT- Hearing Assessment WFL M7 OT- IP Mobility and Balance Start: 10/10/18 13:26 Freq: Status: Active Protocol: Document 10/10/18 13:26 [facility] (Rec: 10/10/18 13:51 [facility] [id number]) OT-Transfer Assessment Sit to and From Stand Sit to and from Stand Independent Transfers Transfer Ability Independent Technique Transfer Destination Chair Devices Transfer Assistive Devices None Comments Mobility Comments Pt able to mobilize independently in the room on her own. OT- Balance Assessment Sitting Balance and Reactions Static Sitting Balance Ability Normal Dynamic Sitting Balance Ability Normal Standing Balance and Reactions Static Standing Balance Ability Normal Dynamic Standing Balance Ability Good M8 OT- IP Objective Assessments Start: 10/10/18 13:26 Freq: Status: Active Protocol: Document 10/10/18 13:26 [facility] (Rec: 10/10/18 13:51 [facility] [id number]) OT Gross Range of Motion Upper Extremity Range of Motion Assessment Within Functional Limits OT Strength Comments Strength Comments BUE4/5 OT- Coordination Assessment Upper Extremity Finger to Nose Test Within Functional Limits M9 OT- IP Assessment and Plan Start: 10/10/18 13:26 Freq: Status: Active Protocol: Document 10/10/18 13:26 [facility] (Rec: 10/10/18 13:51 [facility] [id number]) OT Summary Assessment and Plan Potential Rehabilitation Potential Excellent Analytic Complexity at Evaluation Low Summary Progress Towards Goals Goals Met Assessment Summary Pt low complexity and main barrier is decreased activity tolerance , otherwise has been YOSVANY in the room without AED. Pt given information regarding energy conservation needs. Pt has and 's son to assist at home for needs. Therefore discharge pt for OT needs. Goals Days to Meet Goals 1 Frequency of Treatment Frequency Of Treatment Once a Day Treatment Plan OT Treatment Plan Discharge Planning Discharge Recommendations OT Discharge Recommendations Home with Assistance Home Equipment Needs [facility]
[2018-10-10] MEDS: ACETAMINOPHEN 325 MG TABLET PO (16:34)
[2018-10-10] MEDS: LOSARTAN 50 MG TABLET 100 MG PO (16:36)
[2018-10-10] MEDS: FUROSEMIDE 20 MG TABLET 60 MG PO (16:37)
--- NOTE | 2018-10-10 17:04 | PM.PN.1 ---
Subjective Date Patient Seen: 10/10/18 Time Patient Seen: 07:50 Interval history: Pt reports that she is feeling slightly improved today. She continues to complain primarily of difficulty breathing when laying flat, and pain on the bottom of her feet with ambulation. She continues to deny any chest pain. Her legs are feeling better. Exam Vital Signs (past 8 hours): - 10/10/18 12:00 10/10/18 15:15 10/10/18 16:36 Temperature 98 F 97.9 F Pulse Rate 68 76 76 Respiratory Rate 18 18 Blood Pressure 135/70 139/76 139/76 Pulse Oximetry 98 95 Oxygen Delivery Method Room Air Oxygen Flow Rate 0 Narrative Exam Narrative: GEN - alert, cooperative and no distress, sitting comfortably in chair HEENT - normocephalic and atraumatic, sclera white, moist mucus membranes, throat non-erythematous HEART - RRR, S1, S2 normal, no S3 or S4, no murmurs LUNGS - symmetric chest rise, no accessory muscles, no crackles, no wheezing EXT - 2+ pitting edema bilateral LE to knee level with tight skin, significant erythema bilateral legs decreased slightly below lines drawn yesterday, warmth improved as well, tender to palpation, approximately 2cm diameter blister present superior aspect of erythema on left leg with clear fluid present deflated slightly from yesterday NEURO - no gross deficits Objective Labs Result Diagrams: 10/09/18 11:30 10/10/18 05:47 Labs: Laboratory Results - last 24 hr 10/10/18 05:47 Sodium 138 Potassium 3.5 Chloride 102 Carbon Dioxide 29 BUN 18 H Creatinine 1.00 Estimated GFR 53.1 L BUN/Creatinine Ratio 18.0 Glucose 108 Calcium 8.5 Assessment & Plan Assessment & Plan narrative: Pt is a 82yo woman with hypertension, hyperlipidemia, bipolar disorder, GERD, CVA, paroxysmal atrial fibrillation, and hypothyroidism who presented with acutely worsening LE edema. Most likely due to poor dietary choices and not elevating legs. Significant erythema is concerning for cellulitis as well, despite normal WBC count and procalcitonin. 1) LE edema: With probable overlying cellulitis - S/P 40mg IV Lasix in the ER, reportedly with good urinary output subsequently - Repeat 40mg IV Lasix this AM due to persistent orthopnea and LE edema - Continue home PO Lasix, hold AM dose - Ancef for cellulitis - F/u blood culture - Echocardiogram today 2) HTN: BP in acceptable range - Continue home Losartan, Amlodipine 3) Hypothyroidism: - Continue home Levothyroxine 4) Paroxysmal atrial fibrillation: Pt has declined anticoagulation with PCP in the recent past. Will defer to PCP. Currently normal rate. 5) GERD: - Continue home Pantoprazole FEN: Cardiac diet DVT prophylaxis: Lovenox Code status: Full code Dispo: Possibly ready for d/c later today vs tomorrow pending continued diuresis and echo. Addendum: Echocardiogram showing normal EF, overall reassuring. When checked on pt this afternoon, laying flat in bed without any SOB. LE edema continues to improve. Pt is ready for d/c home, however no ride this evening. Will plan to d/c in the AM.
--- NOTE | 2018-10-10 17:22 | CM.DPC ---
DCP/Assessment: Reviewed chart. Patient is a 82yr old female admitted to [facility] for lower extremity swelling. PCP is Dr. Salinas. Primary payor is 1)Medicare 2)[facility]. Met with patient explained CM/SW role. Patient sitting near window at time of visit. Patient reports that she resides with her spouse and plans to d/c home tomorrow. Patient does not anticipate any d/c planning needs. Currently patient with swollen bilateral lower legs. Patient does not anticipate any issues. She hopes that her swelling goes down by tomorrow. Spoke with Dr. Avitia and she confirms discharge tomorrow. Patient evaluated by therapy and home recommended. P: Home when stable. CAYETANO Baez Discharge Planning/Care Management CM Discharge Assessment Start: 10/10/18 17:20 Freq: Status: Active Protocol: Document 10/10/18 17:20 KJS (Rec: 10/10/18 17:22 KJS [id number]) Discharge Planning Assessment Assigned Equipment Scheduler CAYETANO Baez Advance Directives? No History Provided By Patient Medical Record Prior Living Arrangements House Household Members spouse Type of transporation used prior to Drives own vehicle admit Independent with ADL's Yes Is patient alert and oriented? Yes Caregiver for Another No Barriers to Discharge No Discharge Plan Home Referrals Initiated None needed Whiteboard Updated in Patient Room with Yes name and ext. # of Equipment Scheduler Review Status In Process Please Provide Date Initial DC 10/10/18 Assessment Was Performed Next Review Type Continued Stay Review
[2018-10-11] MEDS: CEFAZOLIN 1 GM/50 ML FROZ.PIGGY IV ×2 (02:24→10:10)
[2018-10-11 05:26] VITALS: BP 126/56; PULSE 71; RESP 18; TEMP 36.7; O2SAT 95
[2018-10-11] MEDS: LEVOTHYROXINE 100 MCG TABLET PO (05:58)
[2018-10-11] MEDS: PANTOPRAZOLE 40 MG TABLET PO (05:58)
[2018-10-11 08:30] VITALS: O2SAT 98
--- NOTE | 2018-10-11 08:42 | PM.DS.1 ---
History of Present Illness Date Patient Seen: 10/11/18 Time Patient Seen: 07:49 Chief complaint: lower extemity swelling Narrative: Patient is an 82-year-old woman with hypertension, hyperlipidemia, GERD, hypothyroidism, atrial fibrillation and history of CVA also with chronic lower extremity edema. She presented to the clinic due to worsening lower extremity edema and erythema and was sent to the emergency department. In the days prior to admission she had been quite busy entertaining company at her home and had been taking her Lasix regularly but not using compression stockings or putting her feet up. Also admits to not watching the salt in her diet. She was also complaining of fevers and chills in the days prior to admission and increasing shortness of breath. Denied chest pain. In the emergency department labs were reassuring however chest x-ray showed cardiomegaly and mild congestion. She was admitted for diuresis and further workup of possible heart failure. Discharge Providers Date of admission: 10/10/18 10:07 Discharge Date: 10/11/18 Primary care physician: Nicole Salinas DO Consults: 10/10/18 08:15 Consult to Physical Therapy Evaluate & Treat Comment: Physician Instructions: Evaluate and Treat 10/10/18 08:16 Consult to Occupational Therapy Evaluate & Treat Comment: Physician Instructions: Evaluate and treat Discharge provider: Nicole Salinas DO Summary Discharge Diagnosis: Chronic lower extremity edema Venous stasis dermatitis Hypertension GERD Hypothyroidism Hospital Course: Patient was admitted for acute on chronic lower extremity edema as well as concern for cellulitis. She received IV Lasix in the ER which was continued after admission. Also started on Ancef for possible cellulitis though given equal appearance of erythema without exudate, suspect changes are due to chronic venous stasis rather than infection. Edema improved and she was transitioned back to her usual Lasix. Workup was reassuring against acute heart failure with normal BNP and normal ejection fraction on echocardiogram however it did show evidence of diastolic dysfunction. Recommended patient resume her usual compression stockings and daily elevation of her legs. She was also given tubigrips in the hospital for her edema to use when compression stockings are too difficult. Remaining chronic issues of hypertension, hypothyroidism and GERD were managed on her usual medications without issues. She has a questionable history of atrial fibrillation which was not addressed during this hospitalization. She will discharge to complete her course of oral antibiotics. Patient will follow up in clinic in 2 weeks. Exam Vital Signs (past 8 hours): - 10/11/18 05:26 Temperature 98.0 F Pulse Rate 71 Respiratory Rate 18 Blood Pressure 126/56 L Pulse Oximetry 95 Oxygen Delivery Method Room Air Oxygen Flow Rate 0 Narrative Exam Narrative: General: Well-appearing older woman sitting up in the chair, polite and conversational HEENT: NCAT, EOMI, moist oral mucosa CV: Regular rate and rhythm, no murmurs, rubs or gallops Lungs: CTAB, no wheezes, rales, or rhonchi Extremities: 1 to 2+ pitting edema bilateral lower extremities to upper shins. Equal bright erythema of bilateral lower extremities. Open 2 cm blister left anterior abrams without exudate. Objective Labs Result Diagrams: 10/09/18 11:30 10/10/18 05:47 Discharge Plan Discharge Plan Patient Disposition: Home Discharge comment: Ok to discharge after 10 AM ceftriaxone Discharge Med Rec/Prescriptions Prescriptions: New cephalexin [Keflex] 500 mg capsule 500 mg PO TID Qty: 21 RF: 0 Continued meloxicam 7.5 mg tablet 7.5 mg PO DAILY Qty: 90 RF: 1 lansoprazole 30 mg capsule,delayed release(DR/EC) 30 mg PO DAILY Qty: 90 RF: 3 pramipexole 0.5 mg tablet 0.5 mg PO BID Qty: 180 RF: 1 metoprolol succinate 50 mg tablet extended release 24 hr 50 mg PO DAILY Qty: 90 RF: 1 amlodipine 10 mg tablet 10 mg PO DAILY Qty: 90 RF: 1 Disabled Parking Permit See Rx Instructions .ROUTE .COMPLEX Qty: 1 RF: 0 nitroglycerin 0.4 mg tablet, sublingual 0.4 mg SL Q5M PRN (Reason: Chest Pain) RF: 0 acetaminophen [Tylenol Extra Strength] 500 mg tablet 500 mg PO Q6H PRN (Reason: pain) RF: 0 lactobacillus combination no.8 [Adult Probiotic] 3 billion cell capsule 3,000 mmu cells PO DAILY Qty: 90 RF: 0 furosemide 20 mg tablet 40 mg PO QAM RF: 0 potassium chloride 10 mEq capsule, extended release 10 meq PO DAILY RF: 0 peg 400-propylene glycol 0.4-0.3 % drops 1 drp ophthalmic (eye) PRN PRN (Reason: Dry Eyes) RF: 0 Women's One Daily 18 mg iron-400 mcg-500 mg Ca Tablet 1 tab PO DAILY RF: 0 levothyroxine 100 mcg tablet 100 mcg PO DAILY RF: 0 furosemide 20 mg tablet 60 mg PO QPM RF: 0 Neuoropathy Pain Med 1 dose PO PRN PRN (Reason: neuropathy pain) RF: 0 PreserVision AREDS 1 cap PO BID RF: 0 losartan 100 mg tablet 100 mg PO QPM RF: 0 Follow up/Referrals: Nicole Salinas DO [Primary Care Provider] - 2 Weeks (*appt: 10/25 @ 2:[address] Salinas @ [facility] [phone] ) Visit Report/Discharge Packet Instructions: DI for Cellulitis -- Adult, Heart Failure, DI for Heart Failure, Lifestyle Habits May Lower Lifetime Risk of Heart Failure in Men Discharge Data Primary Care Provider: Nicole Salinas Attending Provider: Kristin Avitia Admit Date/Time: 10/10/18 10:07 Discharges patient from system. Discharge Date/Time: 10/11/18 11:06
[2018-10-11 09:00] VITALS: BP 130/68; PULSE 73; RESP 16; TEMP 36.6; O2SAT 93
[2018-10-11] MEDS: METOPROLOL ER 50 MG TABLET PO (09:06)
[2018-10-11] MEDS: POTASSIUM CHLORIDE 10 MEQ TAB PO (09:06)
[2018-10-11] MEDS: LACTOBACILLUS ACIDOPHILUS TABLET 1 EACH PO (09:06)
[2018-10-11] MEDS: AMLODIPINE 5 MG TABLET 10 MG PO (09:06)
[2018-10-11] MEDS: MULTIVIT,CALC,MINS/IRON/FOLIC 1 TABLET 1 TAB PO (09:06)
[2018-10-11] MEDS: MELOXICAM 7.5 MG TABLET PO (09:06)
[2018-10-11] MEDS: PRAMIPEXOLE 0.25 MG TABLET 0.5 MG PO (09:06)
[2018-10-11] MEDS: ENOXAPARIN 40 MG/0.4 ML SYRINGE SUBCUT (09:06)
[2018-10-11] MEDS: SODIUM CHLORIDE 0.9% FLUSH 10 ML IV (10:11)
[2018-10-11] MEDS: FUROSEMIDE 40 MG TABLET PO (10:11)
--- NOTE | 2018-10-11 10:52 | CM.DPC ---
DCP Discharge Home Per MD, pt is medically stable to d/c home with spouse today and no identified barriers to discharge. SW met bedside with pt and spouse and explained role and provided pt with her Medicare Rights and pt and spouse acknowledged understanding and pt signed her Medicare Message. Pt states they are comfortable with d/c home today. Plan: Patient to d/c home today via spouse POV and no SW needs at this time. CAYETANO Paige
== END 2018-10-11 11:06 | disposition home or self-care (01) | DRG 603 ==
LOC: ED 14:57 → AC 16:37
PROVIDERS: Admitting Provider Family Medicine; Emergency Provider Emergency Medicine; PCP Family Medicine; Visit Provider Family Medicine
DX: L03.116 Cellulitis of left lower limb (principal); L03.115 Cellulitis of right lower limb; I48.0 Paroxysmal atrial fibrillation; F31.9 Bipolar disorder, unspecified; R60.0 Localized edema; I10 Essential (primary) hypertension; E78.5 Hyperlipidemia, unspecified; K21.9 Gastro-esophageal reflux disease without esophagitis; E03.9 Hypothyroidism, unspecified; I87.003 Postthrombotic syndrome without complications of bilateral lower extremity; I51.89 Other ill-defined heart diseases
CPT/HCPCS: 36415; 36591; 71045; 80048; 80053; 81003; 81015; 82550; 83690; 83880; 84145; 84484; 85025; 85610; 85730; 87040; 87400; 93005; 93306; 96374; 97161; 97165; 97530; 99219; 99232; 99238; 99285; G0378; J1650; J1940; Q9957

== ENCOUNTER → 2018-10-16 13:43 | Outpatient (CLI) | payer MEDICARE, OTHER, SELFPAY ==
[2018-10-09 15:56] VITALS: BMI 32.3
[2018-10-16 15:39] LABS: Add Manual Diff / Slide Review NO; Basophils Absolute Auto 0 /uL (0-100); Basophils Percent Auto 0.5 % (0-2); Eosinophils Absolute Auto 900 /uL (0-450); Eosinophils Percent Auto 9.7 % (2-4); Hematocrit 37.9 % (36-46); Hemoglobin 12.1 g/dL (12.0-16.0); Lymphocytes Absolute Auto 2300 /uL (1100-4500); Lymphocytes Percent Auto 25.6 % (25-40); Mean Corpuscular Hemoglobin 27.6 PG (26-34); Mean Corpuscular Volume 86.3 fL (80-100); Monocytes Absolute Auto 500 /uL (0-900); Monocytes Percent Auto 5.2 % (3-14); Neutrophils Absolute Auto 5300 /uL (1500-7000); Platelet Count 288 X10^3/uL (150-400); Red Blood Cell Count 4.39 X10^6/uL (4.0-5.2); Red Cell Distribution Width 14.4 % (11.6-14.8); White Blood Cell Count 8.9 X10^3/uL (4.5-11.0)
[2018-10-16 15:46] LABS: Alanine Aminotransferase 26 IU/L (9-52); Albumin Globulin Ratio 1.5 (1.0-2.8); Alkaline Phosphatase 80 U/L (38-126); Aspartate Aminotransferase 24 IU/L (14-36); BUN Creatinine Ratio 28.3 (6-22); Bilirubin Total 0.3 mg/dL (0.2-1.3); Blood Urea Nitrogen 34 mg/dL (7-17); Carbon Dioxide 27 mmol/L (22-32); Chloride 101 mmol/L (98-107); Globulin 2.6 g/dL (1.7-4.1); Glucose 107 mg/dL (80-110); HEMOLYSIS < 15 (0-50); Potassium 3.4 mmol/L (3.4-5.1); Sodium 139 mmol/L (137-145); Total Protein 6.6 g/dL (6.3-8.2)
== END ==
PROVIDERS: PCP Family Medicine; Visit Provider Family Medicine
DX: L03.115 Cellulitis of right lower limb (principal); L03.116 Cellulitis of left lower limb
CPT/HCPCS: 36415; 80053; 85025

== ENCOUNTER → 2019-01-15 15:26 | Outpatient (CLI) | payer MEDICARE, OTHER, SELFPAY ==
[2018-10-09 15:56] VITALS: BMI 32.3
--- NOTE | 2019-01-15 15:29 | DI.RAD.S_ITS ---
PROCEDURE: XR LUMBAR SPINE 2-3V INDICATIONS: Lower back pain TECHNIQUE: 3 views of the lumbar spine were acquired. COMPARISON: None. FINDINGS: Bones: 5 [id number] vertebrae are present. There is normal bony alignment. No vertebral body compression fractures. No suspicious bony lesions. Multilevel degenerative disc isloc and facet arthropathy. Soft tissues: Overlying bowel gas pattern is normal. No suspicious soft tissue calcifications. IMPRESSION: No evidence acute bony abnormality of the lumbar spine. Degenerative disc disease and facet arthropathy. Dictated by: Patrick Buchanan M.D. on 01/15/2019 at 15:54 Approved by: Patrick Buchanan M.D. on 01/15/2019 at 15:54
== END ==
PROVIDERS: PCP Family Medicine; Visit Provider Registered Nurse
DX: M54.5 Low back pain (principal); M51.36 Other intervertebral disc degeneration, lumbar region; M47.816 Spondylosis without myelopathy or radiculopathy, lumbar region
CPT/HCPCS: 72100

== ENCOUNTER 2019-01-16 10:33 | Outpatient (RCR) | payer MEDICARE, OTHER, SELFPAY ==
[2018-10-09 15:56] VITALS: BMI 32.3
--- NOTE | 2019-01-16 11:16 | PT.OIE ---
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) Bipolar I disorder (Chronic 05/22/13) Diverticulosis of colon (Chronic 05/22/13) Gastroesophageal reflux disease (Chronic 05/22/13) Postoperative hypothyroidism (Chronic 05/22/13) Restless legs syndrome (Chronic 05/22/13) Squamous cell carcinoma of skin of face (Resolved 05/22/13) Tremor (Chronic 05/22/13) Benign familial tremor (Chronic) Facial asymmetry (Chronic) Mitral regurgitation (Chronic) Paroxysmal atrial fibrillation (Chronic) Pulmonary nodule (Chronic) Vitamin D deficiency (Chronic) Schatzki's ring (Resolved) Past Surgical History (Last Reviewed 10/27/18 @ 08:24 by Nicole Salinas DO) History of esophagogastroduodenoscopy (EGD) (~05/2006) History of thyroidectomy (~03/2005) Status post cholecystectomy (~12/2004) Status post colposcopy (~12/2008) Provider Visit Care Team Role Provider Type Nicole Salinas DO Primary Care Provider Physician Specialty: Family Practice Address: [address] [place] [address], [facility] Email: [email or web address] Attending Provider Advanced Superintendent Stations Specialty: Medical Address: [address] [place] [address], [facility] Email: Physical Therapy Initial Evaluation PT-OP-A Visit Information Start: 01/16/19 11:16 Freq: Status: Active Protocol: Document 01/16/19 11:16 ALBA (Rec: 01/16/19 12:10 ALBA [id number]) Out-Patient Physical Therapy Visit Information Visit Information Visit Type Initial Evaluation Visit Start Time 11:15 Visit Stop Time 12:15 Total Visit Minutes 60 Visit Number 1 Number of NUT SORTER Visits 0 Evaluation Information Evaluation Date 01/16/19 PT-OP-B Current Condition Start: 01/16/19 11:16 Freq: Status: Active Protocol: Document 01/16/19 11:16 ALBA (Rec: 01/16/19 12:10 ALBA [id number]) Current Condition History of Current Condition Onset Date 01/12/19 History of Current Condition Getting bedroom ready for company, lifted corner of mattress to make bed and had immediate sharp onset of pain. Advised by doctor to use heat, get up and move frequently. Has been prescribed pain medications. Reports constant , bilateral LBP, denies N/T. Having difficulty walking or doing other usual activity, unable to sleep due to pain. Has cane at home but doesn't know how to use. Requested handheld assistance for walking back to treatment room , but refused ride in wheelchair. Prior Treatments and Tests x-ray yesterday showed degenerative disc disease and facet arthropathy in lumbar spine Future Testing and Treatments Planned none planned Prior Functional Status Baseline Function- ADL's Modified Independent Baseline Function- Mobility Independent Baseline Function- Work/School Independent with household activities Baseline Function- Other cooking, housework. Current Functional Impairments (Reported) Functional Limitations- ADL's painful and difficult Functional Limitations- Mobility/Gait limited to short distance household. Friend brought her to therapy today, needs assist. 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 Personal Factors Other Personal Factors That May Effect PMH: arthritis, HTN, squamous Therapy/Recovery cell facial CA, depression, bipolar disorder , TUSCARORA, candice LE neuropathy, thyroid dysfunction, varicose veins, cardiac history with a-fib, CVA Multiple pain medications: nitroglycerin 0.4 mg sublingual tablet 0.4 mg SL Q5M PRN 11/22/17 [History Confirmed 01/15/19] Women's One Daily 1 tab PO DAILY 12/09/17 [History Confirmed 01/15/19] furosemide 40 mg PO QAM [History Confirmed 01/15/19 ] peg 400-propylene glycol 1 drp OPHTHALMIC (EYE) PRN PRN [History Confirmed 01/15] acetaminophen 500 mg tablet 500 mg PO Q6H PRN 12/16/17 [ History Confirmed 01/15/19] lactobacillus combination no.8 3 billion cell capsule 3,000 mmu cells PO DAILY #90 cap [Rx Confirmed 01/15/19] lansoprazole 30 mg capsule, delayed release 30 mg PO DAILY #90 cap 03/15/18 [Rx Confirmed 01/15/19] pramipexole 0.5 mg tablet 0.5 mg PO BID #180 tab 08/08/18 [ Rx Confirmed 01/15/19] amlodipine 10 mg tablet 10 mg PO DAILY #90 tab 09/12/18 [Rx Confirmed 01/15/19] metoprolol succinate ER 50 mg tablet,extended release 24 hr 50 mg PO DAILY #90 tab [Rx Confirmed 01/15/19] Disabled Parking Permit See Rx Instructions .ROUTE .COMPLEX #1 each 09/25/18 [Rx Confirmed 01/15/19] Neuoropathy Pain Med 1 dose PO PRN PRN 10/09/18 [History Confirmed 01/15/19] PreserVision AREDS 1 cap PO BID 10/09/18 [History Confirmed 01/15/19] potassium chloride ER 10 mEq capsule,extended release 10 meq PO DAILY #30 cap 10/13/18 [Rx Confirmed 01/15/19] levothyroxine 100 mcg tablet 100 mcg PO DAILY #90 tab 11/13 [Rx] furosemide 20 mg tablet 40 mg PO QPM tab 01/15/19 [History Confirmed 01/15/19] meloxicam 7.5 mg tablet 7.5 mg PO DAILY #30 tab 01/15/19 [Rx ] PT-OP-C Subjective Start: 01/16/19 11:16 Freq: Status: Active Protocol: Document 01/16/19 11:16 SAK (Rec: 01/17/19 10:17 SAK [id number]) Patient Questionnaires Lower Extremity Functional Scale LEFS Impairment 40 to 59% Impaired (Score 32- 47) Oswestry Low Back Index Oswestry Score 62 Oswestry Impairment 60 to 79% Impaired (Score 60- 79) OP-PT Pain Assessment Pain Assessment Grid Paper Pain Assessment Grid Completed Yes Location candice lumbar spine Intensity 6 Scale Used Numeric (1 - 10) Description Aching Pressure Spasm Tender Throbbing With Movement Frequency Frequent Pain Aggravating Factors Changing Position ADL's Activity Pain Alleviating Factors None Pain Behaviors Pain Behaviors Facial Grimacing Guarding Wincing PT-OP-G Mobility & Gait Start: 01/16/19 11:16 Freq: Status: Active Protocol: Document 01/16/19 11:16 SAK (Rec: 01/17/19 10:17 SAK [id number]) OP Mobility Evaluation Bed Mobility Rolling SBA with c/o pain. Instructed in log roll for back protection Supine to and from Sit min assist Transfers Sit to Stand SBA with c/o pain OP Gait Assessment Gait Gait Assistance Required: Minimum Assistance Distance (Feet) 50 Gait Deviations General Gait Pattern Antalgic Decreased Stride Length Decreased Feet Clearance Flexed Trunk Factors Limiting Gait Function Factors Limiting Gait Function Pain Comments Gait Comments handhold assist Stair Climbing Evaluation Comments Stair Climbing Comments not assessed due to pain, activity intolerance PT-OP-H Neuro Start: 01/16/19 11:16 Freq: Status: Active Protocol: Document 01/16/19 11:16 SAK (Rec: 01/17/19 15:02 [facility] [id number]) Sensation Evaluation Comments Summary Comments denies N/T from new injury. Has some numbness bilateral feet and lower legs in stocking distribution from neuropathy PT-OP-J Posture/Palpation/Skin Start: 01/16/19 11:16 Freq: Status: Active Protocol: Document 01/16/19 11:16 SAK (Rec: 01/17/19 14:44 [facility] [id number]) Posture Evaluation Position Standing Head/C-Spine Posture Forward Head T-Spine Posture Increased Kyphosis L-Spine Posture Increased Lordosis Shoulder Posture (L) Rounded (R) Rounded Pelvis Posture Anteriorly Tilted Palpation Assessment Location lumbar spine Palpation Findings Soft Tissue Tightness Tenderness PT-OP-K Range of Motion Start: 01/16/19 11:16 Freq: Status: Active Protocol: Document 01/16/19 11:16 SAK (Rec: 01/17/19 14:44 [facility] [id number]) Lumbar Spine Range of Motion Lumbar Spine Active Testing Position Standing ROM Limitations Pain Comments mod to severely limited all motions due to pain Hip Goniometric Range of Motion Hip ROM Limitations Hip ROM Limitations Pain Knee Goniometric Range of Motion Knee candice Knee ROM WFL Yes Ankle and Foot Goniometric Range of Motion Ankle and Foot candice Ankle/Foot ROM WFL Yes PT-OP-M Strength Start: 01/16/19 11:16 Freq: Status: Active Protocol: Document 01/16/19 11:16 SAK (Rec: 01/17/19 15:02 SAK [id number]) Trunk Strength Trunk Manual Muscle Testing Reason Not Measured Pain Hip Strength Hip Manual Muscle Testing candice Reason Not Measured Pain Knee Strength Knee Manual Muscle Testing candice Flexion (S2) 4+ Good+ Extension (L3) 4+ Good+ Ankle/Foot Strength Ankle and Foot Manual Muscle Testing candice Dorsiflexion (L4) 5 Normal Plantarflexion (S1) 5 Normal PT-OP-Q Treatments Start: 01/16/19 11:16 Freq: Status: Active Protocol: Document 01/16/19 11:16 SAK (Rec: 01/17/19 15:02 SAK [id number]) Self-Care/Home Management Treatment Education Patient Education Home Exercise Program Pain Management PT-OP-R Modalities Start: 01/16/19 11:16 Freq: Status: Active Protocol: Document 01/16/19 11:16 SAK (Rec: 01/17/19 15:02 SAK [id number]) Hot Pack/Cold Pack Treatment Hot Pack Location candice lumbar spine Patient Position Sidelying Treatment Duration (minutes) 15 Patient Tolerance Good Comments patient fell asleep Ultrasound Therapy Treatment candice lumbar spine Treatment Duration (minutes) 10 Patient Position Sidelying Coupling Medium Ultrasound Gel Frequency Setting (mHz) 1 Mode Setting Continuous Duty Cycle 100% Intensity Setting (w/cm2) 1.5 PT-OP-T Assessment and Plan Start: 01/16/19 11:16 Freq: Status: Active Protocol: Document 01/16/19 11:16 SAK (Rec: 01/17/19 15:02 [facility] [id number]) Physical Therapy Assessment Rehab Potential Rehabilitation Potential Good Evaluation Complexity Number of Personal Factors/Comorbidities 3 or More Number of Body Systems Impaired 4 or More Clinical Presentation at Evaluation Unstable Impairments Impairments Activity Tolerance Gait Pain Soft Tissue Mobility Goals lumbar paraspinal muscle guarding and spasms Impairment lumbar paraspinal muscle guarding and spasms Short Term Goal (STG) Decrease muscle guarding and spasms 50% STG Duration 03/02/19 Care Home Goal (LTG) Normalize muscle tone in lumbar paraspinals LTG Duration 04/18/19 pain Impairment pain 6/10 Short Term Goal (STG) Decrease pain to no greater than 3/10 STG Duration 03/02/19 Ornamental Ironworking Supervisor Goal (LTG) Decrease pain to no greater than 1-2/10 LTG Duration 04/18/19 gait dysfunction Impairment requires assistance with gait Short Term Goal (STG) Patient able to ambulate within her home without an increase in pain or need for assistive device STG Duration 03/02/19 Ornamental Ironworking Supervisor Goal (LTG) Patient able to walk all usual distances outside and in community without an increase in pain and with least restrictive device. LTG Duration 04/18/19 activity tolerance Impairment Oswestry disability index score 62% Short Term Goal (STG) Decrease Oswestry score to no greater than 40% STG Duration 03/02/19 Care Home Goal (LTG) Decrease Oswestry score to no greater than 20% with patient able to perform all usual activities without an increase in pain, with good understanding of proper body mechanics for back protection. LTG Duration 04/18/19 Assessment Summary Assessment Patient presents with function -limiting pain in lumbar spine with signs and symptoms consistent with soft tissue strain related to poor body mechanics. Patient reported decreased pain today with use of ultrasound and moist heat and was instructed in gentle isometric and ROM ex to promote healing. I also instructed her in the safe use of a quad cane for improved gait stability and she demonstrated good understanding; her friend who was present for evalutation will obtain quad cane from [employer] today for patient . She would benefit from skilled PT to decrease her pain and promote tissue healing, instruct her in back protection for her usual activities, and help return her to her prior level of function. Patient agreeable to purchase new heating pad ( current one 30 yrs old) with automatic shut-off for safe use at home. Physical Therapy Plan Frequency and Duration Frequency of Treatment 2x/Week Duration of Treatment 12 wks Plan of Care Start Date 01/16/19 Plan of Care End Date 04/18/19 Therapeutic Interventions Therapeutic Interventions Aquatic Therapy Gait Training Home Exercise Program Manual Therapy Neuromuscular Re-education Patient/Caregiver Education Self-Care/Home Management Soft Tissue Mobilization Taping Therapeutic Activities Therapeutic Exercises Modalities Electric Stimulation Hot Packs Ultrasound Next Visit Focus/Plan Next Note Type Treatment Note Next Visit Plan Gentle ther ex as tolerated, body mechanics education, continue with modalities as indicated.
--- NOTE | 2019-01-16 11:16 | PT.OPPOC ---
Current Diagnoses Dorsalgia, unspecified (01/16/19) Difficulty in walking, not elsewhere classified (01/16/19) Provider Visit Care Team Role Provider Type Nicole Salinas DO Primary Care Provider Physician Specialty: Family Practice Address: [address] [place], [address] Email: [email or web address] Attending Provider Advanced Starch Cooker Specialty: Medical Address: [facility] [place] [address], [address] Email: Plan Of Care PT-OP-T Assessment and Plan Start: 01/16/19 11:16 Freq: Status: Active Protocol: Document 01/16/19 11:16 SAK (Rec: 01/17/19 15:02 SAK [id number]) Physical Therapy Assessment Rehab Potential Rehabilitation Potential Good Evaluation Complexity Number of Personal Factors/Comorbidities 3 or More Number of Body Systems Impaired 4 or More Clinical Presentation at Evaluation Unstable Impairments Impairments Activity Tolerance Gait Pain Soft Tissue Mobility Goals lumbar paraspinal muscle guarding and spasms Impairment lumbar paraspinal muscle guarding and spasms Short Term Goal (STG) Decrease muscle guarding and spasms 50% STG Duration 03/02/19 Prison Goal (LTG) Normalize muscle tone in lumbar paraspinals LTG Duration 04/18/19 pain Impairment pain 6/10 Short Term Goal (STG) Decrease pain to no greater than 3/10 STG Duration 03/02/19 Cruise Coordinator Goal (LTG) Decrease pain to no greater than 1-2/10 LTG Duration 04/18/19 gait dysfunction Impairment requires assistance with gait Short Term Goal (STG) Patient able to ambulate within her home without an increase in pain or need for assistive device STG Duration 03/02/19 Cruise Coordinator Goal (LTG) Patient able to walk all usual distances outside and in community without an increase in pain and with least restrictive device. LTG Duration 04/18/19 activity tolerance Impairment Oswestry disability index score 62% Short Term Goal (STG) Decrease Oswestry score to no greater than 40% STG Duration 03/02/19 Cruise Coordinator Goal (LTG) Decrease Oswestry score to no greater than 20% with patient able to perform all usual activities without an increase in pain, with good understanding of proper body mechanics for back protection. LTG Duration 04/18/19 Assessment Summary Assessment Patient presents with function -limiting pain in lumbar spine with signs and symptoms consistent with soft tissue strain related to poor body mechanics. Patient reported decreased pain today with use of ultrasound and moist heat and was instructed in gentle isometric and ROM ex to promote healing. I also instructed her in the safe use of a quad cane for improved gait stability and she demonstrated good understanding; her friend who was present for evalutation will obtain quad cane from [employer] today for patient . She would benefit from skilled PT to decrease her pain and promote tissue healing, instruct her in back protection for her usual activities, and help return her to her prior level of function. Patient agreeable to purchase new heating pad ( current one 30 yrs old) with automatic shut-off for safe use at home. Physical Therapy Plan Frequency and Duration Frequency of Treatment 2x/Week Duration of Treatment 12 wks Plan of Care Start Date 01/16/19 Plan of Care End Date 04/18/19 Therapeutic Interventions Therapeutic Interventions Aquatic Therapy Gait Training Home Exercise Program Manual Therapy Neuromuscular Re-education Patient/Caregiver Education Self-Care/Home Management Soft Tissue Mobilization Taping Therapeutic Activities Therapeutic Exercises Modalities Electric Stimulation Hot Packs Ultrasound Next Visit Focus/Plan Next Note Type Treatment Note Next Visit Plan Gentle ther ex as tolerated, body mechanics education, continue with modalities as indicated. Plan of Care Dates Plan of Care Start Date 01/16/19 Plan of Care End Date 04/18/19 Please Sign and Return: I have reviewed this Plan of Care and certify that the skilled therapy services above are required to meet the patient?s needs. Physician Signature Date Printed Name and Credentials Clinical Instructor Signature Printed Name and Credentials
== END 2019-02-09 14:35 | disposition home or self-care (01) ==
LOC: PHYS 10:33
PROVIDERS: PCP Family Medicine; Visit Provider Registered Nurse
DX: M54.9 Dorsalgia, unspecified (principal); R26.2 Difficulty in walking, not elsewhere classified
CPT/HCPCS: 97010; 97035; 97162

== ENCOUNTER → 2019-06-29 11:31 | Outpatient (CLI) | payer MEDICARE, OTHER, SELFPAY ==
[2018-10-09 15:56] VITALS: BMI 32.3
[2019-06-29 12:20] LABS: Add Manual Diff / Slide Review NO; Basophils Absolute Auto 100 /uL (0-100); Basophils Percent Auto 0.6 % (0-2); Eosinophils Absolute Auto 300 /uL (0-450); Eosinophils Percent Auto 3.2 % (2-4); Hemoglobin 12.7 g/dL (12.0-16.0); Lymphocytes Absolute Auto 2100 /uL (1100-4500); Lymphocytes Percent Auto 22.5 % (25-40); Mean Corpuscular HGB Conc 33.3 % (30-36); Mean Corpuscular Hemoglobin 28.5 PG (26-34); Mean Corpuscular Volume 85.6 fL (80-100); Monocytes Absolute Auto 500 /uL (0-900); Monocytes Percent Auto 5.7 % (3-14); Neutrophils Absolute Auto 6300 /uL (1500-7000); Platelet Count 244 X10^3/uL (150-400); Red Blood Cell Count 4.44 X10^6/uL (4.0-5.2); Red Cell Distribution Width 15.1 % (11.6-14.8); White Blood Cell Count 9.3 X10^3/uL (4.5-11.0)
[2019-06-29 12:42] LABS: Alanine Aminotransferase 22 IU/L (<35); Albumin 4.2 g/dL (3.5-5.0); Albumin Globulin Ratio 1.5 (1.0-2.8); Alkaline Phosphatase 97 U/L (38-126); Aspartate Aminotransferase 27 IU/L (14-36); BUN Creatinine Ratio 17.5 (6-22); Bilirubin Total 0.6 mg/dL (0.2-1.3); Blood Urea Nitrogen 14 mg/dL (7-17); Calcium 9.3 mg/dL (8.4-10.2); Carbon Dioxide 27 mmol/L (22-32); Chloride 108 mmol/L (98-107); Estimated Glomerular Filt Rate > 60.0 mL/min (>60); Globulin 2.8 g/dL (1.7-4.1); Glucose 116 mg/dL (80-110); HEMOLYSIS < 15 (0-50); Sodium 143 mmol/L (137-145)
[2019-06-29 13:23] LABS: TSH w/ Reflex to FT4 6.01 uIU/mL (0.47-4.68)
[2019-06-29 14:00] LABS: Free T4, Direct Thyroxine 1.01 ng/dL (0.78-2.19)
== END ==
PROVIDERS: PCP Family Medicine; Visit Provider Family Medicine
DX: E03.9 Hypothyroidism, unspecified (principal); I10 Essential (primary) hypertension
CPT/HCPCS: 36415; 80053; 84439; 84443; 85025

== ENCOUNTER 2019-07-01 04:43 | Observation (INO) | payer MEDICARE, OTHER, SELFPAY ==
[2018-10-09 15:56] VITALS: BMI 32.3
[2019-07-01] VITALS (13 sets, daily range): BP systolic 110–151; BP diastolic 61–75; PULSE 72–102; RESP 16–27; TEMP 36.9–37.1; O2SAT 96–98; BMI 30.9
--- NOTE | 2019-07-01 05:04 | DI.RAD.S_ITS ---
PROCEDURE: XR CHEST 1V INDICATIONS: chest pain TECHNIQUE: One view of the chest was acquired. COMPARISON: [facility], CR, XR CHEST 1V, 10/09/2018, 11:19. FINDINGS: Surgical changes and devices: None. Lungs and pleura: Lungs are clear. No pleural effusions or pneumothorax. Mediastinum: Mediastinal contours appear normal. Heart size is normal. Bones and chest wall: No suspicious bony lesions. Overlying soft tissues appear unremarkable. IMPRESSION: 1. No acute cardiopulmonary disease. Dictated by: Lalit Francois M.D. on 07/01/2019 at 8:42 Approved by: Lalit Francois M.D. on 07/01/2019 at 8:42
--- NOTE | 2019-07-01 05:04 | ED.CHESTPAIN ---
HPI - Chest Pain General Chief Complaint: Chest Pain Stated Complaint: left side pain Time Seen by Provider: 07/01/19 04:58 Source: patient Mode of arrival: Family Vehicle Limitations: no limitations History of Present Illness HPI narrative: This is a 83-year-old female comes to the emergency department with complaint of left chest pain, patient states radiated to the left arm and a little bit to her neck. She states that she felt a little short of breath. She felt like her bra was way too tight, she states she got sweaty. At its worst it was an 8, it's now about a 2. She did feel little lightheaded but not like she was going to pass out. She denies any nausea, no vomiting. No issues with bowel movements or urination. No radiation to the abdomen. Patient states she did not take an aspirin. She states she has a history of hypertension and has been quite elevated in the past is actually much better here in the emergency room than what it normally is. She denies any dyslipidemia. She states she does not take any blood thinners. She states that she takes thyroid medication, potassium chloride and Lasix. She states that she has had increasing swelling in her lower extremities although it's not rapidly worsening recently. It's also been a little bit red on both legs. She states this is been like this chronically. She denies any fevers. She states she has had a thyroidectomy, cholecystectomy and had a squamous cell removed from her face. No tobacco, occasional alcohol, no illicit. Related Data Home Medications Medication Instructions Recorded Confirmed nitroglycerin 0.4 mg sublingual 0.4 mg SL Q5M PRN 11/22/17 06/29/19 tablet Women's One Daily 1 tab PO DAILY 12/09/17 06/29/19 peg 400-propylene glycol 1 drp OPHTHALMIC (EYE) PRN PRN 12/09/17 06/29/19 Neuoropathy Pain Med 1 dose PO PRN PRN 10/09/18 06/29/19 PreserVision AREDS 1 cap PO BID 10/09/18 06/29/19 Previous Rx's Medication Instructions Recorded lactobacillus combination no.8 3 3,000 mmu cells PO DAILY #90 cap 03/13/18 billion cell capsule amlodipine 10 mg tablet 10 mg PO DAILY #90 tab 09/12/18 [address]ing Permit See Rx Instructions .ROUTE 09/25/18 .COMPLEX #1 each pramipexole 0.5 mg tablet 0.5 mg PO BID #180 tab 02/07/19 lansoprazole 30 mg capsule,delayed 30 mg PO DAILY #90 cap 06/25/19 release furosemide 20 mg tablet 40 mg PO QPM #60 tab 06/29/19 levothyroxine 100 mcg tablet 100 mcg PO DAILY #90 tab 06/29/19 metoprolol succinate 50 mg 50 mg PO DAILY #90 tab 06/29/19 tablet,extended release 24 hr potassium chloride 10 mEq 10 meq PO DAILY #90 cap 06/29/19 capsule,extended release Allergies Allergy/AdvReac Type Severity Reaction Status Date / Time amitriptyline [AMITRIPTYLINE] Allergy Unknown Verified 01/15/19 14:43 gabapentin [GABAPENTIN] Allergy Unknown Verified 01/15/19 14:43 ANESTHESIA DRUG AdvReac Mild UNSURE FOR Uncoded 01/15/19 14:43 THE NAME 05/31/14 Review of Systems Review of Systems ROS Unobtainable: All systems reviewed & are unremarkable except as noted in HPI and below 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) Benign familial tremor (Chronic) Bipolar I disorder (Chronic 05/22/13) Depression (Acute) Diverticulosis of colon (Chronic 05/22/13) Essential hypertension (Chronic 05/22/13) Facial asymmetry (Chronic) Gastroesophageal reflux disease (Chronic 05/22/13) Hyperlipidemia (Chronic 05/22/13) Mitral regurgitation (Chronic) Paroxysmal atrial fibrillation (Chronic) Postoperative hypothyroidism (Chronic 05/22/13) Pulmonary nodule (Chronic) Restless legs syndrome (Chronic 05/22/13) Schatzki's ring (Resolved) Squamous cell carcinoma of skin of face (Resolved 05/22/13) Tremor (Chronic 05/22/13) Vitamin D deficiency (Chronic) Surgical History History of esophagogastroduodenoscopy (EGD) (~05/2006) History of thyroidectomy (~03/2005) Status post cholecystectomy (~12/2004) Status post colposcopy (~12/2008) Social History marital status: household members: spouse lives independently: Yes occupational status: other (retired) Smoking Status: Never smoker alcohol intake: never substance use type: does not use Smoking Status: Never smoker alcohol intake frequency: a few times a month Substance Use Type: does not use Exam Narrative Exam Narrative: GENERAL: Alert and oriented x three, well-nourished female in mild distress. HEENT: Head normocephalic, atraumatic, EOMI, pupils reactive, face symmetric, moist mucous membranes NECK: Supple, full range of motion CARDIOVASCULAR: Regular rate and rhythm without murmurs, rubs or gallops. No rash or skin changes. RESPIRATORY: Breath sounds equal bilaterally, no wheezes rales or rhonchi. ABDOMEN: Soft, nontender. Normoactive bowel sounds all 4 quadrants. No guarding or rebound, rigidity, no mass : No CVA tenderness EXTREMITIES: Normal range of motion, no clubbing or edema. Neurovascularly intact NEUROLOGICAL: Cranial nerves II through XII grossly intact. Moving all extremities SKIN: Warm, dry, no petechiae, no rashes or lesions. Initial Vital Signs Initial Vital Signs: Vital Signs Temperature 98.4 F 07/01/19 05:00 Pulse Rate 102 H 07/01/19 05:00 Respiratory Rate 19 07/01/19 05:00 Blood Pressure 144/70 H 07/01/19 05:00 Pulse Oximetry 97 07/01/19 05:00 Course Orders Ordered: ED Orders 07/01/19 04:51 EKG-12 Lead Routine 07/01/19 04:56 B Type Natriuretic Peptide Stat Complete Blood Count AUTO DIFF Stat Comprehensive Metabolic Panel Stat Lipase Stat Partial Thromboplastin Time Stat Prothrombin Time INR Stat Troponin & CK Cardiac Panel Stat 07/01/19 05:04 XR chest 1V Stat Sodium Chloride (Normal Saline 0.9%) 1,000 mls @ 84 mls/hr IV CONT NAGI Nitroglycerin (Nitrostat) 0.4 mg SL [id number] PRN PRN Reason: Chest Pain Last Admin: 07/01/19 05:52 Dose: 0.4 mg Documented by: NA Discontinued Medications Aspirin (Aspirin Chew) 324 mg PO NOW ONE Stop: 07/01/19 05:19 Last Admin: 07/01/19 05:51 Dose: 324 mg Documented by: NA Nitroglycerin (Nitro-Bid) 0.5 inch TOP NOW ONE Stop: 07/01/19 06:01 Last Admin: 07/01/19 06:06 Dose: 0.5 inch Documented by: NA Vital Signs Vital signs: Vital Signs - 8 hr 07/01/19 05:00 07/01/19 05:52 07/01/19 06:01 Temperature 98.4 F Pulse Rate 102 H 78 92 H Respiratory Rate 19 Blood Pressure 144/70 H 131/67 Blood Pressure [Left Arm] 110/68 Pulse Oximetry 97 07/01/19 06:06 Temperature Pulse Rate 74 Respiratory Rate Blood Pressure 110/68 Blood Pressure [Left Arm] Pulse Oximetry MDM - Chest Pain Lab Data Attestation: I reviewed the patient's lab results. Result diagrams: 07/01/19 04:56 07/01/19 04:56 Labs: Lab Results 07/01/19 07/01/19 07/01/19 Range/Units 04:56 04:56 04:56 WBC 9.3 (4.5-11.0) X10^3/uL RBC 4.29 (4.0-5.2) X10^6/uL Hgb 12.4 (12.0-16.0) g/dL Hct 36.7 (36-46) % MCV 85.6 (80-100) fL MCH 28.8 (26-34) PG MCHC 33.7 (30-36) % RDW 15.1 H (11.6-14.8) % Plt Count 247 (150-400) X10^3/uL Neut % (Auto) 59.4 (50-75) % Lymph % (Auto) 28.6 (25-40) % [place] % (Auto) 7.4 (3-14) % Eos % (Auto) 3.8 (2-4) % Baso % (Auto) 0.8 (0-2) % Neut # (Auto) 5500 (2350-3931) /uL Lymph # (Auto) 2700 (3335-7565) /uL [place] # (Auto) 700 (0-900) /uL Eos # (Auto) 400 (0-450) /uL Baso # (Auto) 100 (0-100) /uL PT 10.2 (10.1-12.7) SECONDS INR 0.9 (0.9-1.3) APTT 28 D (26.4-36.2) SECONDS Sodium 142 (137-145) mmol/L Potassium 3.5 (3.4-5.1) mmol/L Chloride 110 H (98-107) mmol/L Carbon Dioxide 24 (22-32) mmol/L BUN 18 H (7-17) mg/dL Creatinine 0.80 (0.52-1.04) mg/dL Estimated GFR > 60.0 (>60) mL/min BUN/Creatinine Ratio 22.5 H (6-22) Glucose 106 (80-110) mg/dL Calcium 9.4 (8.4-10.2) mg/dL Total Bilirubin 0.5 (0.2-1.3) mg/dL AST 27 (14-36) IU/L ALT 21 (<35) IU/L Alkaline Phosphatase 93 (38-126) U/L Total Creatine Kinase 56 (30-135) U/L CK-MB (CK-2) TNP CK-MB (CK-2) Rel Index TNP Troponin I < 0.012 (0.01-0.034) ng/mL Total Protein 6.9 (6.3-8.2) g/dL Albumin 4.1 (3.5-5.0) g/dL Globulin 2.8 (1.7-4.1) g/dL Albumin/Globulin Ratio 1.5 (1.0-2.8) Lipase 181 (23-300) U/L ECG Data Attestation: I personally reviewed and interpreted this ECG as follows: Prior ECG tracings: available for review Interpretation: Sinus rhythm with marked sinus arrhythmia. Rate of 98 VT 157 QRS of 102 and QTC of 393. Patient has been ST depression in 2 possibly 3 and AVF. Also possibly V5 V6. No elevation is appreciated. [facility] Narrative Medical decision making narrative: Patient has symptoms that are concerning for cardiac nature. Patient does appear to have a little bit of depression although she has quite a bit artifact. Prior EKGs do not show any. Patient's initial troponin is negative, with chloride of 110, BUN 18, normal renal function otherwise normal electrolytes. Chest x-ray is negative. Patient received aspirin and nitro sublingual, patient had some improvement. Nitro place was paced. Patient states she feels much better. Patient's primary care is Dr. Salinas, I spoke with Dr. Lunsford. Discussed patient has a history suspicious for cardiac cause. EKG findings, chest x-ray and lab work. BNP was not initially ordered and was added on. Dr. Lunsford accepts for chest pain with observation with tele. She will see patient this morning. Discharge Plan Departure Patient Disposition: Admitted as Observation Clinical Impression: Chest pain Referrals: Nicole Salinas DO [Primary Care Provider] -
[2019-07-01 05:12] LABS: INR 0.9 (0.9-1.3); Prothrombin Time 10.2 SECONDS (10.1-12.7)
[2019-07-01 05:13] LABS: Add Manual Diff / Slide Review NO; Basophils Absolute Auto 100 /uL (0-100); Basophils Percent Auto 0.8 % (0-2); Eosinophils Absolute Auto 400 /uL (0-450); Eosinophils Percent Auto 3.8 % (2-4); Hematocrit 36.7 % (36-46); Hemoglobin 12.4 g/dL (12.0-16.0); Lymphocytes Absolute Auto 2700 /uL (1100-4500); Lymphocytes Percent Auto 28.6 % (25-40); Mean Corpuscular HGB Conc 33.7 % (30-36); Mean Corpuscular Hemoglobin 28.8 PG (26-34); Mean Corpuscular Volume 85.6 fL (80-100); Monocytes Absolute Auto 700 /uL (0-900); Monocytes Percent Auto 7.4 % (3-14); Neutrophils Absolute Auto 5500 /uL (1500-7000); Neutrophils Percent Auto 59.4 % (50-75); Platelet Count 247 X10^3/uL (150-400); Red Blood Cell Count 4.29 X10^6/uL (4.0-5.2); Red Cell Distribution Width 15.1 % (11.6-14.8); White Blood Cell Count 9.3 X10^3/uL (4.5-11.0)
[2019-07-01 05:15] LABS: PTT Partial Thromboplastin Tim 28 SECONDS (26.4-36.2)
[2019-07-01 05:19] LABS: Alanine Aminotransferase 21 IU/L (<35); Albumin 4.1 g/dL (3.5-5.0); Albumin Globulin Ratio 1.5 (1.0-2.8); Alkaline Phosphatase 93 U/L (38-126); Aspartate Aminotransferase 27 IU/L (14-36); BUN Creatinine Ratio 22.5 (6-22); Bilirubin Total 0.5 mg/dL (0.2-1.3); Blood Urea Nitrogen 18 mg/dL (7-17); Calcium 9.4 mg/dL (8.4-10.2); Carbon Dioxide 24 mmol/L (22-32); Chloride 110 mmol/L (98-107); Creatine Kinase 56 U/L (30-135); Estimated Glomerular Filt Rate > 60.0 mL/min (>60); Globulin 2.8 g/dL (1.7-4.1); Glucose 106 mg/dL (80-110); HEMOLYSIS < 15 (0-50); Lipase 181 U/L (23-300); Potassium 3.5 mmol/L (3.4-5.1); Sodium 142 mmol/L (137-145); Total Protein 6.9 g/dL (6.3-8.2)
[2019-07-01 05:30] LABS: Troponin I < 0.012 ng/mL (0.01-0.034)
[2019-07-01] MEDS: ASPIRIN 81 MG CHEW TAB 324 MG PO (05:51)
[2019-07-01] MEDS: NITROGLYCERIN 0.4 MG SL TAB SL (05:52)
--- NOTE | 2019-07-01 06:02 | PC.NURSE ---
post 1 nitro administration, provider notified of patient pressure level decreasing from 5/10 to 2/10
[2019-07-01] MEDS: NITROGLYCERIN OINT 1 INCH/GM OINT...G. 0.5 INCH TOP (06:06)
[2019-07-01 07:18] LABS: B Type Natriuretic Peptide < 100 (<100)
--- NOTE | 2019-07-01 07:38 | PC.NURSE ---
denies chest discomfort at this time, states, headache feels better as well.
--- NOTE | 2019-07-01 10:03 | P.HP_ITS ---
History of Present Illness History of Present Illness Date Patient Seen: 07/01/19 Time Patient Seen: 10:04 Chief complaint: left side pain Narrative: Patient is an 83 yo female who presented to ED last night after persistent chest pain. She is under considerable stress at home with her step- son and feels this has contributed. She had been out of her furosemide for the past month and just restarted it yesterday with 40 mg. The chest pain woke her up. It radiated up her neck and down her arm. She drove herself here and thought she would sit in the waiting room and see if it would go away. She was convinced by nursing to be evaluated. She has a routine that she does with elevating her legs to help control the swelling. She has not had shortness of breath. 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) Benign familial tremor (Chronic) Bipolar I disorder (Chronic 05/22/13) Depression (Acute) Diverticulosis of colon (Chronic 05/22/13) Essential hypertension (Chronic 05/22/13) Facial asymmetry (Chronic) Gastroesophageal reflux disease (Chronic 05/22/13) Hyperlipidemia (Chronic 05/22/13) Mitral regurgitation (Chronic) Paroxysmal atrial fibrillation (Chronic) Postoperative hypothyroidism (Chronic 05/22/13) Pulmonary nodule (Chronic) Restless legs syndrome (Chronic 05/22/13) Schatzki's ring (Resolved) Squamous cell carcinoma of skin of face (Resolved 05/22/13) Tremor (Chronic 05/22/13) Vitamin D deficiency (Chronic) Surgical History History of esophagogastroduodenoscopy (EGD) (~05/2006) History of thyroidectomy (~03/2005) Status post cholecystectomy (~12/2004) Status post colposcopy (~12/2008) Family & Social History Social History: household members spouse Prior Living Arrangements House lives independently Yes Safety & Behavioral: Feels Safe in Current No Environment Been Physically Hurt or Yes Threatened By a Person Suicidal Ideation Description Vague Suicide Plan Description No Plan Tobacco & Substance use: Smoking Status Never smoker alcohol intake never alcohol intake frequency a few times a month Substance Use Type does not use Meds Home Medications and Allergies Home Medications Medication Instructions Recorded Confirmed Type nitroglycerin 0.4 mg sublingual 0.4 mg SL Q5M PRN 11/22/17 06/29/19 History tablet Women's One Daily 1 tab PO DAILY 12/09/17 07/01/19 History peg 400-propylene glycol 1 drp OPHTHALMIC (EYE) PRN PRN 12/09/17 06/29/19 History lactobacillus combination no.8 3 3,000 mmu cells PO DAILY #90 cap 03/13/18 06/29/19 Rx billion cell capsule amlodipine 10 mg tablet 10 mg PO DAILY #90 tab 09/12/18 07/01/19 Rx Disabled Parking Permit See Rx Instructions .ROUTE 09/25/18 07/01/19 Rx .COMPLEX #1 each Neuoropathy Pain Med 1 dose PO PRN PRN 10/09/18 06/29/19 History PreserVision AREDS 1 cap PO BID 10/09/18 06/29/19 History pramipexole 0.5 mg tablet 0.5 mg PO BID #180 tab 02/07/19 07/01/19 Rx lansoprazole 30 mg capsule,delayed 30 mg PO DAILY #90 cap 06/25/19 06/29/19 Rx release furosemide 20 mg tablet 40 mg PO QPM #60 tab 06/29/19 07/01/19 Rx levothyroxine 100 mcg tablet 100 mcg PO DAILY #90 tab 06/29/19 07/01/19 Rx metoprolol succinate 50 mg 50 mg PO DAILY #90 tab 06/29/19 07/01/19 Rx tablet,extended release 24 hr potassium chloride 10 mEq 10 meq PO DAILY #90 cap 06/29/19 06/29/19 Rx capsule,extended release Allergies Allergy/AdvReac Type Severity Reaction Status Date / Time amitriptyline [AMITRIPTYLINE] Allergy Unknown Verified 01/15/19 14:43 gabapentin [GABAPENTIN] Allergy Unknown Verified 01/15/19 14:43 ANESTHESIA DRUG AdvReac Mild UNSURE FOR Uncoded 01/15/19 14:43 THE NAME 05/31/14 Review of Systems Review of Systems Narrative: A complete review of systems was negative except for the elements described in the HPI. Exam Vital Signs (past 8 hours): - 07/01/19 05:00 07/01/19 05:52 12/15/19 06:01 Temperature 98.4 F Pulse Rate 102 H 78 92 H Respiratory Rate 19 Blood Pressure 144/70 H 131/67 Blood Pressure [Left Arm] 110/68 Pulse Oximetry 97 07/01/19 06:06 07/01/19 07:40 07/01/19 09:00 Temperature 98.6 F Pulse Rate 74 88 90 Respiratory Rate 27 H 19 Blood Pressure 110/68 151/75 H Blood Pressure [Left Arm] 119/66 Pulse Oximetry 97 97 Oxygen Delivery Method Room Air Oxygen Flow Rate 0 Narrative Exam Narrative: General: Well-developed, well-nourished, female, no acute distress. Heart: Regular rate and rhythm, no murmurs appreciated Lungs: Clear to auscultation bilaterally, no wheezes, rales or rhonchi Abd: BS+, soft, nontender, nondistended, no rebound, no guarding Extremities: Warm and well perfused, bilateral 1+ pitting edema with skin bubb ling, redness and warmth Objective Labs Result Diagrams: 07/01/19 04:56 07/01/19 04:56 Labs: Laboratory Results - last 24 hr 07/01/19 07/01/19 07/01/19 04:56 04:56 04:56 WBC 9.3 RBC 4.29 Hgb 12.4 Hct 36.7 MCV 85.6 MCH 28.8 MCHC 33.7 RDW 15.1 H Plt Count 247 Neut % (Auto) 59.4 Lymph % (Auto) 28.6 [place] % (Auto) 7.4 Eos % (Auto) 3.8 Baso % (Auto) 0.8 Neut # (Auto) 5500 Lymph # (Auto) 2700 [place] # (Auto) 700 Eos # (Auto) 400 Baso # (Auto) 100 PT 10.2 INR 0.9 APTT 28 D Sodium 142 Potassium 3.5 Chloride 110 H Carbon Dioxide 24 BUN 18 H Creatinine 0.80 Estimated GFR > 60.0 BUN/Creatinine Ratio 22.5 H Glucose 106 Calcium 9.4 Total Bilirubin 0.5 AST 27 ALT 21 Alkaline Phosphatase 93 Total Creatine Kinase 56 CK-MB (CK-2) TNP CK-MB (CK-2) Rel Index TNP Troponin I < 0.012 B-Natriuretic Peptide Total Protein 6.9 Albumin 4.1 Globulin 2.8 Albumin/Globulin Ratio 1.5 Lipase 181 07/01/19 04:56 WBC RBC Hgb Hct MCV MCH MCHC RDW Plt Count Neut % (Auto) Lymph % (Auto) [place] % (Auto) Eos % (Auto) Baso % (Auto) Neut # (Auto) Lymph # (Auto) [place] # (Auto) Eos # (Auto) Baso # (Auto) PT INR APTT Sodium Potassium Chloride Carbon Dioxide BUN Creatinine Estimated GFR BUN/Creatinine Ratio Glucose Calcium Total Bilirubin AST ALT Alkaline Phosphatase Total Creatine Kinase CK-MB (CK-2) CK-MB (CK-2) Rel Index Troponin I B-Natriuretic Peptide < 100 Total Protein Albumin Globulin Albumin/Globulin Ratio Lipase Assessment & Plan Assessment & Plan narrative: 83 yo female with hypertension, hyperlipidemia with symptoms concerning for ACS. 1. Chest pain rule out NM. Troponin negative x2. Chest pain has resolved. echo in september 2018 with mild relaxation abnormality. - phototypesetting equipment monitor - consider stress tomorrow 2. Lower extremity edema. cellulitis? patient seems to think legs are at baseline. - patient had been without furosemide for about a month until yesterday, will continue 3. Hypertension. - continue amlodipine, metoprolol - monitor 4. family stress - consult to social work 5. reflux - protonix while in house 6. restless legs - continue mirapex DVT prophylaxis: SCDs for now Code status: full code Patient meets observation status while we determine her chest pain etiology.
[2019-07-01] MEDS: AMLODIPINE 5 MG TABLET 10 MG PO (10:13)
[2019-07-01] MEDS: METOPROLOL ER 50 MG TABLET PO (10:13)
[2019-07-01] MEDS: PRAMIPEXOLE 0.25 MG TABLET 0.5 MG PO ×2 (10:39→20:07)
[2019-07-01] MEDS: LEVOTHYROXINE 100 MCG TABLET PO (11:00)
[2019-07-01 11:42] LABS: Cholesterol 231 mg/dL (140-199); HDL Cholesterol 46 mg/dL (40-60); LDL Cholesterol Calculated 156 mg/dL (<100); Triglycerides 143 mg/dL (35-150)
[2019-07-01 11:54] LABS: Troponin I < 0.012 ng/mL (0.01-0.034)
[2019-07-01] MEDS: PANTOPRAZOLE 20 MG TABLET PO (13:55)
[2019-07-01] MEDS: FUROSEMIDE 40 MG/4 ML VIAL IV (13:55)
[2019-07-01 18:56] LABS: Troponin I < 0.012 ng/mL (0.01-0.034)
[2019-07-01] MEDS: SODIUM CHLORIDE 0.9% FLUSH 10 ML IV (20:07)
[2019-07-01] MEDS: SENNOSIDES 8.6 MG TABLET 17.2 MG PO (20:07)
[2019-07-02] VITALS (13 sets, daily range): BP systolic 118–136; BP diastolic 49–73; PULSE 69–83; RESP 16–20; TEMP 36.5–36.8; O2SAT 94–97
[2019-07-02] MEDS: ACETAMINOPHEN 325 MG TABLET 650 MG PO (02:00)
[2019-07-02] MEDS: LEVOTHYROXINE 100 MCG TABLET PO (06:33)
[2019-07-02] MEDS: PANTOPRAZOLE 20 MG TABLET PO (06:33)
[2019-07-02] MEDS: PRAMIPEXOLE 0.25 MG TABLET 0.5 MG PO ×2 (07:28→20:07)
[2019-07-02] MEDS: SODIUM CHLORIDE 0.9% FLUSH 10 ML IV ×3 (07:29→20:07)
[2019-07-02] MEDS: ASPIRIN EC 81 MG TABLET PO (07:29)
--- NOTE | 2019-07-02 08:21 | PM.PN.1 ---
Subjective Subjective Date Patient Seen: 07/02/19 Time Patient Seen: 07:22 Interval history: Patient complains of pain in her legs this morning but states the swelling is better than it was on admission. She has not had recurrence of her chest pain. She has seen Dr. Reed with Cardiology in the past for chest pain and intermittent AFib. She was told she needed to be on a statin and a blood thinner and she declined both. Did not have a stress test at that time though she did have a normal 1 about 6 years ago. Exam Vital Signs (past 8 hours): - 07/02/19 00:30 07/02/19 01:16 07/02/19 05:00 Temperature 98.3 F 97.9 F Pulse Rate 76 69 Respiratory Rate 20 16 Blood Pressure 128/64 123/67 Pulse Oximetry 95 95 97 07/02/19 07:30 07/02/19 07:39 Temperature 97.7 F Pulse Rate 76 Respiratory Rate 18 Blood Pressure 133/68 Pulse Oximetry 96 94 Oxygen Delivery Method Room Air Oxygen Flow Rate 0 Narrative Exam Narrative: General: Awake and alert, no acute distress. HEENT: NCAT, EOMI, moist oral mucosa CV: Regular rate and rhythm, no murmurs, rubs or gallops Lungs: CTAB, no wheezes, rales, or rhonchi Extremities: Warm, 1+ edema bilaterally, chronic erythema of both lower extremities Objective Labs Result Diagrams: 07/01/19 04:56 07/01/19 04:56 Labs: Laboratory Results - last 24 hr 07/01/19 07/01/19 07/01/19 11:21 11:21 18:17 Troponin I < 0.012 < 0.012 Triglycerides 143 Cholesterol 231 H LDL Cholesterol, Calc 156 H HDL Cholesterol 46 Assessment & Plan Assessment and plan (1) Chest pain: Current visit: Yes Status: Acute (2) (HFpEF) heart failure with preserved ejection fraction: Current visit: Yes Status: Acute (3) Essential hypertension: Current visit: No Status: Chronic (4) Hyperlipidemia: Current visit: No Status: Chronic (5) Paroxysmal A-fib: Current visit: Yes Status: Acute Assessment & Plan narrative: 83-year-old female with HEFpEF (echo 09/2018), hypertension, hyperlipidemia, paroxysmal atrial fibrillation, chronic lower extremity edema and depression admitted with chest pain concerning for ACS. 1. Chest pain rule out NH. Troponin negative x2. Chest pain has resolved. - Myocardial perfusion scan today - Patient has declined statins in the past and continues to do so despite my explanation of her risk factors for heart disease. She will think about it after the stress test. 2. Lower extremity edema secondary to diastolic heart failure, better than baseline today - Continue furosemide, she had been off of it for quite some time prior to admission 3. Hypertension. - Continue amlodipine, metoprolol 4. Paroxysmal Atrial fibrillation, not present this admission - Patient has declined anticoagulation in the past, discussed again today and she continues to decline 5. Family stress - Consult to social work, getting set up with counseling as an outpatient 6. Reflux - Protonix while in house 7. Restless legs - Continue mirapex DVT prophylaxis: SCDs Code status: Full Code Disposition: Pending results of stress test today. If normal she can likely discharge later today.
[2019-07-02] MEDS: METOPROLOL ER 50 MG TABLET PO (14:13)
[2019-07-02] MEDS: AMLODIPINE 5 MG TABLET 10 MG PO (14:13)
[2019-07-02] MEDS: FUROSEMIDE 40 MG/4 ML VIAL IV (14:13)
--- NOTE | 2019-07-02 17:44 | DI.NM.S_ITS ---
DATE OF SERVICE: 07/02/2019 PROCEDURE: Pharmacological perfusion study. INDICATIONS: Chest pain with underlying hypertension, hyperlipidemia. CARDIAC STRESS: Patient underwent IV Lexiscan perfusion study under the supervision of an attending staff using standard IV Lexiscan per protocol. Baseline EKG revealed sinus rhythm with some nonspecific EKG changes which got more pronounced during stress. There was some PACs. No significant ventricular arrhythmias. Patient felt shortness of breath which got better during recovery. No anginal symptoms. RAW DATA: There is increased subdiaphragmatic activity as well as breast shadow was seen. GATED STUDY: Stress LV ejection fraction 69% without any obvious wall motion abnormalities. Lung/heart ratio is 0.41, which is within normal limits. MYOCARDIAL PERFUSION SCAN: Stress supine and stress prone images were compared to each other. Stress supine images revealed small-sized mildly decreased perfusion of distal anterior wall which got resolved during prone images. Prone images, develop minimally decreased perfusion of inferior apex which was not seen during stress supine images. CONCLUSION: I will call this study a normal myocardial perfusion study with evidence of breast tissue attenuation artifact, especially shifting breast tissue attenuation artifact as stated above. Patient had perfusion study in 06/2014. At that time also she had similar perfusion defect. Left ventricular (LV) function is preserved. Overall, this is a low-risk myocardial perfusion study. Lolis Strickland - JOSE/terrence/ doc#: [id number]/job#: [id number] dd: 07/02/2019 17:11:00 dt: 07/02/2019 17:36:00 DICTATING MD/COPIES TO: Hernan Hong MD COPIES MNE: JASPER
[2019-07-02] MEDS: SENNOSIDES 8.6 MG TABLET 17.2 MG PO (20:07)
--- NOTE | 2019-07-02 20:29 | CM.DANOTE ---
DCP Assessment: EMR reviewed: Patient is a 83 yr old female who came into the ED with chest pain 07/01/2019. Patients PCP is Dr. Salinas. CM/RN met with patient at the bedside and explained role. patient was alert and oriented x3 at time of CM/RN visit. Patient currently lives with her Perfecto Lockwood ([place]) and his son is currently staying with them who is also named Perfecto. Patient doesn't want her medical information discussed with her step son only her daughter Nikki Casillas [phone] who is patients preferred emergency contact. Patient stated she has been for 6 years and doesn't want to bother her with her health issues. DME: patient owns a cane and shower bench at home and lives in a single level home. Patient states she is I at [place] with all ADL's and drives her own vehicle. CM/RN asked if patient felt safe at home and patient stated she does feel safe she just doesn't like her step son because of the problems he brings. Patient did not want to discuss her step son and stated that she was feeling better now. I: Medicare 2nd: [employer] Plan: Patient would like to D/C home with her when medically stable. No identified D/C needs noted at this time. BUS DRIVER/MONITOR will follow up with patient to determine if any new D/C needs are identified. Gillian Villalba RN Discharge Planning/Care Management CM Discharge Assessment Start: 07/02/19 20:27 Freq: Status: Active Protocol: Document 07/02/19 20:28 HS (Rec: 07/02/19 20:29 HS [id number]) Discharge Planning Assessment Assigned Play Therapist Gillian Villalba RN DPOA/Assigned Designee Name Nikki Casillas (daughter) Contact Information [phone] Advance Directives? No Advance Directives on File No History Provided By Patient,Medical Record Has Patient been admitted in last 30 No days? Prior Living Arrangements House Household Members spouse Comment Paitent lives with her of 6 years Type of transporation used prior to Drives own vehicle admit Independent with ADL's Yes Is patient alert and oriented? Yes Caregiver for Another No DME Already Rented / Owned Bath Bench,Cane Discharge Plan Home Referrals Initiated None needed Whiteboard Updated in Patient Room with Yes name and ext. # of Play Therapist Review Status In Process Next Review Type Continued Stay Review
--- NOTE | 2019-07-02 23:33 | PC.NURSE ---
Addendum entered by Archana Whitehead R.N. 07/03/19 05:00: Up in chair for several hours during the night. Now back in bed and states pain in feet is 7/10; medicated with Tylenol. Original Note: Patient is alert and oriented. Breath sounds diminished but CTA with RA sat of 97%. HRR; on telemetry and last reading at 1999 was SR. Denies nausea. BT present and abdomen is soft. Denies dysuria or frequency but has urgency related to use of diuretics. Able to turn self in bed. Uses walker and 1 assist when out of bed. Has 2/10 pain in bilateral LE which she states is chronic and tolerable. States she also has bilateral LE neuropathy. Bilateral LE are red, warm and edematous with blister like appearance to skin; edema is greater in right LE. Refusing to wear SCD's as too painful on legs; discussed risks of developing DVT but continues to decline so reminded to ankle wave when awake. Fall risk score is high and bed alarm is activated. Is aware she will be NPO after 0600 for NM stress test in a.m.
[2019-07-03 03:35] VITALS: BP 127/67; PULSE 65; RESP 16; TEMP 36.8; O2SAT 97
[2019-07-03] MEDS: ACETAMINOPHEN 325 MG TABLET 650 MG PO (04:55)
[2019-07-03] MEDS: LEVOTHYROXINE 100 MCG TABLET PO (04:56)
[2019-07-03] MEDS: PANTOPRAZOLE 20 MG TABLET PO (04:56)
[2019-07-03 07:38] VITALS: BP 114/57; PULSE 66; RESP 19; TEMP 36.9; O2SAT 96
--- NOTE | 2019-07-03 07:47 | P.DS_ITS ---
History of Present Illness History of Present Illness Date Patient Seen: 07/03/19 Time Patient Seen: 07:47 Chief complaint: Chest pain Narrative: From Dr. Jonn Donovan&Cheryle: Patient is an 83 yo female who presented to ED persistent chest pain. She is under considerable stress at home with her step-son and feels this has contributed. She had been out of her furosemide for the past month and just restarted it yesterday with 40 mg. The chest pain woke her up. It radiated up her neck and down her arm. She drove herself here and thought she would sit in the waiting room and see if it would go away. She was convinced by nursing to be evaluated. She has a routine that she does with elevating her legs to help control the swelling. She has not had shortness of breath. Discharge Providers Provider Date of admission: 07/01/19 07:04 Discharge Date: 07/03/19 Primary care physician: Nicole Salinas DO Consults: 07/01/19 10:59 Consult to ANTENNA RIGGER - Sweep Molder Routine Comment: ANTENNA RIGGER Consult: APS/CPS Crisis Referral Discharge provider: Nicole Salinas DO Summary Hospital Course Discharge Diagnosis: Chest pain Hypertension Hyperlipidemia HFpEF Chronic lower extremity edema Hypothyroidism Depression Hospital Course: Patient was admitted for ACS rule out. EKG reassuring. Chest x-ray was normal. Troponin negative x2. She was monitored on telemetry without arrhythmias. She underwent a pharmacological stress test which was read as normal and considered low risk. She did not have recurrence of her chest pain in the hospital. Blood pressure well controlled on her usual medications. Edema improved with diuresis. She was reminded to elevate her legs often and take her furosemide as prescribed. She does have a history of paroxysmal atrial fibrillation however declines anticoagulation. We also discussed her hyperlipid emia again and she continues to decline statins stating she does not think they are necessary since her stress test was normal. She was most concerned about addressing her depression and social issues. Her stepson will be moving out which should relieve a considerable amount of stress in her life. She has already been set up with CAYETANO Madden, for counseling in the clinic. She will follow up in clinic in just over a week. Patient advised to return to the ER should she have recurrence of severe chest pain despite the normal myocardial perfusion scan. Status at Discharge Functional status at discharge: independent ambulation Overall status at discharge: patient is back to baseline Time Spent with Patient Time spent: Less than 30 minutes Exam Vital Signs (past 8 hours): - 07/03/19 03:35 07/03/19 07:38 Temperature 98.3 F 98.5 F Pulse Rate 65 66 Respiratory Rate 16 19 Blood Pressure 127/67 114/57 L Pulse Oximetry 97 96 Oxygen Delivery Method Room Air Oxygen Flow Rate 0 Narrative Exam Narrative: General: Awake and alert, sitting up in the chair wrapped in a blanket HEENT: NCAT, EOMI, moist oral mucosa CV: Regular rate and rhythm, no murmurs, rubs or gallops Lungs: CTAB, no wheezes, rales, or rhonchi Abdomen: Bowel tones active. Soft, nontender. Extremities: Warm, 1+ edema bilaterally, chronic erythema of both lower extremities Objective Labs Result Diagrams: 07/01/19 04:56 07/01/19 04:56 Discharge Plan Discharge Plan Discharge Problem: Chest pain Patient Disposition: Home Discharge orders & Medications Prescriptions: Continued furosemide 20 mg tablet 40 mg PO QPM Qty: 60 RF: 2 levothyroxine 100 mcg tablet 100 mcg PO DAILY Qty: 90 RF: 3 metoprolol succinate 50 mg tablet extended release 24 hr 50 mg PO DAILY Qty: 90 RF: 1 potassium chloride 10 mEq capsule, extended release 10 meq PO DAILY Qty: 90 RF: 1 amlodipine 10 mg tablet 10 mg PO DAILY Qty: 90 RF: 1 pramipexole 0.5 mg tablet 0.5 mg PO BID Qty: 180 RF: 1 lansoprazole 30 mg capsule,delayed release(DR/EC) 30 mg PO DAILY Qty: 90 RF: 3 nitroglycerin 0.4 mg tablet, sublingual 0.4 mg SL Q5M PRN (Reason: Chest Pain) RF: 0 lactobacillus combination no.8 [Adult Probiotic] 3 billion cell capsule 3,000 mmu cells PO DAILY Qty: 90 RF: 0 peg 400-propylene glycol 0.4-0.3 % drops 1 drp ophthalmic (eye) PRN PRN (Reason: Dry Eyes) RF: 0 Women's One Daily 18 mg iron-400 mcg-500 mg Ca Tablet 1 tab PO DAILY RF: 0 PreserVision AREDS 1 cap PO BID RF: 0 Follow up/Referrals: Nicole Salinas DO [Primary Care Provider] - 12/27/19 11:30 am Diet/Activity/Treatments Diet: Diet as Tolerated Visit Report/Discharge Packet Instructions: Tips for Reducing Stress in Your Life, How to Prevent Falls, DI for Chest Pain Visit Report Forms: Patient Portal/API, Stroke Signs & Symptoms Discharge Data Primary Care Provider: Nicole Salinas Attending Provider: Nicole Salinas Admit Date/Time: 07/01/19 07:04 Discharges patient from system. Discharge Date/Time: 07/03/19 09:38
[2019-07-03] MEDS: PRAMIPEXOLE 0.25 MG TABLET 0.5 MG PO (08:30)
[2019-07-03] MEDS: FUROSEMIDE 40 MG/4 ML VIAL IV (08:31)
[2019-07-03] MEDS: ASPIRIN EC 81 MG TABLET PO (08:31)
[2019-07-03] MEDS: SODIUM CHLORIDE 0.9% FLUSH 10 ML IV (08:31)
[2019-07-03] MEDS: AMLODIPINE 5 MG TABLET 10 MG PO (08:31)
[2019-07-03] MEDS: METOPROLOL ER 50 MG TABLET PO (08:31)
--- NOTE | 2019-07-03 10:13 | CM.DPC ---
DCP/Continued: Reviewed chart. Spoke with Dr. Salinas this AM. She reports that patient will be discharged today. Patient resides with her spouse and his 65yr old son, which has caused some anxiety for patient. Met with patient explained ROTARY SLICING MACHINE OPERATOR role. Patient reports that she hopes to have step son out of their residence by Jul 19, 2019. Patient does attribute her anxiety to his living in the residence. Per patient, he has bipolar and moves her belongings around the house. Encouraged patient to set boundaries and stay firm on 07-19-19 move out date. Patient reports that it has been difficult with her spouse because he is forgetful and often gives in to son's requests. Patient's PCP is Dr. Salinas and she plans to see ROTARY SLICING MACHINE OPERATOR/Reny Crawford to explore coping techniques and assistance with her anxiety. Senior Resource guide provided to patient. Patient does not indicate any violence or feel threatened in her home by step son. P: Home today. CAYETANO Baez
--- NOTE | 2019-07-03 11:05 | PC.NURSE ---
Day Shift- Pt A&OX4, able to make needs known using call light, currently sitting up in recliner chair with chair alarm on. Night RN rec'd call from Dr. Salinas who will be in to see pt around 0730. Pt may eat breakfast and discharge after seen by Dr. Cade states is ready to go home. Denies chest pain or pressure, nausea. Asymptomatic. Spoke with pt regarding stress relievers, deep breathing, talking with a counsellor, adult protective services regarding her step-son, pt reports goal to have step-son move out of her house by beginning of July. States her son is a great source of stress in her home. Support provided. Pt drove herself to hospital and has car in parking lot. Pt left unit in no distress with all belongings via wheelchair with [employer] escort at 0938.
== END 2019-07-03 09:38 | disposition home or self-care (01) ==
LOC: ED 06:55 → AC 07:05
PROVIDERS: Admitting Provider Family Medicine; Emergency Provider Emergency Medicine; PCP Family Medicine; Visit Provider Family Medicine
DX: R07.9 Chest pain, unspecified (principal); E78.5 Hyperlipidemia, unspecified; I10 Essential (primary) hypertension; E03.9 Hypothyroidism, unspecified; F32.9 Major depressive disorder, single episode, unspecified; R60.0 Localized edema; Z63.8 Other specified problems related to primary support group; K21.9 Gastro-esophageal reflux disease without esophagitis; G25.81 Restless legs syndrome
CPT/HCPCS: 36415; 71045; 78451; 80053; 80061; 82550; 83690; 83880; 84484; 85025; 85610; 85730; 93005; 93010; 93016; 93017; 93018; 96374; 96376; 99217; 99220; 99225; 99284; 99285; G0378; A9502; J1940; J2785

== ENCOUNTER → 2019-07-13 12:15 | Outpatient (CLI) | payer MEDICARE, OTHER, SELFPAY ==
[2019-07-01 08:59] VITALS: BMI 30.9
[2019-07-13 14:22] LABS: BUN Creatinine Ratio 25.6 (6-22); Blood Urea Nitrogen 23 mg/dL (7-17); Carbon Dioxide 28 mmol/L (22-32); Chloride 109 mmol/L (98-107); Estimated Glomerular Filt Rate 59.8 mL/min (>60); Glucose 94 mg/dL (80-110); HEMOLYSIS < 15 (0-50); Potassium 3.8 mmol/L (3.4-5.1); Sodium 143 mmol/L (137-145)
== END ==
PROVIDERS: PCP Family Medicine; Visit Provider Family Medicine
DX: I10 Essential (primary) hypertension (principal)
CPT/HCPCS: 36415; 80048

== ENCOUNTER → 2020-05-29 13:45 | Outpatient (CLI) | payer MEDICARE, OTHER, SELFPAY ==
[2019-11-26 16:45] VITALS: BMI 30.9
[2020-05-29 14:23] LABS: Add Manual Diff / Slide Review NO; Basophils Absolute Auto 100 /uL (0-100); Basophils Percent Auto 0.8 % (0-2); Eosinophils Absolute Auto 200 /uL (0-450); Eosinophils Percent Auto 3.1 % (2-4); Hematocrit 38.2 % (36-46); Hemoglobin 12.6 g/dL (12.0-16.0); Lymphocytes Absolute Auto 2500 /uL (1100-4500); Mean Corpuscular Hemoglobin 27.9 PG (26-34); Mean Corpuscular Volume 84.7 fL (80-100); Monocytes Absolute Auto 600 /uL (0-900); Neutrophils Absolute Auto 4200 /uL (1500-7000); Neutrophils Percent Auto 55.1 % (50-75); Platelet Count 239 X10^3/uL (150-400); Red Blood Cell Count 4.51 X10^6/uL (4.0-5.2); Red Cell Distribution Width 15.4 % (11.6-14.8); White Blood Cell Count 7.6 X10^3/uL (4.5-11.0)
[2020-05-29 14:41] LABS: Alanine Aminotransferase 19 IU/L (<35); Albumin 3.9 g/dL (3.5-5.0); Albumin Globulin Ratio 1.3 (1.0-2.8); Alkaline Phosphatase 83 U/L (38-126); Aspartate Aminotransferase 27 IU/L (14-36); BUN Creatinine Ratio 21.4 (6-22); Bilirubin Total 0.4 mg/dL (0.2-1.3); Blood Urea Nitrogen 18 mg/dL (7-17); Carbon Dioxide 30 mmol/L (22-32); Chloride 106 mmol/L (98-107); Estimated Glomerular Filt Rate > 60.0 mL/min (>60); Glucose 98 mg/dL (80-110); HEMOLYSIS < 15 (0-50); Potassium 3.5 mmol/L (3.4-5.1); Sodium 140 mmol/L (137-145); Total Protein 6.9 g/dL (6.3-8.2)
[2020-05-29 15:13] LABS: TSH w/ Reflex to FT4 5.98 uIU/mL (0.47-4.68)
[2020-05-29 16:18] LABS: Free T4, Direct Thyroxine 1.53 ng/dL (0.78-2.19)
== END ==
PROVIDERS: PCP Family Medicine; Referring Provider Family Medicine; Visit Provider Family Medicine
DX: E03.9 Hypothyroidism, unspecified (principal); I10 Essential (primary) hypertension; R40.0 Somnolence
CPT/HCPCS: 36415; 80053; 84439; 84443; 85025

== ENCOUNTER 2020-12-12 12:26 | Emergency (ER) | payer MEDICARE, OTHER, SELFPAY ==
[2019-11-26 16:45] VITALS: BMI 30.9
[2020-12-12] VITALS (12 sets, daily range): BP systolic 144–195; BP diastolic 69–87; PULSE 70–84; RESP 16–28; TEMP 36.7; O2SAT 92–99; BMI 27.4
--- NOTE | 2020-12-12 16:35 | ED.EXTPRO ---
HPI - Extremity Problem <Cory Carter DO - Last Filed: 12/13/20 18:31> General Chief complaint: Extremity Problem,Nontraumatic Stated complaint: Cellulitis, Rt Leg, Poss DVT R/O, Sent from [facility] Time Seen by Provider: 12/12/20 16:32 Source: patient Mode of arrival: Wheelchair Limitations: no limitations History of Present Illness HPI Narrative: 85-year-old female nonsmoker with history of paroxysmal AFib, depression, heart failure, bipolar presents with family in the chief complaint of right hip pain with a recent fall and syncopal episode. She denies any head neck or back pain. She has pain in her right hip with motion and palpation. There is no numbness, tingling or weakness. She is no longer dizzy or lightheaded. She denies any nausea or vomiting. She denies any fever or chills. She denies any neurologic symptoms such as blurred vision, trouble with speech or focal deficits. MD Complaint: extremity pain Onset (ago): day(s) Pain Consistency: constant Location: right Quality: aching Radiation: none Relieving factors: rest Exacerbating factors: range of motion, weight bearing and walking Associated symptoms: denies other symptoms Related Data Home Medications Medication Instructions Recorded Confirmed nitroglycerin 0.4 mg sublingual 0.4 mg SL Q5M PRN 11/22/17 03/21/20 tablet Women's One Daily 1 tab PO DAILY 12/09/17 03/21/20 peg 400-propylene glycol 1 drp OPHTHALMIC (EYE) PRN PRN 12/09/17 03/21/20 PreserVision AREDS 1 cap PO BID 10/09/18 03/21/20 Previous Rx's Medication Instructions Recorded lactobacillus combination no.8 3 3,000 mmu cells PO DAILY #90 cap 03/13/18 billion cell capsule amlodipine 10 mg tablet 10 mg PO DAILY #90 tab 03/21/20 lansoprazole 30 mg capsule,delayed 30 mg PO DAILY #90 cap 06/17/20 release metoprolol succinate 50 mg 50 mg PO DAILY #90 tab 06/17/20 tablet,extended release 24 hr levothyroxine 100 mcg tablet 100 mcg PO DAILY #90 tab 07/30/20 pramipexole 0.5 mg tablet 0.5 mg PO BID #180 tab 07/30/20 furosemide 20 mg tablet 40 mg PO QPM #60 tab 09/22/20 potassium chloride 10 mEq See Rx Instructions .ROUTE 12/05/20 capsule,extended release .COMPLEX #90 cap cephalexin 500 mg PO TID 7 Days #21 cap 12/12/20 Allergies Allergy/AdvReac Type Severity Reaction Status Date / Time amitriptyline [AMITRIPTYLINE] Allergy Unknown Verified 12/12/20 12:43 gabapentin [GABAPENTIN] Allergy Unknown Verified 12/12/20 12:43 ANESTHESIA DRUG AdvReac Mild UNSURE FOR Uncoded 09/20/19 14:44 THE NAME 05/31/14 Review of Systems <Cory Carter, DO - Last Filed: 12/13/20 18:31> Constitutional Constitutional: Denies chills, Denies fatigue, Denies fever(s), Denies frequent falls, Denies lethargy and Denies weakness Eyes Eyes: Denies change in vision, Denies eye discharge, Denies irritation and Denies loss of vision ENT Ears, Nose, Mouth, and Throat: Denies change in voice, Denies dizziness, Denies neck pain, Denies sore throat and Denies throat swelling Cardiovascular Cardiovascular: Denies chest pain, Reports syncope, Denies irregular heart rhythm, Denies lightheadedness, Denies palpitations, Denies dyspnea, Denies dyspnea on exertion and Denies orthopnea Respiratory Respiratory: Denies cough, Denies dyspnea, Denies dyspnea on exertion and Denies wheezing Gastrointestinal Gastrointestinal: Denies abdominal pain, Denies change in bowel habits, Denies diarrhea, Denies nausea and Denies vomiting Musculoskeletal Musculoskeletal: Reports arthralgias, Denies neck pain and Denies numbness Integumentary/Breasts Skin/Breast: Denies pruritus, Denies erythema, Denies rash and Denies wounds Neurologic Neurologic: Denies behavioral changes, Denies confusion, Denies dizziness, Reports syncope, Denies frequent falls, Denies loss of vision, Denies numbness and Denies weakness Psychiatric Psychiatric: Denies anxiety, Denies behavioral changes, Denies confusion, Denies depression, Denies homicidal ideation and Denies suicidal ideation Endocrine Endocrine: Denies fatigue, Denies flushing and Denies palpitations Hematologic/Lymphatic Hematologic/Lymphatic: Denies easy bruising Allergic/Immunologic Allergic/Immunologic: Denies urticaria, Denies throat swelling and Denies wheezing Patient History <Cory Carter DO - Last Filed: 12/13/20 18:31> Medical History (Updated 12/12/20 @ 19:44 by Rita Nowak DO) (HFpEF) heart failure with preserved ejection fraction 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) Benign familial tremor Bipolar I disorder (05/22/13) Depression Diverticulosis of colon (05/22/13) Essential hypertension (05/22/13) Facial asymmetry Gastroesophageal reflux disease (05/22/13) Hyperlipidemia (05/22/13) Mitral regurgitation Paroxysmal atrial fibrillation Postoperative hypothyroidism (05/22/13) Pulmonary nodule Restless legs syndrome (05/22/13) Schatzki's ring Squamous cell carcinoma of skin of face (05/22/13) Tremor (05/22/13) Vitamin D deficiency Surgical History History of esophagogastroduodenoscopy (EGD) (~05/2006) History of thyroidectomy (~03/2005) Status post cholecystectomy (~12/2004) Status post colposcopy (~12/2008) Family History Father No problems noted. Mother No problems noted. Social History marital status: household members: spouse lives independently: Yes occupational status: other Smoking Status: Never smoker alcohol intake: never substance use type: does not use Smoking Status: Never smoker alcohol intake frequency: 0-2 drinks per day Substance Use Type: does not use Exam <Cory Carter DO - Last Filed: 12/13/20 18:31> Narrative Exam Narrative: GENERAL: [85] year old patient appears stated age. Well-nourished, well-developed patient, in mild distress. HEAD: Atraumatic. Normocephalic. EYES: Pupils equal round and reactive. Extraocular motions intact. No scleral icterus. No injection or drainage. ENT: Nose without bleeding, purulent drainage. Throat without erythema, tonsillar hypertrophy or exudate. Airway patent. NECK: Trachea midline. Non tender CARDIOVASCULAR: Regular rate and rhythm without murmurs, gallops, or rubs. RESPIRATORY: Clear to auscultation. Breath sounds equal bilaterally. No wheezes, rales, or rhonchi. GASTROINTESTINAL: Abdomen soft, non-tender, nondistended. EXTREMITIES: Right hip tender to palpation, no break in the skin, abrasion, warmth. No shortening or rotation, closed, isolated, NV in tact. Patient with too much pain to lift leg off cart. Increased pain with axial loading BACK: Nontender without deformity or crepitance. No flank tenderness. NEURO: AOx3. SKIN: No rash or erythema of visible areas Initial Vital Signs Initial Vital Signs: Vital Signs Temperature 98.0 F 12/12/20 12:40 Pulse Rate 78 12/12/20 12:40 Respiratory Rate 16 12/12/20 12:40 Blood Pressure 188/86 H 12/12/20 12:40 Pulse Oximetry 99 12/12/20 12:40 <Rita Nowak DO - Last Filed: 12/13/20 00:21> Initial Vital Signs Initial Vital Signs: Vital Signs Temperature 98.0 F 12/12/20 12:40 Pulse Rate 78 12/12/20 12:40 Respiratory Rate 16 12/12/20 12:40 Blood Pressure 188/86 H 12/12/20 12:40 Pulse Oximetry 99 12/12/20 12:40 Course <Cory Carter DO - Last Filed: 12/13/20 18:31> Course Course Narrative: Patient with thus far an unremarkable workup, x-ray of pelvis and hip are unremarkable, however given intense pain and inability to lift her leg or ambulated CT has been ordered to rule out occult fracture. Head CT was added as this patient is a poor historian and there is the remote question of whether her right leg is weak or is in pain. Patient has been signed out to Dr. Nowak for final disposition. 3 Orders Ordered: Discontinued Medications Acetaminophen (Acetaminophen 325 Mg Tablet) 975 mg PO NOW ONE Stop: 12/12/20 19:41 Last Admin: 12/12/20 19:50 Dose: 975 mg Documented by: KGALLAG Cephalexin HCl (Cephalexin 250 Mg Capsule) 500 mg PO NOW ONE Stop: 12/12/20 19:41 Last Admin: 12/12/20 19:50 Dose: 500 mg Documented by: KGALLAG Sodium Chloride (Normal Saline 0.9%) 1,000 mls @ 125 mls/hr IV CONT NAGI Last Infusion: 12/12/20 20:01 Dose: 0 mls/hr Documented by: Admin: 12/12/20 17:31 Dose: 125 mls/hr Documented by: LORI Vital Signs Vital signs: Vital Signs - 8 hr 12/12/20 16:43 12/12/20 17:00 12/12/20 17:22 Pulse Rate 80 75 70 Respiratory Rate 20 26 H Blood Pressure 195/87 H 174/77 H Pulse Oximetry 96 94 96 12/12/20 17:30 12/12/20 18:00 12/12/20 18:27 Pulse Rate 71 71 76 Respiratory Rate 28 H 25 H 22 Blood Pressure 168/75 H 166/79 H 169/87 H Pulse Oximetry 92 95 95 12/12/20 18:30 12/12/20 19:00 12/12/20 19:30 Pulse Rate 74 72 84 Respiratory Rate 22 28 H 23 Blood Pressure 182/81 H 190/84 H 194/84 H Pulse Oximetry 94 92 96 12/12/20 20:04 Pulse Rate Respiratory Rate 18 Blood Pressure Pulse Oximetry <Rita Nowak DO - Last Filed: 12/13/20 00:21> Orders Ordered: Discontinued Medications Acetaminophen (Acetaminophen 325 Mg Tablet) 975 mg PO NOW ONE Stop: 12/12/20 19:41 Last Admin: 12/12/20 19:50 Dose: 975 mg Documented by: PHILIPPE Cephalexin HCl (Cephalexin 250 Mg Capsule) 500 mg PO NOW ONE Stop: 12/12/20 19:41 Last Admin: 12/12/20 19:50 Dose: 500 mg Documented by: PHILIPPE Sodium Chloride (Normal Saline 0.9%) 1,000 mls @ 125 mls/hr IV CONT NAGI Last Infusion: 12/12/20 20:01 Dose: 0 mls/hr Documented by: Admin: 12/12/20 17:31 Dose: 125 mls/hr Documented by: LORI Vital Signs Vital signs: Vital Signs - 8 hr 12/12/20 16:43 12/12/20 17:00 12/12/20 17:22 Pulse Rate 80 75 70 Respiratory Rate 20 26 H Blood Pressure 195/87 H 174/77 H Pulse Oximetry 96 94 96 12/12/20 17:30 12/12/20 18:00 12/12/20 18:27 Pulse Rate 71 71 76 Respiratory Rate 28 H 25 H 22 Blood Pressure 168/75 H 166/79 H 169/87 H Pulse Oximetry 92 95 95 12/12/20 18:30 12/12/20 19:00 12/12/20 19:30 Pulse Rate 74 72 84 Respiratory Rate 22 28 H 23 Blood Pressure 182/81 H 190/84 H 194/84 H Pulse Oximetry 94 92 96 12/12/20 20:04 Pulse Rate Respiratory Rate 18 Blood Pressure Pulse Oximetry MDM - Extremity (Nontraumatic) <Cory Carter DO - Last Filed: 12/13/20 18:31> Lab Data Result diagrams: 12/12/20 16:55 12/12/20 16:55 Labs: Lab Results 12/12/20 12/12/20 12/12/20 Range/Units 16:55 16:55 20:00 WBC 9.6 (4.5-11.0) X10^3/uL RBC 4.47 (4.0-5.2) X10^6/uL Hgb 12.6 (12.0-16.0) g/dL Hct 38.1 (36-46) % MCV 85.2 (80-100) fL MCH 28.1 (26-34) PG MCHC 33.0 (30-36) % RDW 15.6 H (11.6-14.8) % Plt Count 223 (150-400) X10^3/uL Neut % (Auto) 63.1 (50-75) % Lymph % (Auto) 26.3 (25-40) % [place] % (Auto) 6.5 (3-14) % Eos % (Auto) 3.5 (2-4) % Baso % (Auto) 0.6 (0-2) % Neut # (Auto) 6000 (0539-2828) /uL Lymph # (Auto) 2500 (0043-6101) /uL [place] # (Auto) 600 (0-900) /uL Eos # (Auto) 300 (0-450) /uL Baso # (Auto) 100 (0-100) /uL Sodium 142 (137-145) mmol/L Potassium 3.4 (3.4-5.1) mmol/L Chloride 109 H (98-107) mmol/L Carbon Dioxide 26 (22-32) mmol/L BUN 14 (7-17) mg/dL Creatinine 0.68 (0.52-1.04) mg/dL Estimated GFR > 60.0 (>60) mL/min BUN/Creatinine Ratio 20.6 (6-22) Glucose 105 (80-110) mg/dL Calcium 9.2 (8.4-10.2) mg/dL Total Bilirubin 0.5 (0.2-1.3) mg/dL AST 57 H (14-36) IU/L ALT 56 H (<35) IU/L Alkaline Phosphatase 101 (38-126) U/L Total Creatine Kinase 50 (30-135) U/L CK-MB (CK-2) TNP CK-MB (CK-2) Rel Index TNP Troponin I < 0.012 (0.01-0.034) ng/mL Total Protein 7.0 (6.3-8.2) g/dL Albumin 3.9 (3.5-5.0) g/dL Globulin 3.1 (1.7-4.1) g/dL Albumin/Globulin Ratio 1.3 (1.0-2.8) Urine RBC 1-5/hpf (0-5/HPF) Urine WBC 1-5/hpf (0-5/HPF) Ur Squamous Epith Cells 0-1 /hpf (0-5/HPF) Urine Bacteria None seen (None) Ur Culture Indicated? Cult not indicated Urine Dip Bedside Urine Glucose Negative Bedside Urine Bilirubin - Negative Bedside Urine Ketone - Negative Urine Specific [place] 1.015 Bedside Urine Occult Blood +/- Bedside Urine pH 6 Bedside Urine Protein - Negative Bedside Urine Urobilinogen - Negative Bedside Urine Nitrite - Negative Bedside Urine Leukocytes - Negative Esterase Imaging Data hip xray: Radiologist's Impression: [address] [id number] ReportSigned Patient: Lolis Strickland LMR#: [id number]: [id number]:[id number]/Sex: 85 / FDate of Service: 12/12/20Loc: EDAccession Number: [id number] Procedure: XR hip w pel if done RT 2V Ordering Provider: Cory Carter D.O. PROCEDURE: XR HIP W PEL IF DONE RT 2V INDICATIONS: fall with R hip pain TECHNIQUE: Single AP view of the pelvis and additional view of the right hip was obtained. COMPARISON: None. FINDINGS: Bones: No fractures or dislocations. No suspicious bony lesions. The visualized pelvic ring appears intact. Degenerative changes noted in lower lumbar spine Soft tissues: No suspicious soft tissue calcifications or masses. Moderate bilateral hip joint space narrowing present. IMPRESSION: Heii-cf-aldbmywl osteoarthritis without fracture or foreign body Dictated by: Jose Jacome M.D. on 12/12/2020 at 16:34 Approved by: Jose Jacome M.D. on 12/12/2020 at 16:35 US - DVT: Radiologist's Impression: Lolis Strickland 85 F [address] [id number] ReportSigned Patient: Lolis Strickland LMR#: [id number]: 1935cct:[id number]/Sex: 85 / FDate of Service: 12/12/20Loc: EDAccession Number: [id number] Procedure: US periph venous low extrem rt Ordering Provider: Cory Carter D.O. PROCEDURE: US PERIPH VENOUS LOW EXTREM RT INDICATIONS: pain, swelling right leg TECHNIQUE: Real-time imaging, as well as color and pulse Doppler interrogation, were performed of the lower extremity deep veins from the inguinal ligament to the popliteal fossa. COMPARISON: None. FINDINGS: The common femoral, femoral and popliteal veins are normally compressible, and free of intraluminal thrombus. Color and pulse Doppler demonstrate normal phasic intraluminal flow. There is normal augmentation response to distal compression maneuver. IMPRESSION: Negative for deep venous thrombosis. Dictated by: Rojelio Ziegler M.D. on 12/12/2020 at 16:46 Approved by: Rojelio Ziegler M.D. on 12/12/2020 at 16:46 ECG Data Interpretation: EKG is normal sinus rhythm rate [70 ] and free of any signs of ischemia or ectopy. No ST segment elevation. <Rita Nowak, DO - Last Filed: 12/13/20 00:21> Lab Data Labs: Lab Results 12/12/20 12/12/20 12/12/20 Range/Units 16:55 16:55 20:00 WBC 9.6 (4.5-11.0) X10^3/uL RBC 4.47 (4.0-5.2) X10^6/uL Hgb 12.6 (12.0-16.0) g/dL Hct 38.1 (36-46) % MCV 85.2 (80-100) fL MCH 28.1 (26-34) PG MCHC 33.0 (30-36) % RDW 15.6 H (11.6-14.8) % Plt Count 223 (150-400) X10^3/uL Neut % (Auto) 63.1 (50-75) % Lymph % (Auto) 26.3 (25-40) % [place] % (Auto) 6.5 (3-14) % Eos % (Auto) 3.5 (2-4) % Baso % (Auto) 0.6 (0-2) % Neut # (Auto) 6000 (0957-5618) /uL Lymph # (Auto) 2500 (8210-1396) /uL [place] # (Auto) 600 (0-900) /uL Eos # (Auto) 300 (0-450) /uL Baso # (Auto) 100 (0-100) /uL Sodium 142 (137-145) mmol/L Potassium 3.4 (3.4-5.1) mmol/L Chloride 109 H (98-107) mmol/L Carbon Dioxide 26 (22-32) mmol/L BUN 14 (7-17) mg/dL Creatinine 0.68 (0.52-1.04) mg/dL Estimated GFR > 60.0 (>60) mL/min BUN/Creatinine Ratio 20.6 (6-22) Glucose 105 (80-110) mg/dL Calcium 9.2 (8.4-10.2) mg/dL Total Bilirubin 0.5 (0.2-1.3) mg/dL AST 57 H (14-36) IU/L ALT 56 H (<35) IU/L Alkaline Phosphatase 101 (38-126) U/L Total Creatine Kinase 50 (30-135) U/L CK-MB (CK-2) TNP CK-MB (CK-2) Rel Index TNP Troponin I < 0.012 (0.01-0.034) ng/mL Total Protein 7.0 (6.3-8.2) g/dL Albumin 3.9 (3.5-5.0) g/dL Globulin 3.1 (1.7-4.1) g/dL Albumin/Globulin Ratio 1.3 (1.0-2.8) Urine RBC 1-5/hpf (0-5/HPF) Urine WBC 1-5/hpf (0-5/HPF) Ur Squamous Epith Cells 0-1 /hpf (0-5/HPF) Urine Bacteria None seen (None) Ur Culture Indicated? Cult not indicated Urine Dip Bedside Urine Glucose Negative Bedside Urine Bilirubin - Negative Bedside Urine Ketone - Negative Urine Specific [place] 1.015 Bedside Urine Occult Blood +/- Bedside Urine pH 6 Bedside Urine Protein - Negative Bedside Urine Urobilinogen - Negative Bedside Urine Nitrite - Negative Bedside Urine Leukocytes - Negative Esterase Imaging Data CT Pelvis: Radiologist's Impression: PROCEDURE: CT PEL WO CON INDICATIONS: fall hip pain, cannot ambulate TECHNIQUE: Noncontrast 3 mm axial sections acquired through the bony pelvis, with coronal and sagittal reformatting. COMPARISON: None. FINDINGS: Osseous structures of the pelvis are intact without evidence of fracture or dislocation. Severe bilateral acetabular joint space narrowing without head flattening of the femur. Small marginal osteophytes present as well. Degenerative disc disease noted in the lower lumbar spine with severe bilateral L5-S1 foraminal stenosis. Atherosclerotic vascular calcification of the distal aorta and the iliac vessels without evidence of aneurysm. Multiple diverticula arise from the sigmoid colon without diverticulitis. No free fluid in the pelvis. IMPRESSION: 1. No evidence of acute injury. No fracture or malalignment. 2. Advanced bilateral hip osteoarthritis without head flattening. 3. Degenerative disc disease and arthropathy lower lumbar spine result in severe bilateral L5-S1 foraminal stenosis. Dictated by: Jose Jacome M.D. on 12/12/2020 at 17:48 Approved by: Jose Jacome M.D. on 12/12/2020 at 17:53 CT scan - head: Radiologist's Impression: PROCEDURE: CT HEAD/BRAIN WO CON INDICATIONS: fall, right leg weakness or pain, fall and syncope TECHNIQUE: Noncontrast 4.5 mm thick angled axial sections acquired from the foramen magnum to the vertex, with coronal and sagittal reformats. For radiation dose reduction, the following was used: automated exposure control, adjustment of mA and/or kV according to patient size. COMPARISON: [facility], CT, CT HEAD/BRAIN WO CON, 12/09/2017, 13:47. FINDINGS: Image quality: Excellent. CSF spaces: Basal cisterns are patent. No extra-axial fluid collections. The ventricles are symmetric in size and shape. Brain: No intracranial bleeds or masses. There is cerebral volume loss for age, with resultant ventricular and sulcal prominence. There are periventricular and deep white matter chronic small vessel ischemic changes. There is intracranial internal carotid and intradural vertebral arteries atherosclerosis. Skull and face: Calvarium and visualized facial bones appear intact, without suspicious lesions. Bilateral intraocular lens replacements noted. Sinuses: Visualized sinuses and mastoids are clear. IMPRESSION: Atrophy and chronic ischemic change without acute hemorrhage or mass effect. Dictated by: Jose Jacome M.D. on 12/12/2020 at 17:44 Approved by: Jose Jacome M.D. on 12/12/2020 at 17:47 MDM Narrative Medical decision making narrative: I have received sign-out from Dr. Carter I seen and evaluated patient myself. She is complaining of right hip and groin pain that is definitely worse with movement. She remembers that she passed out couple of days ago. She is not sure why or details of that experience. However since then she has had increased right groin pain. She denies any fever or chills. She has pain with ambulation. CT is and x-ray are negative for fracture. She really describes the pain in the inguinal ligament and radiating around the hip. It is non erythematous. She does have bilateral lower extremity erythema that does appear to be chronic venous stasis however the right leg does seem to be slightly more erythematous than the left. She says that is new. She has no leukocytosis she is afebrile. Do not think severe infection or sepsis at this time. No evidence of a septic joint. She is ambulatory to the restroom does need some assistance. They have someone to stay with her and her tonight at likely tomorrow night as well. Differential diagnosis includes hip strain, septic joint, psoas abscess, most likely a hip strain. Discharge Plan Departure Patient Disposition: Home Clinical Impression: Strain of muscle of right hip Qualifiers: Encounter type: initial encounter Qualified Code(s): S76.011A - Strain of muscle, fascia and tendon of right hip, initial encounter Cellulitis Qualifiers: Site of cellulitis: extremity Site of cellulitis of extremity: lower extremity Laterality: right Qualified Code(s): L03.115 - Cellulitis of right lower limb Instructions: DI for Cellulitis -- Adult, DI for Hip Pain Activity Restrictions/Additional Instructions: *You have been diagnosed with right hip sprain and cellulitis *What to do: At this time recommend using a walker while getting around the house so they do not fall. I also recommend getting a Life Alert button. *Continue to take medications as directed Tylenol 650 mg every 4-6 hours if needed for oakc-my-cesrjmbt pain Keflex 500 mg 3 times a day for 1 week--> SENT TO [facility] [place] *Follow up with your primary care provider in 2-3 days *Return to ER if you should have increasing falls, increasing weakness, fever [or] any new, worsening or concerning symptoms Prescriptions: New cephalexin 500 mg capsule 500 mg PO TID 7 Days Qty: 21 RF: 0 No Action amlodipine 10 mg tablet 10 mg PO DAILY Qty: 90 RF: 1 metoprolol succinate 50 mg tablet extended release 24 hr 50 mg PO DAILY Qty: 90 RF: 3 lansoprazole 30 mg capsule,delayed release(DR/EC) 30 mg PO DAILY Qty: 90 RF: 3 pramipexole 0.5 mg tablet 0.5 mg PO BID Qty: 180 RF: 0 levothyroxine 100 mcg tablet 100 mcg PO DAILY Qty: 90 RF: 3 furosemide 20 mg tablet 40 mg PO QPM Qty: 60 RF: 2 potassium chloride 10 mEq capsule, extended release See Rx Instructions .ROUTE .COMPLEX Qty: 90 RF: 0 nitroglycerin 0.4 mg tablet, sublingual 0.4 mg SL Q5M PRN (Reason: Chest Pain) RF: 0 lactobacillus combination no.8 [Adult Probiotic] 3 billion cell capsule 3,000 mmu cells PO DAILY Qty: 90 RF: 0 peg 400-propylene glycol 0.4-0.3 % drops 1 drp ophthalmic (eye) PRN PRN (Reason: Dry Eyes) RF: 0 Women's One Daily 18 mg iron-400 mcg-500 mg Ca Tablet 1 tab PO DAILY RF: 0 PreserVision AREDS 1 cap PO BID RF: 0 Referrals: Nicole Salinas DO [Primary Care Provider] -
--- NOTE | 2020-12-12 16:42 | DI.RAD.S_ITS ---
PROCEDURE: XR HIP W PEL IF DONE RT 2V INDICATIONS: fall with R hip pain TECHNIQUE: Single AP view of the pelvis and additional view of the right hip was obtained. COMPARISON: None. FINDINGS: Bones: No fractures or dislocations. No suspicious bony lesions. The visualized pelvic ring appears intact. Degenerative changes noted in lower lumbar spine Soft tissues: No suspicious soft tissue calcifications or masses. Moderate bilateral hip joint space narrowing present. IMPRESSION: Hihr-bv-fohmaxen osteoarthritis without fracture or foreign body Dictated by: Jose Jacome M.D. on 12/12/2020 at 16:34 Approved by: Jose Jacome M.D. on 12/12/2020 at 16:35
--- NOTE | 2020-12-12 16:43 | DI.US.S_ITS ---
PROCEDURE: US PERIPH VENOUS LOW EXTREM RT INDICATIONS: pain, swelling right leg TECHNIQUE: Real-time imaging, as well as color and pulse Doppler interrogation, were performed of the lower extremity deep veins from the inguinal ligament to the popliteal fossa. COMPARISON: None. FINDINGS: The common femoral, femoral and popliteal veins are normally compressible, and free of intraluminal thrombus. Color and pulse Doppler demonstrate normal phasic intraluminal flow. There is normal augmentation response to distal compression maneuver. IMPRESSION: Negative for deep venous thrombosis. Dictated by: Rojelio Ziegler M.D. on 12/12/2020 at 16:46 Approved by: Rojelio Ziegler M.D. on 12/12/2020 at 16:46
[2020-12-12 17:01] LABS: Add Manual Diff / Slide Review NO; Basophils Absolute Auto 100 /uL (0-100); Basophils Percent Auto 0.6 % (0-2); Eosinophils Absolute Auto 300 /uL (0-450); Eosinophils Percent Auto 3.5 % (2-4); Hematocrit 38.1 % (36-46); Hemoglobin 12.6 g/dL (12.0-16.0); Lymphocytes Absolute Auto 2500 /uL (1100-4500); Lymphocytes Percent Auto 26.3 % (25-40); Mean Corpuscular Hemoglobin 28.1 PG (26-34); Mean Corpuscular Volume 85.2 fL (80-100); Monocytes Absolute Auto 600 /uL (0-900); Monocytes Percent Auto 6.5 % (3-14); Neutrophils Absolute Auto 6000 /uL (1500-7000); Neutrophils Percent Auto 63.1 % (50-75); Platelet Count 223 X10^3/uL (150-400); Red Blood Cell Count 4.47 X10^6/uL (4.0-5.2); Red Cell Distribution Width 15.6 % (11.6-14.8); White Blood Cell Count 9.6 X10^3/uL (4.5-11.0)
[2020-12-12 17:14] LABS: Alanine Aminotransferase 56 IU/L (<35); Albumin 3.9 g/dL (3.5-5.0); Albumin Globulin Ratio 1.3 (1.0-2.8); Alkaline Phosphatase 101 U/L (38-126); Aspartate Aminotransferase 57 IU/L (14-36); BUN Creatinine Ratio 20.6 (6-22); Bilirubin Total 0.5 mg/dL (0.2-1.3); Blood Urea Nitrogen 14 mg/dL (7-17); Calcium 9.2 mg/dL (8.4-10.2); Carbon Dioxide 26 mmol/L (22-32); Chloride 109 mmol/L (98-107); Creatine Kinase 50 U/L (30-135); Estimated Glomerular Filt Rate > 60.0 mL/min (>60); Globulin 3.1 g/dL (1.7-4.1); Glucose 105 mg/dL (80-110); HEMOLYSIS < 15 (0-50); Potassium 3.4 mmol/L (3.4-5.1); Sodium 142 mmol/L (137-145)
[2020-12-12 17:26] LABS: Troponin I < 0.012 ng/mL (0.01-0.034)
[2020-12-12] MEDS: SODIUM CHLORIDE 0.9% 1,000 ML 125 ML IV (17:31)
--- NOTE | 2020-12-12 18:00 | DI.CT.S_ITS ---
PROCEDURE: CT PEL WO CON INDICATIONS: fall hip pain, cannot ambulate TECHNIQUE: Noncontrast 3 mm axial sections acquired through the bony pelvis, with coronal and sagittal reformatting. COMPARISON: None. FINDINGS: Osseous structures of the pelvis are intact without evidence of fracture or dislocation. Severe bilateral acetabular joint space narrowing without head flattening of the femur. Small marginal osteophytes present as well. Degenerative disc disease noted in the lower lumbar spine with severe bilateral L5-S1 foraminal stenosis. Atherosclerotic vascular calcification of the distal aorta and the iliac vessels without evidence of aneurysm. Multiple diverticula arise from the sigmoid colon without diverticulitis. No free fluid in the pelvis. IMPRESSION: 1. No evidence of acute injury. No fracture or malalignment. 2. Advanced bilateral hip osteoarthritis without head flattening. 3. Degenerative disc disease and arthropathy lower lumbar spine result in severe bilateral L5-S1 foraminal stenosis. Dictated by: Jose Jacome M.D. on 12/12/2020 at 17:48 Approved by: Jose Jacome M.D. on 12/12/2020 at 17:53
--- NOTE | 2020-12-12 18:04 | DI.CT.S_ITS ---
PROCEDURE: CT HEAD/BRAIN WO CON INDICATIONS: fall, right leg weakness or pain, fall and syncope TECHNIQUE: Noncontrast 4.5 mm thick angled axial sections acquired from the foramen magnum to the vertex, with coronal and sagittal reformats. For radiation dose reduction, the following was used: automated exposure control, adjustment of mA and/or kV according to patient size. COMPARISON: [facility], CT, CT HEAD/BRAIN WO CON, 12/09/2017, 13:47. FINDINGS: Image quality: Excellent. CSF spaces: Basal cisterns are patent. No extra-axial fluid collections. The ventricles are symmetric in size and shape. Brain: No intracranial bleeds or masses. There is cerebral volume loss for age, with resultant ventricular and sulcal prominence. There are periventricular and deep white matter chronic small vessel ischemic changes. There is intracranial internal carotid and intradural vertebral arteries atherosclerosis. Skull and face: Calvarium and visualized facial bones appear intact, without suspicious lesions. Bilateral intraocular lens replacements noted. Sinuses: Visualized sinuses and mastoids are clear. IMPRESSION: Atrophy and chronic ischemic change without acute hemorrhage or mass effect. Dictated by: Jose Jacome M.D. on 12/12/2020 at 17:44 Approved by: Jose Jacome M.D. on 12/12/2020 at 17:47
[2020-12-12] MEDS: cephALEXin 250 MG CAPSULE 500 MG PO (19:50)
[2020-12-12] MEDS: ACETAMINOPHEN 325 MG TABLET 975 MG PO (19:50)
[2020-12-12 20:16] LABS: Bacteria Urine None Seen
[2020-12-12 20:39] LABS: Culture Indicated Urine Cult Not Indicated; RBC Urine 1-5/HPF (0-5/HPF); Squamous Epithelial Cell Urine 0-1 /HPF (0-5/HPF); WBC Urine 1-5/HPF (0-5/HPF)
== END 2020-12-12 20:13 | disposition home or self-care (01) ==
PROVIDERS: Emergency Medicine; Emergency Provider Emergency Medicine; PCP Family Medicine
DX: S76.011A Strain of muscle, fascia and tendon of right hip, initial encounter (principal); L03.115 Cellulitis of right lower limb; W19.XXXA Unspecified fall, initial encounter; R55 Syncope and collapse
CPT/HCPCS: 36415; 70450; 72192; 73502; 80053; 81003; 81015; 82550; 84484; 85025; 93005; 93971; 96360; 96361; 99284; 99285

== ENCOUNTER 2020-12-16 21:11 | Inpatient (IN) | payer MEDICARE, OTHER, SELFPAY ==
[2019-11-26 16:45] VITALS: BMI 30.9
[2020-12-16 21:22] VITALS: BP 176/83; PULSE 78; RESP 17; TEMP 36.5; O2SAT 95
--- NOTE | 2020-12-16 22:10 | DI.CT.S_ITS ---
PROCEDURE: CT LUMBAR SPINE WO CON INDICATIONS: recent fall, worsening leg pain TECHNIQUE: Noncontrast 3 mm thick sections acquired from the T12 level to the sacrum. Sagittal and coronal reformats were constructed. For radiation dose reduction, the following was used: automated exposure control. COMPARISON: [facility], CT, CT PEL WO CON, 12/12/2020, 18:09. [facility], CR, XR HIP W PEL IF DONE RT 2V, 12/12/2020, 17:08. FINDINGS: Image quality: Excellent. Bones: There is grade 1 retrolisthesis measuring 8 mm of L5 on S1. No visualized fractures or dislocations. No suspicious osseous lesions. There is severe disc space narrowing at L5-S1 with vacuum disc. Moderate disc space narrowing with vacuum disc is present at L4-5. Ebql-xc-[id number] disc space narrowing is present throughout the remainder of the lumbar spine. Multilevel disc bulges are present. Mild spinal stenosis is present at L2-3, severe L3-4, L4-5 and moderate L5-S1. Mild to moderate bilateral foraminal narrowing is present at L3-4, moderate to severe right L4-5, severe bilateral L5-S1. Multilevel facet and ligamentum flavum hypertrophy are present. Soft tissues: No retroperitoneal masses or hematomas. Colonic diverticula are present. Visualized aorta is normal in caliber. IMPRESSION: 1. Multileve degenerative changes without fracture. The above findings are concordant with preliminary report. Dictated by: Marissa Ybarra M.D. on 12/17/2020 at 8:57 Approved by: Marissa Ybarra M.D. on 12/17/2020 at 10:30
[2020-12-16 22:20] LABS: Add Manual Diff / Slide Review NO; Basophils Absolute Auto 100 /uL (0-100); Basophils Percent Auto 0.7 % (0-2); Eosinophils Absolute Auto 400 /uL (0-450); Eosinophils Percent Auto 4.8 % (2-4); Hematocrit 35.3 % (36-46); Hemoglobin 11.4 g/dL (12.0-16.0); Lymphocytes Absolute Auto 2000 /uL (1100-4500); Lymphocytes Percent Auto 23.3 % (25-40); Mean Corpuscular HGB Conc 32.3 % (30-36); Mean Corpuscular Hemoglobin 27.6 PG (26-34); Mean Corpuscular Volume 85.5 fL (80-100); Monocytes Absolute Auto 500 /uL (0-900); Monocytes Percent Auto 6.3 % (3-14); Neutrophils Absolute Auto 5500 /uL (1500-7000); Neutrophils Percent Auto 64.9 % (50-75); Platelet Count 229 X10^3/uL (150-400); Red Blood Cell Count 4.13 X10^6/uL (4.0-5.2); Red Cell Distribution Width 15.7 % (11.6-14.8); White Blood Cell Count 8.5 X10^3/uL (4.5-11.0)
[2020-12-16] MEDS: SODIUM CHLORIDE 0.9% 1,000 ML 125 ML IV (22:23)
[2020-12-16 22:40] LABS: Alanine Aminotransferase 30 IU/L (<35); Albumin 3.5 g/dL (3.5-5.0); Albumin Globulin Ratio 1.3 (1.0-2.8); Alkaline Phosphatase 86 U/L (38-126); Aspartate Aminotransferase 31 IU/L (14-36); BUN Creatinine Ratio 23.5 (6-22); Bilirubin Total 0.3 mg/dL (0.2-1.3); Blood Urea Nitrogen 16 mg/dL (7-17); Calcium 8.9 mg/dL (8.4-10.2); Carbon Dioxide 27 mmol/L (22-32); Chloride 108 mmol/L (98-107); Creatine Kinase 46 U/L (30-135); Estimated Glomerular Filt Rate > 60.0 mL/min (>60); Globulin 2.8 g/dL (1.7-4.1); Glucose 102 mg/dL (80-110); HEMOLYSIS < 15 (0-50); Potassium 3.4 mmol/L (3.4-5.1); Sodium 140 mmol/L (137-145); Total Protein 6.3 g/dL (6.3-8.2)
[2020-12-16 22:50] VITALS: BP 163/74; PULSE 72; O2SAT 96
[2020-12-16 22:52] LABS: NT-proBNP (BNP-Adult 18+) 169 pg/mL (<450); Troponin I < 0.012 ng/mL (0.01-0.034)
[2020-12-16 23:00] VITALS: BP 162/73; PULSE 70; O2SAT 95
[2020-12-16 23:30] VITALS: BP 152/68; PULSE 66; O2SAT 94
[2020-12-16 23:36] VITALS: PULSE 63; O2SAT 97
--- NOTE | 2020-12-16 23:47 | ED_ITS ---
HPI - Extremity Problem General Chief complaint: Extremity Problem,Nontraumatic Stated complaint: thing with her knee is worse Time Seen by Provider: 12/16/20 21:12 Source: patient Mode of arrival: Wheelchair Limitations: no limitations History of Present Illness HPI Narrative: 85-year-old female nonsmoker with history of paroxysmal AFib, depression, heart failure, bipolar presents for the 2nd time for evaluation pain in her right lower extremity which is worsening. She had been seen and evaluated a few days ago with complaint of R hip and leg pain after a recent fall due to syncope. She had a thorough evaluation including labs, hip Xray, head and Pelvis CT, RLE DVT study and all was reasuring. She was discharged with the diagnosis of hip pain and started on Keflex for suspected acute on chronic cellulitis. She does have evidence of chronic venous stasis but since that visit has developed a new, bright red, painful region at the superior edge of her chronic changes. Additionally she states that the pain is traveling up her leg and she feels feverish, with chills and generally unwell. She has been taking her medications as directed. MD Complaint: extremity pain and extremity swelling Onset (ago): day(s) Pain Consistency: constant Location: right and lower extremity Quality: burning and aching Radiation: proximal Relieving factors: rest Exacerbating factors: walking Associated symptoms: fever and other Related Data Home Medications Medication Instructions Recorded Confirmed nitroglycerin 0.4 mg sublingual 0.4 mg SL Q5M PRN 11/22/17 03/21/20 tablet Women's One Daily 1 tab PO DAILY 12/09/17 03/21/20 peg 400-propylene glycol 1 drp OPHTHALMIC (EYE) PRN PRN 12/09/17 03/21/20 PreserVision AREDS 1 cap PO BID 10/09/18 03/21/20 Previous Rx's Medication Instructions Recorded lactobacillus combination no.8 3 3,000 mmu cells PO DAILY #90 cap 03/13/18 billion cell capsule amlodipine 10 mg tablet 10 mg PO DAILY #90 tab 03/21/20 lansoprazole 30 mg capsule,delayed 30 mg PO DAILY #90 cap 06/17/20 release metoprolol succinate 50 mg 50 mg PO DAILY #90 tab 06/17/20 tablet,extended release 24 hr levothyroxine 100 mcg tablet 100 mcg PO DAILY #90 tab 07/30/20 pramipexole 0.5 mg tablet 0.5 mg PO BID #180 tab 07/30/20 furosemide 20 mg tablet 40 mg PO QPM #60 tab 09/22/20 potassium chloride 10 mEq See Rx Instructions .ROUTE 12/05/20 capsule,extended release .COMPLEX #90 cap cephalexin 500 mg PO TID 7 Days #21 cap 12/12/20 Allergies Allergy/AdvReac Type Severity Reaction Status Date / Time amitriptyline [AMITRIPTYLINE] Allergy Unknown Verified 12/12/20 12:43 gabapentin [GABAPENTIN] Allergy Unknown Verified 12/12/20 12:43 ANESTHESIA DRUG AdvReac Mild UNSURE FOR Uncoded 09/20/19 14:44 THE NAME 05/31/14 Review of Systems Constitutional Constitutional: Reports chills, Reports fatigue, Reports fever(s), Denies frequent falls, Reports lethargy and Reports weakness Eyes Eyes: Denies change in vision, Denies eye discharge, Denies irritation and Denies loss of vision ENT Ears, Nose, Mouth, and Throat: Denies change in voice, Denies dizziness, Denies neck pain, Denies sore throat and Denies throat swelling Cardiovascular Cardiovascular: Denies chest pain, Denies irregular heart rhythm, Denies lightheadedness, Denies palpitations, Denies dyspnea, Denies dyspnea on exertion and Denies orthopnea Respiratory Respiratory: Denies cough, Denies dyspnea, Denies dyspnea on exertion and Denies wheezing Gastrointestinal Gastrointestinal: Denies abdominal pain, Denies change in bowel habits, Denies diarrhea, Denies nausea and Denies vomiting Musculoskeletal Musculoskeletal: Reports arthralgias, Denies neck pain and Denies numbness Integumentary/Breasts Skin/Breast: Denies pruritus, Reports erythema, Denies rash, Reports skin pain and Denies wounds Neurologic Neurologic: Denies behavioral changes, Denies confusion, Denies dizziness, Denies frequent falls, Denies loss of vision, Denies numbness and Reports weakness Psychiatric Psychiatric: Denies anxiety, Denies behavioral changes, Denies confusion, Denies depression, Denies homicidal ideation and Denies suicidal ideation Endocrine Endocrine: Reports fatigue, Denies flushing and Denies palpitations Hematologic/Lymphatic Hematologic/Lymphatic: Denies easy bruising Allergic/Immunologic Allergic/Immunologic: Denies urticaria, Denies throat swelling and Denies wheezing 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) Benign familial tremor Bipolar I disorder (05/22/13) Depression Diverticulosis of colon (05/22/13) Essential hypertension (05/22/13) Facial asymmetry Gastroesophageal reflux disease (05/22/13) Hyperlipidemia (05/22/13) Mitral regurgitation Paroxysmal atrial fibrillation Postoperative hypothyroidism (05/22/13) Pulmonary nodule Restless legs syndrome (05/22/13) Schatzki's ring Squamous cell carcinoma of skin of face (05/22/13) Tremor (05/22/13) Vitamin D deficiency Surgical History History of esophagogastroduodenoscopy (EGD) (~05/2006) History of thyroidectomy (~03/2005) Status post cholecystectomy (~12/2004) Status post colposcopy (~12/2008) Family History Father No problems noted. Mother No problems noted. Social History marital status: household members: spouse lives independently: Yes occupational status: other Smoking Status: Never smoker alcohol intake: never substance use type: does not use Smoking Status: Never smoker alcohol intake frequency: 0-2 drinks per day Substance Use Type: does not use Exam Narrative Exam Narrative: GENERAL: [85] year old patient appears stated age. Well- nourished, well-developed patient, in mild distress. Anxious HEAD: Atraumatic. Normocephalic. EYES: Pupils equal round and reactive. Extraocular motions intact. No scleral ic terus. No injection or drainage. ENT: Nose without bleeding, purulent drainage. Throat without erythema, tonsillar hypertrophy or exudate. Airway patent. NECK: Trachea midline. Non tender CARDIOVASCULAR: Regular rate and rhythm without murmurs, gallops, or rubs. RESPIRATORY: Clear to auscultation. Breath sounds equal bilaterally. No wheezes, rales, or rhonchi. GASTROINTESTINAL: Abdomen soft, non-tender, nondistended. EXTREMITIES: Bilateral lower extremities circumferentially erythematous with evidence of chronic venous stasis, right lower extremity with acute change, bright red, tender at the proximal edge of chronic changes BACK: Nontender without deformity or crepitance. No flank tenderness. NEURO: AOx3. SKIN: No rash or erythema of visible areas Initial Vital Signs Initial Vital Signs: Vital Signs Temperature 97.7 F 12/16/20 21:22 Pulse Rate 78 12/16/20 21:22 Respiratory Rate 17 12/16/20 21:22 Blood Pressure 176/83 H 12/16/20 21:22 Pulse Oximetry 95 12/16/20 21:22 Course Orders Ordered: ED Orders 12/16/20 22:05 Complete Blood Count AUTO DIFF Stat Comprehensive Metabolic Panel Stat NT-proBNP (BNP-Adult 18+) Stat Troponin & CK Cardiac Panel Stat 12/16/20 22:10 CT lumbar spine wo con Stat EKG-12 Lead Stat 12/16/20 22:25 Blood Culture Stat 12/16/20 23:40 COVID19 - ADMIT (HOSPICE DIRECTOR swab/PCR) Stat Sodium Chloride (Normal Saline 0.9%) 1,000 mls @ 125 mls/hr IV CONT NAGI Last Admin: 12/16/20 22:23 Dose: 125 mls/hr Documented by: BERHANE Vancomycin HCl (Vancomycin) 1,250 mg in 250 mls @ 250 mls/hr IV NOW ONE Stop: 12/17/20 01:28 Last Admin: 12/17/20 00:48 Dose: 250 mls/hr Documented by: Vital Signs Vital signs: Vital Signs - 8 hr 12/16/20 21:22 12/16/20 22:50 12/16/20 23:00 Temperature 97.7 F Pulse Rate 78 72 70 Respiratory Rate 17 Blood Pressure 176/83 H 163/74 H 162/73 H Pulse Oximetry 95 96 95 12/16/20 23:30 Temperature Pulse Rate 66 Respiratory Rate Blood Pressure 152/68 H Pulse Oximetry 94 MDM - Extremity (Nontraumatic) Lab Data Result diagrams: 12/16/20 22:05 12/16/20 22:05 Labs: Lab Results 12/16/20 12/16/20 12/16/20 Range/Units 22:05 22:05 23:40 WBC 8.5 (4.5-11.0) X10^3/uL RBC 4.13 (4.0-5.2) X10^6/uL Hgb 11.4 L (12.0-16.0) g/dL Hct 35.3 L (36-46) % MCV 85.5 (80-100) fL MCH 27.6 (26-34) PG MCHC 32.3 (30-36) % RDW 15.7 H (11.6-14.8) % Plt Count 229 (150-400) X10^3/uL Neut % (Auto) 64.9 (50-75) % Lymph % (Auto) 23.3 L (25-40) % [place] % (Auto) 6.3 (3-14) % Eos % (Auto) 4.8 H (2-4) % Baso % (Auto) 0.7 (0-2) % Neut # (Auto) 5500 (3871-3518) /uL Lymph # (Auto) 2000 (9416-1590) /uL [place] # (Auto) 500 (0-900) /uL Eos # (Auto) 400 (0-450) /uL Baso # (Auto) 100 (0-100) /uL Sodium 140 (137-145) mmol/L Potassium 3.4 (3.4-5.1) mmol/L Chloride 108 H (98-107) mmol/L Carbon Dioxide 27 (22-32) mmol/L BUN 16 (7-17) mg/dL Creatinine 0.68 (0.52-1.04) mg/dL Estimated GFR > 60.0 (>60) mL/min BUN/Creatinine Ratio 23.5 H (6-22) Glucose 102 (80-110) mg/dL Calcium 8.9 (8.4-10.2) mg/dL Total Bilirubin 0.3 (0.2-1.3) mg/dL AST 31 (14-36) IU/L ALT 30 (<35) IU/L Alkaline Phosphatase 86 (38-126) U/L Total Creatine Kinase 46 (30-135) U/L CK-MB (CK-2) TNP CK-MB (CK-2) Rel Index TNP Troponin I < 0.012 (0.01-0.034) ng/mL NT-Pro-B Natriuret Pep 169 (<450) pg/mL Total Protein 6.3 (6.3-8.2) g/dL Albumin 3.5 (3.5-5.0) g/dL Globulin 2.8 (1.7-4.1) g/dL Albumin/Globulin Ratio 1.3 (1.0-2.8) SARS-CoV-2 (PCR) Negative (Negative) Urine Dip Bedside Urine Glucose Negative Bedside Urine Bilirubin - Negative Bedside Urine Ketone +/- 5 Urine Specific [place] 1.025 Bedside Urine Occult Blood +/- Bedside Urine pH 6.0 Bedside Urine Protein - Negative Bedside Urine Urobilinogen - Negative Bedside Urine Nitrite - Negative Bedside Urine Leukocytes - Negative Esterase Imaging Data Lumbar CT: Radiologist's Impression: NO acute findings MDM Narrative Medical decision making narrative: 85F repeat visit with worsening pain and redness of RLE despite appropriate outpatient therapy. Additionally she has felt feverish with chills and weakness. She requires hospitalization for cellulitis failing outpatient therapy and will need IV ABX and possible other further diagnostics Discharge Plan Departure Admit Date/Time: 12/17/20 01:06 Admit Provider: Jessenia Perez
[2020-12-17] VITALS (12 sets, daily range): BP systolic 134–161; BP diastolic 63–84; PULSE 58–76; RESP 16–19; TEMP 36.2–36.8; O2SAT 93–98; BMI 28.0
[2020-12-17 00:45] LABS: COVID19 - ADMIT (NP swab/PCR) Negative (Negative)
[2020-12-17] MEDS: VANCOMYCIN 1,250 MG/250 ML PIGGYBACK 250 MG IV (00:48)
--- NOTE | 2020-12-17 02:40 | P.HP_ITS ---
History of Present Illness History of Present Illness Date Patient Seen: 12/17/20 Time Patient Seen: 01:40 Chief complaint: thing with her knee is worse Narrative: Patient is a 85-year-old female Lolis Strickland presented to the ED for the 2nd time for evaluation pain, redness & swelling in her right lower extremity which is worsening. She had been seen on 12/12/20 at the walk in clinic and was then transported by EMS to the ED and evaluated a for complaints of R hip and leg pain after a recent fall due to syncope. She had a thorough evaluation including labs, hip Xray, head and Pelvis CT, RLE DVT study and all was reasuring. She was discharged with the diagnosis of hip pain and started on Keflex for suspected acute on chronic cellulitis. She does have evidence of chronic venous stasis but since that visit has developed a new, bright red, painful region at the superior edge of her Right lower leg in addition to her base line bilateral lower extremity edema secondary to diastolic congestive heart failure. The patient's right leg cellulitis is chronic and documentation is first noted on 09/20/2019. Additionally she states that the pain is travel ing up her leg and she feels feverish, with chills and generally unwell. She has been taking her medications as directed. Upon admit patient states pain is a 2/10 at this time she denies current fever, body aches, chills, nausea, headache, chest pain, or shortness of breath. Patient had been on Keflex for approximately 4 days prior to admit. Patient has a history of paroxysmal AFib, depression, diastolic heart failure with preserved ejection fraction, bipolar depression, hypothyroidism, hyperlipidemia, hypertension, and restless leg syndrome. Patient's workup on 12/12/2020 included a hip x-ray, vascular ultrasound, pelvic CT, head CT, and the patient had a lumbar spine CT done today all were unremarkable. Patient's blood count was within normal limits with the exception mild anemia HGB 11.4 and HCT 35.3, chemistry to also unremarkable. Patient being admitted for overnight observation for worsening right lower leg cellulitis. 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) Benign familial tremor Bipolar I disorder (05/22/13) Depression Diverticulosis of colon (05/22/13) Essential hypertension (05/22/13) Facial asymmetry Gastroesophageal reflux disease (05/22/13) Hyperlipidemia (05/22/13) Mitral regurgitation Paroxysmal atrial fibrillation Postoperative hypothyroidism (05/22/13) Pulmonary nodule Restless legs syndrome (05/22/13) Schatzki's ring Squamous cell carcinoma of skin of face (05/22/13) Tremor (05/22/13) Vitamin D deficiency Surgical History History of esophagogastroduodenoscopy (EGD) (~05/2006) History of thyroidectomy (~03/2005) Status post cholecystectomy (~12/2004) Status post colposcopy (~12/2008) Family & Social History Family History Father No problems noted. Mother No problems noted. Social History: household members patient lives with her spouse who has had a recent diagnosis of dementia. Prior Living Arrangements House lives independently Yes Safety & Behavioral: Feels Safe in Current Yes Environment Been Physically Hurt or No Threatened By a Person Suicidal Ideation Description None Suicide Plan Description No Plan Tobacco & Substance use: Smoking Status Never smoker alcohol intake never alcohol intake frequency 0-2 drinks per day Substance Use Type does not use Meds Home Medications and Allergies Home Medications Medication Instructions Recorded Confirmed Type nitroglycerin 0.4 mg sublingual 0.4 mg SL Q5M PRN 11/22/17 12/17/20 History tablet Women's One Daily 1 tab PO DAILY 12/09/17 12/17/20 History peg 400-propylene glycol 1 drp OPHTHALMIC (EYE) PRN PRN 12/09/17 12/17/20 History lactobacillus combination no.8 3 3,000 mmu cells PO DAILY #90 cap 03/13/18 12/17/20 Rx billion cell capsule PreserVision AREDS 1 cap PO BID 10/09/18 12/17/20 History amlodipine 10 mg tablet 10 mg PO DAILY #90 tab 03/21/20 12/17/20 Rx lansoprazole 30 mg capsule,delayed 30 mg PO DAILY #90 cap 06/17/20 12/17/20 Rx release metoprolol succinate 50 mg 50 mg PO DAILY #90 tab 06/17/20 12/17/20 Rx tablet,extended release 24 hr levothyroxine 100 mcg tablet 100 mcg PO DAILY #90 tab 07/30/20 12/17/20 Rx pramipexole 0.5 mg tablet 0.5 mg PO BID #180 tab 07/30/20 12/17/20 Rx furosemide 20 mg tablet 40 mg PO QPM #60 tab 09/22/20 12/17/20 Rx potassium chloride 10 mEq See Rx Instructions .ROUTE 12/05/20 12/17/20 Rx capsule,extended release .COMPLEX #90 cap cephalexin 500 mg PO TID 7 Days #21 cap 12/12/20 12/17/20 Rx Allergies Allergy/AdvReac Type Severity Reaction Status Date / Time amitriptyline [AMITRIPTYLINE] Allergy Unknown Verified 12/12/20 12:43 gabapentin [GABAPENTIN] Allergy Unknown Verified 12/12/20 12:43 ANESTHESIA DRUG AdvReac Mild UNSURE FOR Uncoded 09/20/19 14:44 THE NAME 05/31/14 Review of Systems Review of Systems ROS: Yes All systems reviewed with the patient and are negative except as otherwise documented Integumentary/Breasts Skin/Breast: Reports skin pain (Rt lower leg ) and Reports skin swelling Exam Vital Signs (past 8 hours): - 12/16/20 21:22 12/16/20 22:50 12/16/20 23:00 Temperature 97.7 F Pulse Rate 78 72 70 Respiratory Rate 17 Blood Pressure 176/83 H 163/74 H 162/73 H Pulse Oximetry 95 96 95 12/16/20 23:30 12/16/20 23:36 12/17/20 00:00 Temperature Pulse Rate 66 63 63 Respiratory Rate Blood Pressure 152/68 H 161/70 H Pulse Oximetry 94 97 94 12/17/20 01:15 Temperature 97.1 F L Pulse Rate 76 Respiratory Rate 18 Blood Pressure 158/70 H Pulse Oximetry 94 Oxygen Delivery Method Room Air Oxygen Flow Rate 0 Narrative Exam Narrative: General: Patient is a well-developed, well-nourished in no distress at this time. HEENT: Normocephalic, atraumatic, extraocular muscles intact, oral pharynx is clear and mucous membranes are moist. Neck is supple and symmetric, trachea is midline, no adenopathy, no thyroid enlargement, nontender, no masses palpated. Negative for JVD Chest: Normal AP diameter and contour without kyphoscoliosis, no nasal flaring, retractions, or tachypneic labored Lungs: Auscultation of all lung madden are clear without adventitious sounds, wheezes, rhonchi, or rales. Cardio: regular rate and rhythm without murmur, rubs, or gallops, no carotid bruit, no cardiac pulsations present. Abdomen: Soft nontender, negative for organomegaly, or masses. Bowel sounds are present in all 4 quadrants without guarding or rebound, no CVA tenderness. Musculoskeletal: Bilateral lower extremities circumferentially erythematous with evidence of chronic venous stasis, right lower extremity with acute change, bright red, tender at the proximal edge of chronic changes. radial and pedal pulses are normal. Skin: see above Neuro: Alert and orientated x3, sensation to touch intact, no gross deficits noted of cranial nerves. Psych: Patient has a well-kept appearance, appropriate affect, mental status attitude thought context and judgment are appropriate for age. Objective Labs Result Diagrams: 12/16/20 22:05 12/16/20 22:05 Labs: Laboratory Results - last 24 hr 12/16/20 12/16/20 12/16/20 22:05 22:05 22:05 WBC 8.5 RBC 4.13 Hgb 11.4 L Hct 35.3 L MCV 85.5 MCH 27.6 MCHC 32.3 RDW 15.7 H Plt Count 229 Neut % (Auto) 64.9 Lymph % (Auto) 23.3 L [place] % (Auto) 6.3 Eos % (Auto) 4.8 H Baso % (Auto) 0.7 Neut # (Auto) 5500 Lymph # (Auto) 2000 [place] # (Auto) 500 Eos # (Auto) 400 Baso # (Auto) 100 Sodium 140 Potassium 3.4 Chloride 108 H Carbon Dioxide 27 BUN 16 Creatinine 0.68 Estimated GFR > 60.0 BUN/Creatinine Ratio 23.5 H Glucose 102 Calcium 8.9 Magnesium 2.0 Total Bilirubin 0.3 AST 31 ALT 30 Alkaline Phosphatase 86 Total Creatine Kinase 46 CK-MB (CK-2) TNP CK-MB (CK-2) Rel Index TNP Troponin I < 0.012 NT-Pro-B Natriuret Pep 169 Total Protein 6.3 Albumin 3.5 Globulin 2.8 Albumin/Globulin Ratio 1.3 SARS-CoV-2 (PCR) 12/16/20 23:40 WBC RBC Hgb Hct MCV MCH MCHC RDW Plt Count Neut % (Auto) Lymph % (Auto) [place] % (Auto) Eos % (Auto) Baso % (Auto) Neut # (Auto) Lymph # (Auto) [place] # (Auto) Eos # (Auto) Baso # (Auto) Sodium Potassium Chloride Carbon Dioxide BUN Creatinine Estimated GFR BUN/Creatinine Ratio Glucose Calcium Magnesium Total Bilirubin AST ALT Alkaline Phosphatase Total Creatine Kinase CK-MB (CK-2) CK-MB (CK-2) Rel Index Troponin I NT-Pro-B Natriuret Pep Total Protein Albumin Globulin Albumin/Globulin Ratio SARS-CoV-2 (PCR) Negative Assessment & Plan Assessment & Plan narrative: 1. Cellulitis right lower extremity, worsening, acute on chronic, present on admission in the setting essential hypertension, acute on chronic, and diastolic heart failure with preserved ejection fraction(HFpEF) acute on chronic, present on admission -suspect possible chronic lymphedema due to hyperparathyroidism, chronic venous insufficiency, and possible undiagnosised pulmonary hypertension/sleep apnea. Patient has been referred to the sleep clinic to follow-up on evaluation for sl eep apnea but has not done so at this time. Patients chronic diastolic congestive heart failure with preserved ejection fraction is also a contributing factor. The patient amolodipine may also be a contributing to exacerbation. -echo ordered for tomorrow -rule out osteomyelitis, gas gangrene necrotizing fasciitis. Determine if infectious-blood cultures pending. -monitor for MRSA/sepsis, patient has had chronic right lower extremity cellulitis persistent since September of 2019 with recent progressive worsening clinical findings and signs/symptoms within 48 hours of oral antibiotics- Keflex. -TSH with reflex ordered to rule out thyroid disease. -ESR and CRP to help rule out osteomyelitis, (my suspicion is low) -elevate affected leg, ultrasound on 12/12 in the ED was negative for DVT-may consider CT with contrast to rule out abscess or deep infection if condition does not respond to IV antibiotics or continues to deteriorate.. -monitor for hyponatremia, elevated CPK or AST -wells criteria score: 0, Sofa score: 0 -patient for observation, vital signs q.4 hours, intake and output monitored Q shift, weight measure daily, diet: Regular, IV fluids:None -patient had a dose of vancomycin in the ED, ordered Rocephin 1gm Q24Hrs -daily labs ordered CBC, BMP, PT INR. Procalcitonin, Qam - if am cbc remain unchanged Stop Rocephin. Odered lasix 20mg IV [id number] tomorrow to see if any improvement in patient's peripheral edema - Hold home Amlodipine and consider medication change, Holding patients oral lasix 20mg dose. 2.Hypothyroidism, acquired, chronic, not present on admission -Ordered TSH with reflex - Continue home Levothyroxine 3. Paroxysmal atrial fibrillation, chronic, not present on admission EKG: I personally reviewed: Normal sinus rhythm with a ventricular rate of 67 with sinus arrhythmia and nonspecific ST and T-wave changes, EKG is unchanged from previous on 12/15/2020. -Pt has declined anticoagulation with PCP in the past. Will defer to PCP. Currently normal rate. 4. GERD, chronic, not present on admission - Continue home Pantoprazole 5. Restless leg syndrome, acute on chronic, not present on admission -continue patient's home Mirapex Code status: Full code surrogate decision maker: Daughter Nikki GARCIA PCR: Negative DVT/VTE prophylaxis: Lovenox 40mg Dispo: Pending improvement in LE swelling and erythema/cellulitis, and complet ion of Echo. Potential d/c tomorrow. Admitted under observation status. Scores GCS [place] coma scale eye opening: Spontaneous [place] coma scale verbal response: Orientated [place] coma scale motor response: Obey commands [place] coma scale total score: 15 CHADS-VASc Congestive heart failure: no Hypertension: yes Age 75 years or older: yes Diabetes mellitus: no Stroke, TIA, or TE: no Vascular disease: yes Age 65 to 74 years: no Sex category (female): Female CHADS-VASc Score: 5 SOFA PaO2/FIO2: >=400 mmHg Platelets: >= 150 Bilirubin: < 1.2 mg/dL Hypotension: MAP >= 70 mmHg [place] Coma Scale: 15 Renal: < 1.2 mg/dL SOFA Score: 0 Wells' Criteria for PE Clinical signs and symptoms of DVT: No PE is #1 Dx or equally likely: No Heart rate > 100: No Immobilization at least 3 days or surg in previous 4 weeks: No History of PE or DVT: No Hemoptysis: No Malignancy w/Treatment within 6 months or palliative: No Wells' PE Score total: 0 Quality MIPS - Admit I confirm the patient?s Advance Care Plan is present, Code status is documented, Surrogate decision maker is in patient?s record [If Yes, STOP here]: Yes
[2020-12-17] MEDS: SODIUM CHLORIDE 0.9% 1,000 ML 60 ML IV (03:10)
--- NOTE | 2020-12-17 03:59 | PC.ADMIT ---
[email or web address] [facility] Admission Note: Patient arrived to the unit via bed from the ED at 0115. Patient is A&O and denies currently having pain, unless with movement. Patient has 3+ edema noted in BLE with a red circular line around the calves marked with a black line. Minor blistering noted along red line as well. Patients belongs kept at bedside and medication was placed into patient drawer waiting for pharmacy to open. Patient was oriented to room and call light was within reach. The patient,Lolis Strickland,85 y/o, was given written information regarding hospital policies, unit procedures and contact persons. Patient's smoking status: Never smoker. Vital Signs - 8 hr 12/16/20 21:22 12/16/20 22:50 12/16/20 23:00 Temperature 97.7 F Pulse Rate 78 72 70 Respiratory Rate 17 Blood Pressure 176/83 H 163/74 H 162/73 H Pulse Oximetry 95 96 95 12/16/20 23:30 12/16/20 23:36 12/17/20 00:00 Temperature Pulse Rate 66 63 63 Respiratory Rate Blood Pressure 152/68 H 161/70 H Pulse Oximetry 94 97 94 12/17/20 01:15 12/17/20 01:17 Temperature 97.1 F L Pulse Rate 76 Respiratory Rate 18 Blood Pressure 158/70 H Pulse Oximetry 94 94
[2020-12-17 05:09] LABS: Add Manual Diff / Slide Review NO; Basophils Absolute Auto 100 /uL (0-100); Basophils Percent Auto 0.7 % (0-2); Eosinophils Absolute Auto 400 /uL (0-450); Eosinophils Percent Auto 4.8 % (2-4); Hematocrit 32.7 % (36-46); Hemoglobin 10.8 g/dL (12.0-16.0); Lymphocytes Absolute Auto 1900 /uL (1100-4500); Lymphocytes Percent Auto 24.6 % (25-40); Mean Corpuscular HGB Conc 33.1 % (30-36); Mean Corpuscular Hemoglobin 28.3 PG (26-34); Mean Corpuscular Volume 85.3 fL (80-100); Monocytes Absolute Auto 600 /uL (0-900); Monocytes Percent Auto 7.9 % (3-14); Neutrophils Absolute Auto 4800 /uL (1500-7000); Platelet Count 206 X10^3/uL (150-400); Red Blood Cell Count 3.83 X10^6/uL (4.0-5.2); Red Cell Distribution Width 15.6 % (11.6-14.8); White Blood Cell Count 7.8 X10^3/uL (4.5-11.0)
[2020-12-17 05:21] LABS: C-Reactive Protein Quant 1.8 mg/dL (<1.0)
[2020-12-17 05:47] LABS: TSH w/ Reflex to FT4 7.39 uIU/mL (0.47-4.68)
[2020-12-17 05:52] LABS: Erythrocyte Sedimentation Rate 30 MM/HR (0-20)
[2020-12-17] MEDS: PANTOPRAZOLE DR 20 MG TABLET PO (06:03)
[2020-12-17] MEDS: LEVOTHYROXINE 100 MCG TABLET PO (06:03)
[2020-12-17 06:18] LABS: Free T4, Direct Thyroxine 1.27 ng/dL (0.78-2.19)
[2020-12-17] MEDS: cefTRIAXone 1,000 MG in SODIUM CHLORIDE 0.9% 100 ML 200 ML IV (08:55)
[2020-12-17] MEDS: ENOXAPARIN 40 MG/0.4 ML SYRINGE SUBCUT (08:58)
[2020-12-17] MEDS: PANTOPRAZOLE DR 40 MG TABLET PO (08:59)
[2020-12-17] MEDS: DOCUSATE 100 MG CAPSULE PO ×2 (08:59→21:09)
[2020-12-17] MEDS: POTASSIUM CHLORIDE 10 MEQ TAB PO (08:59)
[2020-12-17] MEDS: PRAMIPEXOLE 0.25 MG TABLET 0.5 MG PO ×2 (08:59→21:09)
[2020-12-17] MEDS: METOPROLOL ER 50 MG TABLET PO (08:59)
[2020-12-17] MEDS: LOSARTAN 50 MG TABLET PO (09:08)
[2020-12-17] MEDS: DOXYCYCLINE HYCLATE 100 MG TABLET PO ×2 (10:17→21:09)
--- NOTE | 2020-12-17 10:19 | CM.DANOTE ---
Addendum entered by CAYETANO Paige 12/17/20 12:59: ADD: Per OT, feeling that pt could benefit from HH especially for her cellulitis and adema and medical needs likely more than for OT reasons. Pt is planning to call her close friend today to stay with them for a few days after d/c for additional assist as well. Based on SW conversation with pt earlier, she was open to HH and had no HH preference if HH was recommended. SW made Sig HH referral and faxed initial clinicals but F2F not signed yet and SW unable to go back bedside to discuss further with pt due to time constraints. Plan: SW to follow to confirm at d/c that HH still beneficial and MD to sign F2F and keep Sig HH updated. BF Original Note: Patient is an 85 year old female who was admitted on 12/17/20 today for Knee pain/Cellulitis. Pt has [employer] and [employer] for insurance and her PCP is Dr. Nicole Salinas. EMR was reviewed. Per MD, pt with recent GLF after syncope and hx of depression and edema from CHF and admitted for worsening R lower leg Cellulitis and Echo to r/o Osteomyelitis. Pt currently on IV-Abx. PT/OT ordered today and pending. SW met bedside with pt and explained role and pt confirms she still lives in [place] with her spouse Perfecto Oliver Sr and he was dx with dementia recently with worsening memory issues. Pt confirms that she is spouse's primary caregiver and currently no formal supportive services in place but states's spouse's Dtr is currently visiting from [place] and trying to help set up further in-home support and navigate their [employer] insurance before she is set to return to [place] in two days. Pt confirms that she is starting to get exhausted from caring for her spouse alone. Pt states she was set up with [facility] through her PCP and Dr. De La Torre Psychiatrist after her last hospital admission a couple years ago to help deal with spouse's son Perfecto Ghosh living with them and causing increased anxiety and stress. Pt states they helped her manage the stress and create a plan to have Perfecto Ghosh not live with them but come occasionally to visit and pt confirms that this has worked very well for all of them. Pt denies any hx of HH or SNF but states her spouse had both last year. Pt would be agreeable with HH if needed but barrier to SNF for herself is not having 24/7 care at home for her spouse if pt is in SNF. Pt denies completing any formal DPOA pwk but states Dtr Nikki Casillas [phone] is her primary contact and Nikki lives up near [facility] and is a caregiver to an elderly man and therefore supportive but has limited ability to provide physical assist at d/c. Plan: SW to follow closely for PT/OT eval toward determining d/c planning needs and likely at least HH for additional assist at discharge. CAYETANO Paige Discharge Planning/Care Management Advanced directive, confirm from FAMILY Start: 12/17/20 02:24 Freq: Q24H Status: Active Protocol: Document 12/17/20 02:24 JK (Rec: 12/17/20 02:52 JK [id number]) Advance Directive, confirm on record Time 01:20 Person contacted Patient Copy received No CM Discharge Assessment Start: 12/17/20 10:17 Freq: Status: Active Protocol: Document 12/17/20 10:17 BF (Rec: 12/17/20 10:19 BF [id number]) Discharge Planning Assessment Assigned Water Safety Teacher CAYETANO Barriga DPOA/Assigned Designee Name none formally, would be spouse but he is demented Advance Directives? No Advance Directives on File No History Provided By Patient,Medical Record Has Patient been admitted in last 30 No days? Prior Living Arrangements House Household Members spouse Type of transporation used prior to Drives own vehicle admit Independent with ADL's Yes: been having increased needs Is patient alert and oriented? Yes Needs Assistance With Home Chores / Shopping Caregiver for Another Yes: spouse with dementia Patient/Family Preference Home with Home Health Comment Pending PT/OT eval and recommendations Barriers to Discharge Yes Comment Pending PT/OT recommendations, SNF barriers are demented spouse who needs care at home Discharge Plan Home with Home Health Transportation Arrangement Spouse's Dtr here visiting and can likely transport at d/c if pt discharges by Thurs and safe for home Additional Comment Pending PT/OT eval Whiteboard Updated in Patient Room with Yes name and ext. # of Water Safety Teacher Review Status In Process Please Provide Date Initial DC 12/17/20 Assessment Was Performed Next Review Type Continued Stay Review
--- NOTE | 2020-12-17 11:32 | OT.IP.EVAL ---
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) Benign familial tremor Bipolar I disorder (05/22/13) Depression Diverticulosis of colon (05/22/13) Essential hypertension (05/22/13) Facial asymmetry Gastroesophageal reflux disease (05/22/13) Hyperlipidemia (05/22/13) Mitral regurgitation Paroxysmal atrial fibrillation Postoperative hypothyroidism (05/22/13) Pulmonary nodule Restless legs syndrome (05/22/13) Schatzki's ring Squamous cell carcinoma of skin of face (05/22/13) Tremor (05/22/13) Vitamin D deficiency Surgical History (Last Reviewed 12/17/20 @ 03:00 [facility] History of esophagogastroduodenoscopy (EGD) (~05/2006) History of thyroidectomy (~03/2005) Status post cholecystectomy (~12/2004) Status post colposcopy (~12/2008) Occupational Therapy Inpatient Evaluation/Re-Eval M1 PT/OT-IP Prior Functional Status Start: 12/17/20 12:08 Freq: NEEDED Status: Active Protocol: Document 12/17/20 12:08 [facility] (Rec: 12/17/20 12:37 [facility] [id number]) Medical Review Prior Functional Status Medical History Reviewed Yes Communication Independent. Mobility and Gait Pt states has been using a FWW since her fall on 12/12/20. Otherwise pt states for short distance in the house at times does not use the FWW. Activities of Daily Living and IADL's Pt states needs assist from her for socks/shoes at times due to pain /swelling in her feet. Social History Household Members spouse Living Arrangements House Number of Floors (Floors) One Floor Number of Stairs To Enter/Railing? 2 steps with right rail going up. Home Environment Standard Height Toilet,Walk in Shower Home Equipment Front Wheel Walker,Hand Held Shower,Grab Bars In Shower Additional Social History Comment Pt states has a built in seat and shower chair for the shower. Pt states has an adjustable bed at home. M2 OT-IP Current Condition Start: 12/17/20 12:08 Freq: Status: Active Protocol: Document 12/17/20 12:08 [facility] (Rec: 12/17/20 12:37 [facility] [id number]) Occupational Therapy Current Condition Current Condition Evaluation Date 12/17/20 Treatment Diagnosis Cellultis RLE, decreased mobility. Diagnosis Onset Date 12/17/20 M3 OT- IP Subjective and Pain Start: 12/17/20 12:08 Freq: Status: Active Protocol: Document 12/17/20 12:08 [facility] (Rec: 12/17/20 12:37 [facility] [id number]) OT- Subjective Occupational Therapy Visit Type Type Initial Evaluation Visit Start Time 10:56 Visit Stop Time 11:32 Total Visit Minutes 36 Occupational Therapy Visit Comments Patient Comments Pt agreed to get up for OT eval. Patient/Caregiver Goals TO go home. OT Pain Assessment Pain When Pain Assessed At Rest Pain Present Pain Present Pain Reported Location Right Hip Intensity 3 Scale Used Numeric (0 - 10) M4 OT- IP ADL's Start: 12/17/20 12:08 Freq: Status: Active Protocol: Document 12/17/20 12:08 [facility] (Rec: 12/17/20 12:37 [facility] [id number]) OT [id number] Comments OT Self-Feeding Comments NOt at meal time. OT ADL-Grooming Comments OT Grooming Comments Pt states did earlier. OT ADL-Dressing General Eval Lower Body Dressing Ability Maximum Assistance Areas Needing Assistance Socks Comments OT Dressing Comments Pt states her will be able to assist her for LB dressing needs. Did educated pt on possible use of data entry technician in the future if needed. OT ADL-Toileting Comments OT Toileting Comments Pt not having to go. Suggested to pt for use of pads at night as pt having difficulty to get out of bed at this time . OT ADL-Bathing Comments OT Bathing Comments NOt performed. M5 OT- IP IADL's Start: 12/17/20 12:08 Freq: Status: Active Protocol: Document 12/17/20 12:08 [facility] (Rec: 12/17/20 12:37 [facility] [id number]) OT-Instrumental Activities of Daily Living Home Safety Awareness Awareness of Need for Assistance at Home Good Awareness Ability to Problem Solve Emergency Able to Problem Solve Situations Medication Management Medication Management No Deficits Identified Money Management Money Management No Deficits Identified Meal Preparation Meal Preparation Comments Pt states to have a friend come over to stay and assist for her needs. Lean Specialist Lean Specialist Comments Pt states to have a friend come over to stay and assist for her needs. M6 OT- IP Functional Cognition Start: 12/17/20 12:08 Freq: Status: Active Protocol: Document 12/17/20 12:08 [facility] (Rec: 12/17/20 12:37 [facility] [id number]) Cognitive Factors Limiting Selfcare Function Cognitive Ability Level of Alertness Alert Patient Orientation Name,Age,Birthday,Month,Date, Year,Day of Week,Place, Situation Attention Span Ability Capable of Focused Attention, Capable of Sustained Attention Ability to Follow Commands Able to Follow One Step Commands Memory Description No Deficits Noted Safety Awareness No Deficits Noted Cognitive Comments Cognitive Assessment Comments Pt appears to be at baseline for cognitive needs. Pt has good awareness and looking to call friend to come and stay with her to assist with her needs. Pt however getting right and left side mixed up at times. OT- Vision and Hearing OT- Hearing Assessment OT- Hearing Assessment WFL OT- Vision Assessment Visual Acuity Glasses For Reading M7 OT- IP Mobility and Balance Start: 12/17/20 12:08 Freq: Status: Active Protocol: Document 12/17/20 12:08 [facility] (Rec: 12/17/20 12:37 [facility] [id number]) OT- Bed Mobility Assessment Rolling Level of Assistance Standby Assistance,Maximum Assistance Supine to Sit Supine to Sit Assist Standby Assistance Scooting Scooting to Edge of Bed Standby Assistance OT-Transfer Assessment Sit to and From Stand Sit to and from Stand Standby Assistance Transfers Transfer Ability Standby Assistance Technique Transfer Destination Bed,Chair Transfer Technique Stand Step Pivot Devices Transfer Assistive Devices Gait Belt,Front Wheeled Walker Comments Mobility Comments Pt usually gets out of the bed on the left and not able to lift her right leg up and had pt use a gait belt to assist and try to get off on the right side of the bed. Pt able to do with increased time. Suggested if possible to get out on the right side of the bed would be easier at this time, otherwise pt will need assist getting out of bed from the left at this time. OT- Gait Assessment Assistive Devices Assistive Device Gait Belt,Front Wheeled Walker Comments Gait Ability Comments SBA with FWW in the room. OT- Balance Assessment Sitting Balance and Reactions Static Sitting Balance Ability Good Dynamic Sitting Balance Ability Good Standing Balance and Reactions Static Standing Balance Ability Fair M8 OT- IP Objective Assessments Start: 06/02/21 12:08 Freq: Status: Active Protocol: Document 12/17/20 12:08 [facility] (Rec: 12/17/20 12:37 [facility] [id number]) OT Gross Range of Motion Upper Extremity Range of Motion Assessment Right Impaired ROM Impairments RUE 0-70 for shoulder flexion OT Strength Upper Extremity Strength Assessment Right Impaired OT- Coordination Assessment Comments Coordination Comments Pt has right hand tremors especially during exertion. M9 OT- IP Assessment and Plan Start: 12/17/20 12:08 Freq: Status: Active Protocol: Document 12/17/20 12:08 [facility] (Rec: 12/17/20 12:37 [facility] [id number]) OT Summary Assessment and Plan Potential Rehabilitation Potential Good Analytic Complexity at Evaluation Moderate Summary OT Impairments Pain,Strength,Balance, Functional Mobility,Dressing, Toileting,Bathing,Toilet Transfers,Shower Transfers, Activity Tolerance Progress Towards Goals Progressing Toward Goals,Slow Progress due to Pain,Slow Progress due to Medical Issues Assessment Summary Pt MOD complexity and main barriers are steps, is a caregiver to her , and now needing assist for bed mobility and ADl needs. Pt has good insight to her needs and looking to call and friend to be able to stay with her to assist for her care. Pt looking to go home when medically stable. Pt would benefit from home health medically and also to continue to work on increasing overall activity tolerance needs. Goals Grooming Goal Independent Dressing Goal Minimal Assistance Toileting Goal Independent Bathing Goal Independent Toilet Transfer Goal Independent Shower Transfer Goal Independent Days to Meet Goals 5 Frequency of Treatment Frequency Of Treatment Once a Day Treatment Plan OT Treatment Plan ADL Training,Functional Mobility,Patient/Family Education,Discharge Planning Other Treatment Recommendations and Next Stand at sink for grooming Treatment Focus needs. Discharge Recommendations OT Discharge Recommendations Home with Assistance,Home Health Transportation Needs at Discharge Private Vehicle
--- NOTE | 2020-12-17 14:15 | PT.IIE ---
Surgical History (Last Reviewed 12/17/20 @ 03:00 [facility] History of esophagogastroduodenoscopy (EGD) (~05/2006) History of thyroidectomy (~03/2005) Status post cholecystectomy (~12/2004) Status post colposcopy (~12/2008) Medical History (Last Reviewed 12/17/20 @ 03:00 by CHIKI Leon) (HFpEF) heart failure with preserved ejection fraction 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) Benign familial tremor Bipolar I disorder (05/22/13) Depression Diverticulosis of colon (05/22/13) Essential hypertension (05/22/13) Facial asymmetry Gastroesophageal reflux disease (05/22/13) Hyperlipidemia (05/22/13) Mitral regurgitation Paroxysmal atrial fibrillation Postoperative hypothyroidism (05/22/13) Pulmonary nodule Restless legs syndrome (05/22/13) Schatzki's ring Squamous cell carcinoma of skin of face (05/22/13) Tremor (05/22/13) Vitamin D deficiency Physical Therapy Inpatient Evaluation/Re-Eval M1 PT/OT-IP Prior Functional Status Start: 12/17/20 12:08 Freq: NEEDED Status: Active Protocol: Document 12/17/20 14:15 [facility] (Rec: 12/17/20 15:50 [facility] [id number]) Medical Review Prior Functional Status Medical History Reviewed Yes Communication able to make needs known Mobility and Gait pt stated that prior to fall ( ~6days ago), she was independent with all mobilities and ambulation without AD but has been using a FWW since fall Activities of Daily Living and IADL's per OT note:Pt states needs assist from her for socks/shoes at times due to pain /swelling in her feet. Social History Household Members spouse Living Arrangements House Number of Floors (Floors) One Floor Number of Stairs To Enter/Railing? has 2 steps from the garage with R side bar on door frame has 1 steps from the front with R side bar on door frame Home Environment Standard Height Toilet,Walk in Shower,Built-In Shower Seat Home Equipment Front Wheel Walker,Hand Held Shower,Grab Bars Near Toilet, Grab Bars In Shower Additional Social History Comment pt has an adjustable bed at home pt stated that spouse will not be able to assist her but her friend who is a SCIENTIFIC INFORMATICS LEADER will be able to stay with her for 3-4 days to assist M2 PT-IP Current Condition Start: 12/17/20 15:27 Freq: NEEDED Status: Active Protocol: Document 12/17/20 14:15 [facility] (Rec: 12/17/20 15:50 AB [id number]) Physical Therapy Current Condition Current Condition Evaluation Date 12/17/20 Treatment Diagnosis LE cellulitis; difficulty in walking Onset Date 12/17/20 Precautions Other Precautions falls M3 PT-IP Subjective Start: 12/17/20 15:27 Freq: NEEDED Status: Active Protocol: Document 12/17/20 14:15 [facility] (Rec: 12/17/20 15:50 AB [id number]) Subjective Physical Therapy Visit Type Type Initial Evaluation Visit Start Time 14:15 Visit Stop Time 15:00 Total Visit Minutes 45 Number of ELECTRIC TRANSFER OPERATOR Visits 0 Physical Therapy Visit Comments Patient Comments pt is agreeable to do PT Therapy Pain Assessment Pain When Pain Assessed At Rest Pain Present Pain Present Pain Reported Location Right Hip Intensity 2 Scale Used Numeric (0 - 10) Pain Management Techniques Distraction,Modification of Treatment,Re-positioning, Timing of Activity with Medications M4 PT-IP Mobility and Gait Start: 12/17/20 15:27 Freq: NEEDED Status: Active Protocol: Document 12/17/20 14:15 AB (Rec: 12/17/20 15:50 AB [id number]) PT-Bed Mobility Assessment Supine to Sit Supine to Sit Minimal Assistance Sit to Supine Sit to Supine Maximum Assistance,1 Person Assistance PT-Transfer Assessment Sit to and From Stand Sit to and from Stand Minimal Assistance Equipment Transfer Assistive Device Gait Belt,Front Wheeled Walker Orthotic/Prosthetic Devices or Brace: No Transfers Transfer Destination Bed Transfer Technique ambulated using FWW Transfer Ability Level of Assist Minimal Assistance,Moderate Assistance,1 Person Assistance ,Use of Upper Extremities Comments Mobility Comments pt seated on chair and agreed to do PT. MMT tested and pt initially unable to do DF on RLE and with increase truncal tremors but when instructed pt to do feet tapping, pt was able to complete on R foot. attempted to check R hip flexion and pt unable to move RLE to do hip flexion, but when instructed to do seated marching, pt was able to complete. attempted to assess R knee extension and pt unable to move R knee in extension but able to keep and hold knee in extension after PT positioned knee in extension. pt with poor motor planning affecting mobility. increase head/trunk tremors with movement of LE. completed sit to stand min to mod A and cues. ambulated in room ~ 15 ft min A using FWW and no foot drop noted. pt completed sit to supine max A with LE elevation and max cues and supine to sit min A and cues. pt requested to stay in bed afterwards. max A for sit to supine. positioned pt in bed. call light and table placed within reach. Gait Assessment Gait Distance (Feet) 15 Able to Maintain Weight Bearing Status Yes During Gait Assistive Devices Assistive Device Gait Belt,Front Wheeled Walker Orthotic/Prosthetic Devices or Brace: No Gait Deviations General Gait Pattern Antalgic,Decreased Stride Length,Decreased Feet Clearance,Step-to Gait Factors Limiting Gait Function Factors Limiting Gait Function Decreased Activity Tolerance, Decreased Strength,Difficulty Following Directions,Pain,Poor Balance,Poor Safety Awareness Comments Gait Comments pls refer to mobility section for details PT-Balance Assessment Sitting Balance and Reactions Static Sitting Balance Ability Good Dynamic Sitting Balance Ability Good Standing Balance and Reactions Static Standing Balance Ability Fair Dynamic Standing Balance Ability Fair Device Used FWW M5 PT-IP Objective Assessments Start: 12/17/20 15:27 Freq: NEEDED Status: Active Protocol: Document 12/17/20 14:15 AB (Rec: 12/17/20 15:50 AB [id number]) Orientation Orientation/Cognition Level of Alertness Alert Orientation Name,Place,Situation Language Function Ability Hard of Hearing Safety Awareness Decreased Safety Awareness Memory Description Short Term Impaired Gross Range of Motion Lower Extremity ROM Assessment Within Functional Limits Strength Comments Strength Comments unable to assessed due to pt's decrease motor planning and with conflicting findings Sensation Assessment Sensation Gross Sensation Right LE Impaired,Left LE Impaired Sensation Description Numbness,Tingling Comments Sensation Comments stated that she has peripheral neuropathy and can feel LE but not 100% Muscle Tone Muscle Tone WNL Yes Other Assessments Other Other Assessments has head/trunk intention tremors M6 PT-IP Treatment Start: 12/17/20 15:27 Freq: NEEDED Status: Active Protocol: Document 12/17/20 14:15 AB (Rec: 12/17/20 15:50 AB [id number]) Physical Therapy Treatment Education Education Provided Safety M7 PT-IP Assessment and Plan Start: 12/17/20 15:27 Freq: NEEDED Status: Active Protocol: Document 12/17/20 14:15 AB (Rec: 12/17/20 15:50 AB [id number]) PT Summary Assessment and Plan Potential Rehabilitation Potential Good Status of Condition at Evaluation Evolving Summary Impairments Pain,ROM,Strength,Balance, Coordination,Sensation,Tone, Cognition,Bed Mobility, Transfers,Gait,Activity Tolerance Assessment Summary pt requiring min to mod A with transfers/ambulation using FWW and max A with bed mobility. pt stated that spouse will not be able to assist her but her friend that is a SCIENTIFIC INFORMATICS LEADER will be able to stay with her for 3-4 days to assist her. informed pt regarding caregiver training and will talk to her friend if she can come in for training. will continue to assess progress. Goals Bed Mobility Goal Independent Transfer Goal Independent,Front Wheeled Walker Gait Goal Independent,Front Wheel Walker Gait Distance 150 Other Goals up/down 1 step using FWW SBA Days to Meet Goals 10 Frequency of Treatment Frequency Of Treatment Once a Day Treatment Plan Physical Therapy Treatment Plan Bed Mobility Training,Transfer Training,Gait Training, Therapeutic Exercise,Balance Retraining,Discharge Planning, Hot or Cold Pack,Neuromuscular Re-ed,Coordination Retraining Precautions Other Precautions falls Recommendations To Nursing Amount of Assist Needed 1 Person Assist Discharge Recommendations PT Discharge Recommendations Home with 07/02 Assist Available,Home Health,SNF Rehab,Home vs SNF Transportation Needs at Discharge Private Vehicle,Wheelchair/ Cabulance
[2020-12-17] MEDS: SENNOSIDES 8.6 MG TABLET 17.2 MG PO (21:08)
[2020-12-18] VITALS (9 sets, daily range): BP systolic 133–171; BP diastolic 62–79; PULSE 58–67; RESP 14–20; TEMP 36.2–36.9; O2SAT 94–98
[2020-12-18] MEDS: LEVOTHYROXINE 112 MCG TABLET PO (06:53)
[2020-12-18] MEDS: PANTOPRAZOLE DR 40 MG TABLET PO (06:53)
[2020-12-18] MEDS: DOCUSATE 100 MG CAPSULE PO ×2 (09:46→21:00)
[2020-12-18] MEDS: ENOXAPARIN 40 MG/0.4 ML SYRINGE SUBCUT (09:46)
[2020-12-18] MEDS: LOSARTAN 50 MG TABLET PO (09:46)
[2020-12-18] MEDS: POTASSIUM CHLORIDE 10 MEQ TAB PO (09:46)
[2020-12-18] MEDS: METOPROLOL ER 50 MG TABLET PO (09:46)
[2020-12-18] MEDS: cefTRIAXone 1,000 MG in SODIUM CHLORIDE 0.9% 100 ML 200 ML IV (09:46)
[2020-12-18] MEDS: DOXYCYCLINE HYCLATE 100 MG TABLET PO ×2 (09:51→21:00)
--- NOTE | 2020-12-18 10:07 | OT.IP.TRT ---
Current Diagnoses Cellulitis of right lower limb (12/17/20) Occupational Therapy Treatment Note M2 OT-IP Current Condition Start: 12/17/20 12:08 Freq: Status: Active Protocol: Document 12/17/20 12:08 [facility] (Rec: 12/17/20 12:37 [facility] [id number]) Occupational Therapy Current Condition Current Condition Evaluation Date 12/17/20 Treatment Diagnosis Cellultis RLE, decreased mobility. Diagnosis Onset Date 12/17/20 M3 OT- IP Subjective and Pain Start: 12/17/20 12:08 Freq: Status: Active Protocol: Document 12/18/20 10:37 [facility] (Rec: 12/18/20 10:44 [facility] [id number]) OT- Subjective Occupational Therapy Visit Type Type Treatment Note Visit Start Time 09:10 Visit Stop Time 10:07 Total Visit Minutes 27 Notes Pt seen for split treatment [id number] and [id number]. Occupational Therapy Visit Comments Patient Comments Pt wanting to use the bathroom . Patient/Caregiver Goals TO go home. OT Pain Assessment Pain When Pain Assessed At Rest Pain Present Pain Present Denied Pain M4 OT- IP ADL's Start: 12/17/20 12:08 Freq: Status: Active Protocol: Document 12/18/20 10:37 [facility] (Rec: 12/18/20 10:44 [facility] [id number]) OT ADL-Grooming General Evaluation Grooming Ability Standby Assistance Areas Needing Assistance Retrieving/Set-up of Grooming Items OT ADL-Oral Care General Eval Oral Care Ability Independent OT ADL-Toileting General Evaluation Toileting Ability Standby Assistance M5 OT- IP IADL's Start: 12/17/20 12:08 Freq: Status: Active Protocol: Document 12/17/20 12:08 [facility] (Rec: 12/17/20 12:37 [facility] [id number]) OT-Instrumental Activities of Daily Living Home Safety Awareness Awareness of Need for Assistance at Home Good Awareness Ability to Problem Solve Emergency Able to Problem Solve Situations Medication Management Medication Management No Deficits Identified Money Management Money Management No Deficits Identified Meal Preparation Meal Preparation Comments Pt states to have a friend come over to stay and assist for her needs. Superintendent Generating Plant Superintendent Generating Plant Comments Pt states to have a friend come over to stay and assist for her needs. OT- Vision and Hearing OT- Hearing Assessment OT- Hearing Assessment WFL OT- Vision Assessment Visual Acuity Glasses For Reading M7 OT- IP Mobility and Balance Start: 12/17/20 12:08 Freq: Status: Active Protocol: Document 12/18/20 10:37 [facility] (Rec: 12/18/20 10:44 [facility] [id number]) OT- Bed Mobility Assessment Supine to Sit Supine to Sit Assist Independent Sit to Supine Sit to Supine Assist Independent Scooting Scooting to Edge of Bed Independent OT-Transfer Assessment Sit to and From Stand Sit to and from Stand Standby Assistance Transfers Transfer Ability Standby Assistance Technique Transfer Destination Bed,Chair,Toilet Transfer Technique Stand Step Pivot Devices Transfer Assistive Devices Gait Belt,Front Wheeled Walker Comments Mobility Comments Pt today having no difficulties to get out of the bed on the left side. Pt able to walk with FWW SBA to and from the bathroom with good safety. OT- Gait Assessment Assistive Devices Assistive Device Gait Belt,Front Wheeled Walker Comments Gait Ability Comments SBA with FWW in the room. OT- Balance Assessment Sitting Balance and Reactions Static Sitting Balance Ability Normal Dynamic Sitting Balance Ability Good Standing Balance and Reactions Static Standing Balance Ability Good Dynamic Standing Balance Ability Fair M8 OT- IP Objective Assessments Start: 12/17/20 12:08 Freq: Status: Active Protocol: Document 12/17/20 12:08 [facility] (Rec: 12/17/20 12:37 [facility] [id number]) OT Gross Range of Motion Upper Extremity Range of Motion Assessment Right Impaired ROM Impairments RUE 0-70 for shoulder flexion OT Strength Upper Extremity Strength Assessment Right Impaired OT- Coordination Assessment Comments Coordination Comments Pt has right hand tremors especially during exertion. M9 OT- IP Assessment and Plan Start: 12/17/20 12:08 Freq: Status: Active Protocol: Document 12/18/20 10:37 [facility] (Rec: 12/18/20 10:44 [facility] [id number]) OT Summary Assessment and Plan Potential Rehabilitation Potential Good Analytic Complexity at Evaluation Moderate Summary OT Impairments Pain,Strength,Balance, Functional Mobility,Dressing, Bathing,Shower Transfers Progress Towards Goals Progressing Toward Goals Assessment Summary Pt doing much better today and even able to shower with nursing aid. Able to go over energy conservation needs with pt and pt states good understanding and her has already ordered a 4ww for her to use at home. In addition, pt to have a friend stay with her for several days to assist with any needs. Pt to go home with assist when medically stable. Goals Grooming Goal Independent Dressing Goal Minimal Assistance Toileting Goal Independent Bathing Goal Independent Toilet Transfer Goal Independent Shower Transfer Goal Independent Days to Meet Goals 3 Treatment Plan OT Treatment Plan ADL Training,Functional Mobility,Patient/Family Education,Discharge Planning Other Treatment Recommendations and Next LB dressing needs Treatment Focus Discharge Recommendations OT Discharge Recommendations Home with Assistance,Home Health Transportation Needs at Discharge Private Vehicle
[2020-12-18] MEDS: PRAMIPEXOLE 0.25 MG TABLET 0.5 MG PO ×2 (10:26→21:00)
[2020-12-18 10:27] LABS: Hematocrit 35.2 % (36-46); Hemoglobin 11.6 g/dL (12.0-16.0)
--- NOTE | 2020-12-18 11:16 | CM.DPC ---
DCP: continued: case received, EMR reviewed. Discussed in Team Rounds. Hospitalist Dr. Gramajo is on today and POC remains unclear in terms of the antibiotic. See that pt lives with her with new dx of dementia. Her daughter is here for what sounds like 2 days and with a plan for a BOILER OPERATOR friend to stay. Will need to sort out the plan with pt once have a clearer idea from Dr. Gramajo re the POC going forward. Medicare and [employer]: payers INPT admission status: 12/17: confirmed by KRISTIE RN
--- NOTE | 2020-12-18 11:56 | PT.IPTN ---
Current Diagnoses Cellulitis of right lower limb (12/17/20) Physical Therapy Treatment Note M2 PT-IP Current Condition Start: 12/17/20 15:27 Freq: NEEDED Status: Active Protocol: Document 12/17/20 14:15 AB (Rec: 12/17/20 15:50 AB [id number]) Physical Therapy Current Condition Current Condition Evaluation Date 12/17/20 Treatment Diagnosis LE cellulitis; difficulty in walking Onset Date 12/17/20 Precautions Other Precautions falls M3 PT-IP Subjective Start: 12/17/20 15:27 Freq: NEEDED Status: Active Protocol: Document 12/18/20 11:18 CLB (Rec: 12/18/20 12:48 CLB [id number]) Subjective Physical Therapy Visit Type Type Treatment Note Visit Start Time 11:33 Visit Stop Time 11:56 Total Visit Minutes 23 Number of CHEMICAL COMPOUNDER Visits 1 Physical Therapy Visit Comments Patient Comments pt is agreeable to do PT Therapy Pain Assessment Pain When Pain Assessed At Rest Pain Present Pain Present Pain Reported Location Right Hip Intensity 2 Scale Used Numeric (0 - 10) Pain Management Techniques Distraction,Modification of Treatment,Re-positioning, Timing of Activity with Medications M4 PT-IP Mobility and Gait Start: 12/17/20 15:27 Freq: NEEDED Status: Active Protocol: Document 12/18/20 11:18 CLB (Rec: 12/18/20 12:48 CLB [id number]) PT-Transfer Assessment Sit to and From Stand Sit to and from Stand Standby Assistance,1 Person Assistance Equipment Transfer Assistive Device Gait Belt,Front Wheeled Walker Orthotic/Prosthetic Devices or Brace: No Transfers Transfer Destination Chair,Toilet Transfer Technique ambulated using FWW Transfer Ability Level of Assist Standby Assistance,1 Person Assistance,Use of Upper Extremities Comments Mobility Comments Pt requring SBA for sit-stand from chair. pt ambulated in hanna to therapy stairs with assist with IV pole. Pt ambulates with small step thru gait pattern and good safety awareness. Pt climbed platform step with FWW CGA. Pt ambulated back to room using BR SBA and SBA for standing balance while washing hands. Pt returned to chair SBA. Pt left in chair with chair alarm on and all needs within reach . Gait Assessment Gait Gait Assistance Required: Standby Assistance,1 Person Assist Distance (Feet) 200 Able to Maintain Weight Bearing Status Yes During Gait Assistive Devices Assistive Device Gait Belt,Front Wheeled Walker Orthotic/Prosthetic Devices or Brace: No Gait Deviations General Gait Pattern Antalgic,Decreased Stride Length,Decreased Feet Clearance,Step-to Gait Factors Limiting Gait Function Factors Limiting Gait Function Decreased Activity Tolerance, Decreased Strength,Difficulty Following Directions,Pain,Poor Balance,Poor Safety Awareness Comments Gait Comments pls refer to mobility section for details Stair Climbing Assessment Evaluation Level of Assist On Stairs Contact Guard Assistance Devices Stair Climbing Assistive Devices Front Wheel Walker Technique/Endurance Stair Climbing Direction Ascend and Descend Stair Climbing Technique Step to Step Number of Steps Climbed 1 Stair Climbing Set # Repetitions (reps) 1 M5 PT-IP Objective Assessments Start: 12/17/20 15:27 Freq: NEEDED Status: Active Protocol: Document 12/17/20 14:15 AB (Rec: 12/17/20 15:50 AB [id number]) Orientation Orientation/Cognition Level of Alertness Alert Orientation Name,Place,Situation Language Function Ability Hard of Hearing Safety Awareness Decreased Safety Awareness Memory Description Short Term Impaired Gross Range of Motion Lower Extremity ROM Assessment Within Functional Limits Strength Comments Strength Comments unable to assessed due to pt's decrease motor planning and with conflicting findings Sensation Assessment Sensation Gross Sensation Right LE Impaired,Left LE Impaired Sensation Description Numbness,Tingling Comments Sensation Comments stated that she has peripheral neuropathy and can feel LE but not 100% Muscle Tone Muscle Tone WNL Yes Other Assessments Other Other Assessments has head/trunk intention tremors M6 PT-IP Treatment Start: 12/17/20 15:27 Freq: NEEDED Status: Active Protocol: Document 12/17/20 14:15 AB (Rec: 12/17/20 15:50 AB [id number]) Physical Therapy Treatment Education Education Provided Safety M7 PT-IP Assessment and Plan Start: 12/17/20 15:27 Freq: NEEDED Status: Active Protocol: Document 12/18/20 11:18 CLB (Rec: 12/18/20 12:48 CLB [id number]) PT Summary Assessment and Plan Potential Rehabilitation Potential Good Status of Condition at Evaluation Evolving Summary Impairments Pain,ROM,Strength,Balance, Coordination,Sensation,Tone, Cognition,Bed Mobility, Transfers,Gait,Activity Tolerance Progress Towards Goals Progressing Toward Goals Assessment Summary Pt improving with all mobility requiring SBA for sit<>stand and ambulation and CGA for stair climbing. Pt with improved activity tolerance ambulating ~200ft. Goals Bed Mobility Goal Independent Transfer Goal Independent,Front Wheeled Walker Gait Goal Independent,Front Wheel Walker Gait Distance 150 Other Goals up/down 1 step using FWW SBA Days to Meet Goals 10 Frequency of Treatment Frequency Of Treatment Once a Day Treatment Plan Physical Therapy Treatment Plan Bed Mobility Training,Transfer Training,Gait Training, Therapeutic Exercise,Balance Retraining,Discharge Planning, Hot or Cold Pack,Neuromuscular Re-ed,Coordination Retraining Precautions Other Precautions falls Recommendations To Nursing Amount of Assist Needed 1 Person Assist Discharge Recommendations PT Discharge Recommendations Home with 24/ Assist Available,Home Health Transportation Needs at Discharge Private Vehicle
--- NOTE | 2020-12-18 18:04 | PM.PN.1 ---
Subjective Subjective Date Patient Seen: 12/18/20 Interval history: Patient is 85-year-old female with chronic venous stasis admitted with bilateral lower extremity cellulitis. She states her legs are less painful since started on antibiotics. Exam Vital Signs (past 8 hours): - 12/18/20 12:15 12/18/20 15:46 12/18/20 17:11 Temperature 97.4 F L 97.5 F L Pulse Rate 64 58 L Respiratory Rate 14 15 Blood Pressure 171/73 H 157/79 H Pulse Oximetry 97 98 98 Oxygen Delivery Method Room Air Oxygen Flow Rate 0 Narrative Exam Narrative: General: Alert and pleasant female in no acute distress Extremities: No real change in appearance of legs with chronic venous stasis and diffuse erythema of bilateral lower extremities, cobblestoning appearance of skin, and erythematous rim on superior margin below the knees Objective Labs Result Diagrams: 12/18/20 10:05 12/16/20 22:05 Labs: Laboratory Results - last 24 hr 12/18/20 10:05 Hgb 11.6 L Hct 35.2 L PFSH Medical History (Updated 12/17/20 @ 06:59 by oCry Carter DO) (HFpEF) heart failure with preserved ejection fraction 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) Benign familial tremor Bipolar I disorder (05/22/13) Depression Diverticulosis of colon (05/22/13) Essential hypertension (05/22/13) Facial asymmetry Gastroesophageal reflux disease (05/22/13) Hyperlipidemia (05/22/13) Mitral regurgitation Paroxysmal atrial fibrillation Postoperative hypothyroidism (05/22/13) Pulmonary nodule Restless legs syndrome (05/22/13) Schatzki's ring Squamous cell carcinoma of skin of face (05/22/13) Tremor (05/22/13) Vitamin D deficiency Surgical History History of esophagogastroduodenoscopy (EGD) (~05/2006) History of thyroidectomy (~03/2005) Status post cholecystectomy (~12/2004) Status post colposcopy (~12/2008) Family History Father No problems noted. Mother No problems noted. Social History marital status: household members: spouse lives independently: Yes occupational status: other Smoking Status: Never smoker alcohol intake: never substance use type: does not use Assessment & Plan Assessment & Plan narrative: 1. Possible cellulitis of bilateral lower extremities associated with venous stasis -afebrile with normal WBC -continue Rocephin and doxycycline for treatment of strep and staph bacteria -continue furosemide 40 mg q.p.m. for venous stasis 2. Chronic hypertension -discontinued amlodipine due to possible etiology or contributor to lower extremity edema -losartan 50 mg p.o. q.d. and continue metoprolol per home routine 3. Hypothyroidism -mildly elevated TSH on thyroid replacement -increase levothyroxine from 100 to 112 mcg daily 4. Right hip pain secondary to DJD -patient complain of hip pain after recent fall, had pelvic and lumbar CT in ED negative for fracture but showing significant arthritis -Tylenol as needed -PT/OT consult 5. Paroxysmal atrial fibrillation, chronic, not present on admission -per report, patient has declined anticoagulation in the past 6. GERD, chronic -continue pantoprazole 7. Restless leg syndrome -continue Mirapex per home routine Code status: Full code surrogate decision maker: Daughter Nikki GARCIA PCR: Negative DVT/VTE prophylaxis: Lovenox 40mg
[2020-12-18] MEDS: SENNOSIDES 8.6 MG TABLET 17.2 MG PO (20:59)
[2020-12-18] MEDS: SODIUM CHLORIDE 0.9% FLUSH 10 ML IV (21:00)
[2020-12-19] MEDS: FUROSEMIDE 40 MG TABLET PO (00:35)
[2020-12-19 01:00] VITALS: O2SAT 97
[2020-12-19 03:45] VITALS: BP 155/75; PULSE 65; RESP 16; TEMP 36.6; O2SAT 94
--- NOTE | 2020-12-19 04:49 | PC.NURSE ---
Patient had requested her home med furosemide to be given. Spoke with hospitalist, and was told to order and give. Patient states she takes it at night since she is usually up all night with her . This was ordered and given earlier in my shift.
[2020-12-19 05:00] VITALS: O2SAT 94
[2020-12-19] MEDS: LEVOTHYROXINE 112 MCG TABLET PO (06:28)
[2020-12-19] MEDS: PANTOPRAZOLE DR 40 MG TABLET PO (06:28)
[2020-12-19 07:27] VITALS: BP 152/72; PULSE 64; RESP 16; TEMP 36.8; O2SAT 94
[2020-12-19] MEDS: cefTRIAXone 1,000 MG in SODIUM CHLORIDE 0.9% 100 ML 200 ML IV (08:26)
[2020-12-19] MEDS: ENOXAPARIN 40 MG/0.4 ML SYRINGE SUBCUT (08:29)
[2020-12-19] MEDS: POTASSIUM CHLORIDE 10 MEQ TAB PO (08:30)
[2020-12-19] MEDS: METOPROLOL ER 50 MG TABLET PO (08:30)
[2020-12-19] MEDS: DOCUSATE 100 MG CAPSULE PO (08:30)
[2020-12-19] MEDS: DOXYCYCLINE HYCLATE 100 MG TABLET PO (08:30)
[2020-12-19] MEDS: LOSARTAN 50 MG TABLET PO (08:30)
[2020-12-19] MEDS: PRAMIPEXOLE 0.25 MG TABLET 0.5 MG PO (08:30)
[2020-12-19] MEDS: SODIUM CHLORIDE 0.9% FLUSH 10 ML IV (08:31)
--- NOTE | 2020-12-19 11:26 | PC.NURSE ---
Assess- Patient has redness and edema to bilateral lower extremities and her skin is taut and tight. Given iv antibiotic this morning, patient is going to discharge as soon as her ride gets here. Oral antibiotics sent to [facility] and patient will pick them up.
--- NOTE | 2020-12-19 11:28 | OT.IPNOTE ---
Pt is dressed and ready for discharge. No OT intervention at this time.
--- NOTE | 2020-12-19 11:31 | PC.NURSE ---
Patient given discharge paperwork, educated on material including new medications and activity. Patient verbalized understanding and denied any further questions. Home medications returned to patient. R AC IV discontinued, catheter intact, patient tolerated well. Denied any further needs at this time. Awaiting ride.
--- NOTE | 2020-12-19 12:11 | CM.DPC ---
DCP: continued: pt with a d/c to home order. Discussed in Team Rounds with Dr. Gramajo stating no reason that he could see for HH services. Met then with pt in followup. Pt confirms that she is pleased to be going home and that her friend, a caregiver, will be staying with her to help out with her for a few days. She clarifies that daughter Nikki Stevens did check in with her but that Nikki's daughter is currently in hospital in [place] and thus Nikki is mostly at the bedside there. She says her 's 2 daughters were here from [place] but sounds like they have returned. Pt's son lives here in [place] and is currently staying at the house with his father, pt's . Pt denies any need for HH for herself. She says she is working on their LTC insurance policy which should be active in a month and that she and family are well aware that the current system of her as primary caregiver for her is not sustainable. As for herself, pt says her focus at this time is getting to the root of the skin issues affecting both legs. She will follow up with Dr. Salinas but says that her intention is to see a spin tank tender for further info and treatment plan options.
--- NOTE | 2020-12-19 12:23 | PM.DS.1 ---
History of Present Illness History of Present Illness Chief complaint: thing with her knee is worse Narrative: Patient is a 85-year-old female Lolis Strickland presented to the ED for the 2nd time for evaluation pain, redness & swelling in her right lower extremity which is worsening. She had been seen on 12/12/20 at the walk in clinic and was then transported by EMS to the ED and evaluated a for complaints of R hip and leg pain after a recent fall due to syncope. She had a thorough evaluation including labs, hip Xray, head and Pelvis CT, RLE DVT study and all was reasuring. She was discharged with the diagnosis of hip pain and started on Keflex for suspected acute on chronic cellulitis. She does have evidence of chronic venous stasis but since that visit has developed a new, bright red, painful region at the superior edge of her Right lower leg in addition to her base line bilateral lower extremity edema secondary to diastolic congestive heart failure. The patient's right leg cellulitis is chronic and documentation is first noted on 09/20/2019. Additionally she states that the pain is traveling up her leg and she feels feverish, with chills and generally unwell. She has been taking her medications as directed. Upon admit patient states pain is a 2/10 at this time she denies current fever, body aches, chills, nausea, headache, chest pain, or shortness of breath. Patient had been on Keflex for approximately 4 days prior to admit. Patient has a history of paroxysmal AFib, depression, diastolic heart failure with preserved ejection fraction, bipolar depression, hypothyroidism, hyperlipidemia, hypertension, and restless leg syndrome. Patient's workup on 12/12/2020 included a hip x-ray, vascular ultrasound, pelvic CT, head CT, and the patient had a lumbar spine CT done today all were unremarkable. Patient's blood count was within normal limits with the exception mild anemia HGB 11.4 and HCT 35.3, chemistry to also unremarkable. Patient being admitted for overnight observation for worsening right lower leg cellulitis. Discharge Providers Provider Date of admission: 12/17/20 01:06 Discharge Date: 12/19/20 Primary care physician: Nicole Salinas DO Consults: 12/17/20 10:02 Consult to Occupational Therapy Evaluate & Treat Comment: Physician Instructions: Evaluate and treat Consult to Physical Therapy Evaluate & Treat Comment: Physician Instructions: Evaluate and Treat Discharge provider: Dinesh Gramajo MD Summary Hospital Course Discharge Diagnosis: 1. Possible cellulitis of bilateral lower extremities 2. Chronic venous stasis dermatitis 3. Paroxysmal atrial fibrillation 4. Hypothyroidism, mildly elevated TSH on thyroid replacement 5. Right hip pain secondary to DJD 6. Hypertension 7. Anemia, acute, mild Patient was admitted with complaints of redness and pain of bilateral lower extremities. She appears to have significant chronic venous stasis dermatitis with nonpitting edema, erythema, cobblestoning inflamed appearance of scan. Additionally she had a narrow rim of erythema on the upper borders below her knees. Her white blood cell count was normal and she was afebrile. She presented back to ER after a couple days on cephalexin due to lack of improvement. Patient was treated with Rocephin and doxycyline without improvement after several days of antibiotic therapy. General appearance of legs is more easily attributed to chronic venous stasis dermatitis. Infection seems unlikely with lack of improvement on antibiotics. Patient does not have MRSA risk factors. She is being discharged on oral doxycycline to treat for possible mild cellulitis. Additionally she is prescribed topical triamcinolone to help reduce inflammation and instructed to keep her legs elevated while sitting. Her TSH was 7.39 on thyroid replacement. Levothyroxine dose was not changed on discharge. In terms of antihypertensive regimen she is on amlodipine and metoprolol. It is possible the amlodipine is aggravating the chronic edema in her legs. PCP can consider switching to losartan. I was able to contact Dr. Salinas who will be seeing patient for hospital follow-up and can in-situ any medication changes which may be helpful for her. Exam Vital Signs (past 8 hours): - 12/19/20 05:00 12/19/20 07:27 Temperature 98.2 F Pulse Rate 64 Respiratory Rate 16 Blood Pressure 152/72 H Pulse Oximetry 94 94 Oxygen Delivery Method Room Air Oxygen Flow Rate 0 Objective Labs Result Diagrams: 12/18/20 10:05 12/16/20 22:05 [facility] Medical History (Updated 12/17/20 @ 06:59 by Cory Carter DO) (HFpEF) heart failure with preserved ejection fraction 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) Benign familial tremor Bipolar I disorder (05/22/13) Depression Diverticulosis of colon (05/22/13) Essential hypertension (05/22/13) Facial asymmetry Gastroesophageal reflux disease (05/22/13) Hyperlipidemia (05/22/13) Mitral regurgitation Paroxysmal atrial fibrillation Postoperative hypothyroidism (05/22/13) Pulmonary nodule Restless legs syndrome (05/22/13) Schatzki's ring Squamous cell carcinoma of skin of face (05/22/13) Tremor (05/22/13) Vitamin D deficiency Surgical History History of esophagogastroduodenoscopy (EGD) (~05/2006) History of thyroidectomy (~03/2005) Status post cholecystectomy (~12/2004) Status post colposcopy (~12/2008) Family History Father No problems noted. Mother No problems noted. Social History marital status: household members: spouse lives independently: Yes occupational status: other Smoking Status: Never smoker alcohol intake: never substance use type: does not use Discharge Plan Discharge Plan Patient Disposition: Home Provider Discharge Comment: We evaluated for lower extremity cellulitis and chronic venous stasis causing inflammation of the skin on your legs. Take antibiotics and use topical steroid cream as prescribed. Keep legs elevated while sitting. Follow up with PCP. Discharge orders & Medications Prescriptions: New doxycycline hyclate 100 mg Tablet 100 mg PO BID Qty: 20 RF: 0 triamcinolone acetonide 0.1 % cream 1 applic topical BID Qty: 30 RF: 0 Continued amlodipine 10 mg tablet 10 mg PO DAILY Qty: 90 RF: 1 metoprolol succinate 50 mg tablet extended release 24 hr 50 mg PO DAILY Qty: 90 RF: 3 lansoprazole 30 mg capsule,delayed release(DR/EC) 30 mg PO DAILY Qty: 90 RF: 3 pramipexole 0.5 mg tablet 0.5 mg PO BID Qty: 180 RF: 0 levothyroxine 100 mcg tablet 100 mcg PO DAILY Qty: 90 RF: 3 furosemide 20 mg tablet 40 mg PO QPM Qty: 60 RF: 2 potassium chloride 10 mEq capsule, extended release See Rx Instructions .ROUTE .COMPLEX Qty: 90 RF: 0 nitroglycerin 0.4 mg tablet, sublingual 0.4 mg SL Q5M PRN (Reason: Chest Pain) RF: 0 lactobacillus combination no.8 [Adult Probiotic] 3 billion cell capsule 3,000 mmu cells PO DAILY Qty: 90 RF: 0 peg 400-propylene glycol 0.4-0.3 % drops 1 drp ophthalmic (eye) PRN PRN (Reason: Dry Eyes) RF: 0 Women's One Daily 18 mg iron-400 mcg-500 mg Ca Tablet 1 tab PO DAILY RF: 0 PreserVision AREDS 1 cap PO BID RF: 0 Discontinued cephalexin 500 mg capsule 500 mg PO TID 7 Days Qty: 21 RF: 0 Follow up/Referrals: Nicole Salinas DO [Primary Care Provider] - Discharge Health Status Multidrug resistant organism: No MDRO Diet/Activity/Treatments Diet: Regular Visit Report/Discharge Packet Instructions: DI for Cellulitis -- Adult, Edema Discharge Data Primary Care Provider: Nicole Salinas
== END 2020-12-19 11:45 | disposition home or self-care (01) | DRG 603 ==
LOC: ED 21:17 → AC 12-17 06:59
PROVIDERS: Admitting Provider Nurse Practitioner Family; Emergency Provider Emergency Medicine; PCP Family Medicine; Visit Provider Nurse Practitioner Family
DX: L03.115 Cellulitis of right lower limb (principal); I50.32 Chronic diastolic (congestive) heart failure; L03.116 Cellulitis of left lower limb; I87.2 Venous insufficiency (chronic) (peripheral); I11.0 Hypertensive heart disease with heart failure; F32.9 Major depressive disorder, single episode, unspecified; K21.9 Gastro-esophageal reflux disease without esophagitis; E78.5 Hyperlipidemia, unspecified; I48.0 Paroxysmal atrial fibrillation; E89.0 Postprocedural hypothyroidism; G25.81 Restless legs syndrome; Z20.822 Contact with and (suspected) exposure to COVID-19; M16.11 Unilateral primary osteoarthritis, right hip
CPT/HCPCS: 36415; 72131; 80053; 81003; 82550; 83735; 83880; 84439; 84443; 84484; 85014; 85018; 85025; 85651; 86140; 87040; 87635; 93005; 96361; 96365; 97116; 97162; 97166; 97530; 97535; 99284; 99406; C9803; J0696; J1650

== ENCOUNTER → 2021-02-23 10:04 | Outpatient (CLI) | payer MEDICARE, OTHER, SELFPAY ==
[2020-12-17 01:15] VITALS: BMI 28.0
[2021-02-23 12:01] LABS: Add Manual Diff / Slide Review NO; Basophils Absolute Auto 0 /uL (0-100); Basophils Percent Auto 0.7 % (0-2); Eosinophils Absolute Auto 200 /uL (0-450); Eosinophils Percent Auto 3.5 % (2-4); Hematocrit 33.6 % (36-46); Hemoglobin 10.8 g/dL (12.0-16.0); Lymphocytes Absolute Auto 1900 /uL (1100-4500); Lymphocytes Percent Auto 27.7 % (25-40); Mean Corpuscular HGB Conc 32.2 % (30-36); Mean Corpuscular Hemoglobin 28.3 PG (26-34); Mean Corpuscular Volume 87.8 fL (80-100); Monocytes Absolute Auto 500 /uL (0-900); Monocytes Percent Auto 7.2 % (3-14); Neutrophils Absolute Auto 4100 /uL (1500-7000); Neutrophils Percent Auto 60.9 % (50-75); Platelet Count 211 X10^3/uL (150-400); Red Blood Cell Count 3.83 X10^6/uL (4.0-5.2); Red Cell Distribution Width 17.3 % (11.6-14.8); White Blood Cell Count 6.8 X10^3/uL (4.5-11.0)
[2021-02-23 12:14] LABS: BUN Creatinine Ratio 26.4 (6-22); Blood Urea Nitrogen 23 mg/dL (7-17); Calcium 9.5 mg/dL (8.4-10.2); Carbon Dioxide 29 mmol/L (22-32); Chloride 107 mmol/L (98-107); Cholesterol 176 mg/dL (140-199); Estimated Glomerular Filt Rate > 60.0 mL/min (>60); Glucose 100 mg/dL (80-110); HDL Cholesterol 49 mg/dL (40-60); HEMOLYSIS < 15 (0-50); LDL Cholesterol Calculated 86 mg/dL (<100); Potassium 3.4 mmol/L (3.4-5.1); Sodium 142 mmol/L (137-145); Triglycerides 204 mg/dL (35-150)
[2021-02-23 12:41] LABS: TSH w/ Reflex to FT4 4.89 uIU/mL (0.47-4.68)
[2021-02-23 13:14] LABS: Free T4, Direct Thyroxine 1.56 ng/dL (0.78-2.19)
== END ==
PROVIDERS: PCP Family Medicine; Referring Provider Internal Medicine Cardiovascular Disease; Visit Provider Internal Medicine Cardiovascular Disease
DX: Z95.5 Presence of coronary angioplasty implant and graft (principal)
CPT/HCPCS: 36415; 80048; 80061; 84439; 84443; 85025

== ENCOUNTER → 2021-05-12 09:05 | Outpatient (CLI) | payer MEDICARE, OTHER, SELFPAY ==
[2020-12-17 01:15] VITALS: BMI 28.0
[2021-05-12 10:10] LABS: Alanine Aminotransferase 23 IU/L (<35); Albumin 3.9 g/dL (3.5-5.0); Albumin Globulin Ratio 1.4 (1.0-2.8); Alkaline Phosphatase 78 U/L (38-126); Aspartate Aminotransferase 30 IU/L (14-36); BUN Creatinine Ratio 31.6 (6-22); Bilirubin Total 0.5 mg/dL (0.2-1.3); Blood Urea Nitrogen 24 mg/dL (7-17); Calcium 9.1 mg/dL (8.4-10.2); Carbon Dioxide 24 mmol/L (22-32); Chloride 107 mmol/L (98-107); Estimated Glomerular Filt Rate > 60.0 mL/min (>60); Globulin 2.7 g/dL (1.7-4.1); Glucose 102 mg/dL (80-110); HEMOLYSIS < 15 (0-50); Potassium 3.8 mmol/L (3.4-5.1); Sodium 142 mmol/L (137-145); Total Protein 6.6 g/dL (6.3-8.2)
[2021-05-12 11:22] LABS: Free T4, Direct Thyroxine 1.05 ng/dL (0.78-2.19)
== END ==
PROVIDERS: PCP Family Medicine; Referring Provider Family Medicine; Visit Provider Family Medicine
DX: I10 Essential (primary) hypertension (principal); E89.0 Postprocedural hypothyroidism
CPT/HCPCS: 36415; 80053; 84439; 84443

== ENCOUNTER 2021-05-25 10:30 | Outpatient (RCR) | payer MEDICARE, OTHER, SELFPAY ==
[2020-12-17 01:15] VITALS: BMI 28.0
== END 2021-05-25 12:05 ==
LOC: CAR 10:30
PROVIDERS: PCP Family Medicine; Referring Provider Internal Medicine Cardiovascular Disease; Visit Provider Internal Medicine Cardiovascular Disease
DX: I21.3 ST elevation (STEMI) myocardial infarction of unspecified site (principal)
CPT/HCPCS: 93798

== ENCOUNTER 2021-10-27 09:14 | Emergency (ER) | payer MEDICARE, OTHER, SELFPAY ==
[2020-12-17 01:15] VITALS: BMI 28.0
[2021-10-27 09:20] VITALS: BP 210/107; PULSE 90; RESP 24; TEMP 36.7; O2SAT 99
--- NOTE | 2021-10-27 09:31 | DI.RAD.S_ITS ---
PROCEDURE: XR CHEST 1V INDICATIONS: chest pain TECHNIQUE: One view of the chest was acquired. COMPARISON: [facility], CR, XR CHEST 1V, 07/01/2019, 5:21. FINDINGS: Surgical changes and devices: None. Lungs and pleura: Lungs are clear. No pleural effusions or pneumothorax. Mediastinum: Mediastinal contours appear normal. Heart size is normal. Bones and chest wall: No suspicious bony lesions. Overlying soft tissues appear unremarkable. IMPRESSION: No acute cardiopulmonary findings Approved by: Jose Jacome M.D. on 10/27/2021 at 9:55
--- NOTE | 2021-10-27 09:33 | DI.RAD.S_ITS ---
PROCEDURE: XR SHOULDER RT MIN 2V INDICATIONS: fall with pain TECHNIQUE: 3 views of the shoulder were acquired. COMPARISON: [facility], , SHOULDER MINIMUM 2VIEW RIGHT, 10/29/2017, 0:33. FINDINGS: Bones: No fractures or dislocations. No suspicious bony lesions. Visualized ribs appear intact. Glenohumeral joint space narrowing with inferior marginal osteophyte Soft tissues: No suspicious soft tissue calcifications. Chronic interstitial changes present in the visualized right lung. No pneumothorax. IMPRESSION: Moderate glenohumeral osteoarthritis without fracture Approved by: Jose Jacome M.D. on 10/27/2021 at 9:49
--- NOTE | 2021-10-27 09:33 | DI.RAD.S_ITS ---
PROCEDURE: XR HIP W PEL IF DONE RT 2V INDICATIONS: fall with pain TECHNIQUE: 2 views of the hip were acquired. COMPARISON: [facility], CR, XR HIP W PEL IF DONE RT 2V, 12/12/2020, 17:08. FINDINGS: Bones: No fractures or dislocations. No suspicious bony lesions. The visualized pelvic ring appears intact. Moderate and bilateral acetabular joint space narrowing with small marginal osteophytes. Soft tissues: No suspicious soft tissue calcifications or masses. Surgical clips noted in the right flank IMPRESSION: Moderate osteoarthritis without fracture or dislocation Approved by: Jose Jacome M.D. on 10/27/2021 at 9:53
--- NOTE | 2021-10-27 09:33 | DI.CT.S_ITS ---
PROCEDURE: CT HEAD/BRAIN WO CON INDICATIONS: confusion, falls TECHNIQUE: Noncontrast 5 mm thick angled axial sections acquired from the foramen magnum to the vertex, with coronal and sagittal reformats. For radiation dose reduction, the following was used: automated exposure control, adjustment of mA and/or kV according to patient size. COMPARISON: [facility], CT, CT HEAD/BRAIN WO CON, 12/12/2020, 18:09. FINDINGS: Image quality: Excellent. CSF spaces: Basal cisterns are patent. No extra-axial fluid collections. Ventricles are normal in size and shape. Brain: No midline shift. No intracranial masses or hemorrhage. Pandey-white matter interface is normal. Atrophy and multifocal white matter chronic ischemic change. Mild calcified atherosclerotic plaque noted involving the cavernous portions of both internal carotid and intradural vertebral arteries. Skull and face: Calvarium and visualized facial bones are intact, without suspicious lesions. Bilateral intraocular lens replacements noted. Sinuses: Visualized sinuses and mastoids are clear. IMPRESSION: 1. Atrophy and chronic ischemic change without acute hemorrhage or mass effect Approved by: Jose Jacome M.D. on 10/27/2021 at 9:05
--- NOTE | 2021-10-27 09:35 | ED_ITS ---
HPI - Altered Mental Status General Chief Complaint: Hypertension Stated Complaint: BP over 200 x2 days Time Seen by Provider: 10/27/21 09:19 Source: patient and family Mode of arrival: Wheelchair History of Present Illness HPI narrative: 85-year-old female nonsmoker with history of AFib, heart failure, NSTEMI, hypertension, hyperlipidemia, hypothyroid presents with multiple complaints over the past few days. She states she has been without her medications for the past 5 days and starting feeling poorly about 3 days ago. She complains of increasing blood pressures, multiple falls, fatigue and shortness of breath. She denies any significant injury as a consequence of her falls. She thinks she may have had syncopal episodes but is a rather poor historian and is unclear. She states that she is out of her medications as a consequence of a disagreement with her primary care provider. She denies chest pain, abdominal pain, nausea, vomiting or diarrhea. She denies dysuria, frequency or urgency. Related Data Home Medications Medication Instructions Recorded Confirmed nitroglycerin 0.4 mg sublingual 0.4 mg SL Q5M PRN 11/22/17 05/05/21 tablet multivit-iron 18 mg-folic acid 400 1 tab PO DAILY 12/09/17 05/05/21 mcg-calcium 500 mg-minerals tablet (Women's One Daily) PreserVision AREDS 1 cap PO BID 10/09/18 05/05/21 ascorbic acid (vitamin C) 1,000 mg 1 g PO DAILY tab 05/11/21 05/11/21 tablet cholecalciferol (vitamin D3) 25 25 mcg PO DAILY 05/11/21 05/11/21 mcg (1,000 unit) capsule sennosides 8.6 mg-docusate sodium 1 tab-cap PO BEDTIME 05/11/21 05/11/21 50 mg tablet (Laxative Stool Softener With Senna) zinc 50 mg tablet 50 mg PO DAILY 05/11/21 05/11/21 amlodipine 10 mg tablet 10 mg PO DAILY 10/27/21 10/27/21 atorvastatin 40 mg tablet 40 mg PO BEDTIME 10/27/21 10/27/21 levothyroxine 112 mcg tablet 112 mcg PO QAM 10/27/21 10/27/21 losartan 100 mg tablet 100 mg PO DAILY 10/27/21 10/27/21 pramipexole 0.5 mg tablet 0.5 mg PO BID 10/27/21 10/27/21 Previous Rx's Medication Instructions Recorded Bio Soothe 1 cap PO DAILY #90 cap 05/11/21 Mind Tech Supplement 1 cap PO DAILY #90 cap 05/11/21 Sanguenol supplement 1 cap PO DAILY #90 cap 05/11/21 lansoprazole 30 mg capsule,delayed 30 mg PO DAILY #90 cap 05/14/21 release pramipexole 0.5 mg tablet See Rx Instructions .ROUTE 10/26/21 .COMPLEX #180 tab amlodipine 10 mg tablet 10 mg PO DAILY #90 tab 10/27/21 apixaban 5 mg tablet (Eliquis) 5 mg PO BID #180 tab 10/27/21 atorvastatin 40 mg tablet 40 mg PO BEDTIME #90 tab 10/27/21 clopidogrel 75 mg tablet (Plavix) 75 mg PO DAILY #90 tab 10/27/21 furosemide 20 mg tablet See Rx Instructions .ROUTE 10/27/21 .COMPLEX #180 tab losartan 100 mg tablet 100 mg PO DAILY #90 tab 10/27/21 metoprolol succinate 50 mg 50 mg PO DAILY #90 tab 10/27/21 tablet,extended release 24 hr potassium chloride 10 mEq See Rx Instructions .ROUTE 10/27/21 capsule,extended release .COMPLEX #90 cap Allergies Allergy/AdvReac Type Severity Reaction Status Date / Time amitriptyline [AMITRIPTYLINE] Allergy Unknown Verified 10/27/21 09:35 gabapentin [GABAPENTIN] Allergy Unknown Verified 10/27/21 09:35 ANESTHESIA DRUG AdvReac Mild UNSURE FOR Uncoded 09/20/19 14:44 THE NAME 05/31/14 Review of Systems Review of Systems Narrative: GENERAL: See HPI HEENT: Denies sinus pain, ear pain, sore throat, difficulty swallowing, dizziness. RESPIRATORY: Denies dyspnea, cough, wheezing, hemoptysis, sputum. CARDIOVASCULAR: See HPI GASTROINTESTINAL: See HPI : Denies dysuria, frequency, incontinence, hematuria, urinary retention. MUSCULOSKELETAL: denies weakness, joint pain, or bony pain SKIN: Denies rash, skin lesions, or other NEUROLOGIC: Denies weakness, headache, numbness, change in speech, confusion, seizures, incoordination. PSYCHIATRIC: No concerning psychosocial issues. 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) Benign familial tremor Bipolar I disorder (05/22/13) Depression Diverticulosis of colon (05/22/13) Essential hypertension (05/22/13) Facial asymmetry Gastroesophageal reflux disease (05/22/13) Hyperlipidemia (05/22/13) Mitral regurgitation NSTEMI (non-ST elevated myocardial infarction) Paroxysmal atrial fibrillation Postoperative hypothyroidism (05/22/13) Pulmonary nodule Restless legs syndrome (05/22/13) Schatzki's ring Squamous cell carcinoma of skin of face (05/22/13) Tremor (05/22/13) Vitamin D deficiency Surgical History History of esophagogastroduodenoscopy (EGD) (~05/2006) History of thyroidectomy (~03/2005) Status post cholecystectomy (~12/2004) Status post colposcopy (~12/2008) Family History Father No problems noted. Mother No problems noted. Social History marital status: household members: spouse lives independently: Yes occupational status: other Smoking Status: Never smoker alcohol intake: never substance use type: does not use Smoking Status: Never smoker alcohol intake frequency: 0-2 drinks per day Substance Use Type: does not use Exam Narrative Exam Narrative: GENERAL: [85 year old patient appears stated age. Well-developed patient, in mild distress. A bit anxious, pleasantly confused, GCS 14 HEAD: Atraumatic. Normocephalic. EYES: Pupils equal round and reactive. Extraocular motions intact. No scleral icterus. No injection or drainage. ENT: Nose without bleeding, purulent drainage. Throat without erythema, tonsi llar hypertrophy or exudate. Airway patent. NECK: Trachea midline. Non tender CARDIOVASCULAR: Regular rate and rhythm without murmurs, gallops, or rubs. RESPIRATORY: Clear to auscultation. Breath sounds equal bilaterally. No wheezes, rales, or rhonchi. GASTROINTESTINAL: Abdomen soft, non-tender, nondistended. EXTREMITIES: Pain on palpation of right shoulder, no obvious deformity, full painful range of motion, closed and neurovascularly intact. Bilateral lower extremity 2+ pitting edema with minimal erythema BACK: Nontender without deformity or crepitance. No flank tenderness. NEURO: AOx3. SKIN: No rash or erythema of visible areas Initial Vital Signs Initial Vital Signs: Vital Signs Temperature 98.1 F 10/27/21 09:20 Pulse Rate 90 10/27/21 09:20 Respiratory Rate 24 10/27/21 09:20 Blood Pressure 210/107 H 10/27/21 09:20 Pulse Oximetry 99 10/27/21 09:20 Course Orders Ordered: Discontinued Medications Amlodipine Besylate (Amlodipine 5 Mg Tablet) 10 mg PO NOW ONE Stop: 10/27/21 09:41 Last Admin: 10/27/21 10:12 Dose: 10 mg Documented by: ABAD Furosemide (Furosemide 40 Mg/4 Ml Vial) 40 mg IV NOW ONE Stop: 10/27/21 09:41 Last Admin: 10/27/21 10:12 Dose: 40 mg Documented by: ABAD Sodium Chloride (Normal Saline 0.9%) 1,000 mls @ 150 mls/hr IV CONT NAGI Last Admin: 10/27/21 10:13 Dose: Not Given Documented by: ABAD Losartan Potassium (Losartan 50 Mg Tablet) 100 mg PO NOW ONE Stop: 10/27/21 11:17 Last Admin: 10/27/21 11:35 Dose: 100 mg Documented by: ABAD Reevaluation(s) Reevaluation #1: Patient has significant improvement after above-stated therapies. Her symptoms have largely resolved, her blood pressure is improved, she is ambulating to the bathroom, making dilute urine Consultations Consultation #1: Discussed with patient's PCP. She has reviewed the record and think she has likely been without her medications for some time. She has sense all medications with refills that she wishes Ms. Strickland to be on. We sure the opinion that she is appropriate for discharge, Dr. Salinas requests patient follow closely with her clinic Vital Signs Vital signs: Vital Signs - 8 hr 10/27/21 11:39 Pulse Rate 80 Respiratory Rate 22 Blood Pressure 163/75 H Pulse Oximetry 97 MDM - Altered Mental Status Lab Data Result diagrams: 10/27/21 09:45 10/27/21 09:45 Labs: Lab Results 10/27/21 10/27/21 10/27/21 Range/Units 09:45 09:45 09:45 WBC 8.1 (4.5-11.0) X10^3/uL RBC 4.51 (4.0-5.2) X10^6/uL Hgb 12.8 (12.0-16.0) g/dL Hct 38.6 (36-46) % MCV 85.6 (80-100) fL MCH 28.4 (26-34) PG MCHC 33.2 (30-36) % RDW 15.2 H (11.6-14.8) % Plt Count 227 (150-400) X10^3/uL Neut % (Auto) 65.8 (50-75) % Lymph % (Auto) 24.1 L (25-40) % Shackelford % (Auto) 7.3 (3-14) % Eos % (Auto) 2.0 (2-4) % Baso % (Auto) 0.8 (0-2) % Neut # (Auto) 5300 (7356-9318) /uL Lymph # (Auto) 2000 (1030-4946) /uL Shackelford # (Auto) 600 (0-900) /uL Eos # (Auto) 200 (0-450) /uL Baso # (Auto) 100 (0-100) /uL PT 11.1 (10.1-12.7) SECONDS INR 1.0 (0.9-1.3) D-Dimer (<230) ng/mL Sodium 142 (137-145) mmol/L Potassium 3.6 (3.4-5.1) mmol/L Chloride 108 H (98-107) mmol/L Carbon Dioxide 23 (22-32) mmol/L BUN 20 H (7-17) mg/dL Creatinine 0.68 (0.52-1.04) mg/dL Estimated GFR > 60.0 (>60) mL/min BUN/Creatinine Ratio 29.4 H (6-22) Glucose 119 H (80-110) mg/dL Calcium 8.8 (8.4-10.2) mg/dL Total Bilirubin 0.6 (0.2-1.3) mg/dL AST 29 (14-36) IU/L ALT 22 (<35) IU/L Alkaline Phosphatase 65 (38-126) U/L Total Creatine Kinase 45 (30-135) U/L CK-MB (CK-2) TNP CK-MB (CK-2) Rel Index TNP Troponin I < 0.012 (0.01-0.034) ng/mL NT-Pro-B Natriuret Pep 164 (<450) pg/mL Total Protein 6.9 (6.3-8.2) g/dL Albumin 3.9 (3.5-5.0) g/dL Globulin 3.0 (1.7-4.1) g/dL Albumin/Globulin Ratio 1.3 (1.0-2.8) Lipase 179 (23-300) U/L Procalcitonin 0.05 (<0.5) ng/mL TSH (0.47-4.68) uIU/mL Free T4 (0.78-2.19) ng/dL SARS-CoV-2 (PCR) (Negative) 10/27/21 10/27/21 10/27/21 Range/Units 09:45 09:45 10:14 WBC (4.5-11.0) X10^3/uL RBC (4.0-5.2) X10^6/uL Hgb (12.0-16.0) g/dL Hct (36-46) % MCV (80-100) fL MCH (26-34) PG MCHC (30-36) % RDW (11.6-14.8) % Plt Count (150-400) X10^3/uL Neut % (Auto) (50-75) % Lymph % (Auto) (25-40) % Shackelford % (Auto) (3-14) % Eos % (Auto) (2-4) % Baso % (Auto) (0-2) % Neut # (Auto) (2480-7162) /uL Lymph # (Auto) (8137-0773) /uL Shackelford # (Auto) (0-900) /uL Eos # (Auto) (0-450) /uL Baso # (Auto) (0-100) /uL PT (10.1-12.7) SECONDS INR (0.9-1.3) D-Dimer < 200 (<230) ng/mL Sodium (137-145) mmol/L Potassium (3.4-5.1) mmol/L Chloride (98-107) mmol/L Carbon Dioxide (22-32) mmol/L BUN (7-17) mg/dL Creatinine (0.52-1.04) mg/dL Estimated GFR (>60) mL/min BUN/Creatinine Ratio (6-22) Glucose (80-110) mg/dL Calcium (8.4-10.2) mg/dL Total Bilirubin (0.2-1.3) mg/dL AST (14-36) IU/L ALT (<35) IU/L Alkaline Phosphatase (38-126) U/L Total Creatine Kinase (30-135) U/L CK-MB (CK-2) CK-MB (CK-2) Rel Index Troponin I (0.01-0.034) ng/mL NT-Pro-B Natriuret Pep (<450) pg/mL Total Protein (6.3-8.2) g/dL Albumin (3.5-5.0) g/dL Globulin (1.7-4.1) g/dL Albumin/Globulin Ratio (1.0-2.8) Lipase (23-300) U/L Procalcitonin (<0.5) ng/mL TSH 6.19 H (0.47-4.68) uIU/mL Free T4 1.21 (0.78-2.19) ng/dL SARS-CoV-2 (PCR) Negative (Negative) Imaging Data CT scan - head: Radiologist's Impression: [place] [address] CT Scan Report Signed Patient: Lolis Strickland MR#: [id number] : 1935 Acct:[id number] Age/Sex: 85 / F Date of Service: 10/27/21 Loc: ED Accession Number: [id number] ?? Procedure: CT head/brain wo con Ordering Provider: Cory Carter D.O. PROCEDURE:? CT HEAD/BRAIN WO CON ? INDICATIONS:? confusion, falls ? TECHNIQUE:? Noncontrast 5 mm thick angled axial sections acquired from the foramen magnum to the vertex, with coronal and sagittal reformats.? For radiation dose reduction, the following was used:? automated exposure control, adjustment of mA and/or kV according to patient size.? ? COMPARISON:? [facility], CT, CT HEAD/BRAIN WO CON, 12/12/2020, 18:09. ? FINDINGS:? Image quality:? Excellent.? ? CSF spaces:? Basal cisterns are patent.? No extra-axial fluid collections.? Ventricles are normal in size and shape.? ? Brain:? No midline shift.? No intracranial masses or hemorrhage.? Pandey-white matter interface is normal.? Atrophy and multifocal white matter chronic ischemic change. Mild calcified atherosclerotic plaque noted involving the cavernous portions of both internal carotid and intradural vertebral arteries.? ? Skull and face:? Calvarium and visualized facial bones are intact, without suspicious lesions.? Bilateral intraocular lens replacements noted. ? Sinuses:? Visualized sinuses and mastoids are clear.? ? IMPRESSION:? ? 1. Atrophy and chronic ischemic change without acute hemorrhage or mass effect ? ? Approved by: Jose Jacome M.D. on 10/27/2021 at 9:05? Chest x-ray: Radiologist's Impression: Launch?Image [address] [address] XRay Report Signed Patient: Lolis Strickland MR#: [id number] : 1935 Acct:[id number] Age/Sex: 85 / F Date of Service: 10/27/21 Loc: ED Accession Number: [id number] ?? Procedure: XR chest 1V Ordering Provider: Cory Carter D.O. PROCEDURE:? XR CHEST 1V ? INDICATIONS:? chest pain ? TECHNIQUE:? One view of the chest was acquired.? ? COMPARISON:? [facility], CR, XR CHEST 1V, 07/01/2019, 5:21. ? FINDINGS:? ? Surgical changes and devices:? None.? ? Lungs and pleura:? Lungs are clear.? No pleural effusions or pneumothorax.? ? Mediastinum:? Mediastinal contours appear normal.? Heart size is normal.? ? Bones and chest wall:? No suspicious bony lesions.? Overlying soft tissues appear unremarkable.? ? IMPRESSION:? No acute cardiopulmonary findings ? ? ? Approved by: Jose Jacome M.D. on 10/27/2021 at 9:55? Extremity x-ray #1: Radiologist's Impression: [address] [address] XRay Report Signed Patient: Lolis Strickland MR#: [id number] : 1935 Acct:[id number] Age/Sex: 85 / F Date of Service: 10/27/21 Loc: ED Accession Number: [id number] ?? Procedure: XR shoulder RT min 2V Ordering Provider: Cory Carter D.O. PROCEDURE:? XR SHOULDER RT MIN 2V ? INDICATIONS:? fall with pain ? TECHNIQUE:? 3 views of the shoulder were acquired.? ? COMPARISON:? [facility], ARIEL, SHOULDER MINIMUM 2VIEW RIGHT, 10/29/2017, 0:33. ? FINDINGS:? ? Bones:? No fractures or dislocations.? No suspicious bony lesions.? Visualized ribs appear intact.? Glenohumeral joint space narrowing with inferior marginal osteophyte ? Soft tissues:? No suspicious soft tissue calcifications.? Chronic interstitial changes present in the visualized right lung.? No pneumothorax. ? IMPRESSION:? Moderate glenohumeral osteoarthritis without fracture ? ? ? Approved by: Jose Jacome M.D. on 10/27/2021 at 9:49? Extremity x-ray #2: Radiologist's Impression: Launch?[place] [address] XRay Report Signed Patient: Lolis Strickland MR#: [id number] : 1935 Acct:[id number] Age/Sex: 85 / F Date of Service: 10/27/21 Loc: ED Accession Number: [id number] ?? Procedure: XR hip w pel if done RT 2V Ordering Provider: Cory Carter D.O. PROCEDURE:? XR HIP W PEL IF DONE RT 2V ? INDICATIONS:? fall with pain ? TECHNIQUE:? 2 views of the hip were acquired.? ? COMPARISON:? [facility], , XR HIP W PEL IF DONE RT 2V, 12/12/2020, 17:08. ? FINDINGS:? ? Bones:? No fractures or dislocations.? No suspicious bony lesions.? The visualized pelvic ring appears intact.? Moderate and bilateral acetabular joint space narrowing with small marginal osteophytes. ? Soft tissues:? No suspicious soft tissue calcifications or masses.? Surgical clips noted in the right flank ? IMPRESSION:? Moderate osteoarthritis without fracture or dislocation ? ? ? Approved by: Jose Jacome M.D. on 10/27/2021 at 9:53? Discharge Plan Departure Patient Disposition: Home Clinical Impression: Essential hypertension, Pulmonary edema Instructions: DI for High Blood Pressure Activity Restrictions/Additional Instructions: *You have been diagnosed with [Medical noncompliance, hypertension ] *What to do: *Please take your regular medications as directed. [ x] New medication prescriptions sent to your pharmacy: [ Dr Salinas is sending them as we speak.] [ ] New medication written as a paper prescription [ ] No new medications given *Please follow up with Dr. Salinas in 2-3 days, call for an appointment. Let them know you were seen in the Emergency Department and that we ask that you be seen in follow up. We will electronically transmit a record of today's note if your PCP is in our system *Return to Emergency Department if you should have any new, worsening or concerning symptoms, such as [fever greater than 101 F, shaking chills, worsening pain, persistent vomiting or other bothersome symptoms] Prescriptions: No Action cholecalciferol (vitamin D3) 25 mcg (1,000 unit) capsule 25 mcg PO DAILY 0RF ascorbic acid (vitamin C) 1,000 mg tablet 1 g PO DAILY 0RF Bio Soothe 1 cap PO DAILY Qty: 90 0RF zinc 50 mg tablet 50 mg PO DAILY 0RF Sanguenol supplement 1 cap PO DAILY Qty: 90 0RF Mind Tech Supplement 1 cap PO DAILY Qty: 90 0RF sennosides-docusate sodium [Lax Stool Softener With Senna] 8.6-50 mg tablet 1 tab-cap PO BEDTIME 0RF lansoprazole 30 mg capsule,delayed release(DR/EC) 30 mg PO DAILY Qty: 90 3RF pramipexole 0.5 mg tablet See Rx Instructions .ROUTE .COMPLEX Qty: 180 1RF Dose Instruction: TAKE 1 TABLET BY MOUTH TWICE DAILY Rx Instructions: TAKE 1 TABLET BY MOUTH TWICE DAILY metoprolol succinate 50 mg tablet extended release 24 hr 50 mg PO DAILY Qty: 90 0RF amlodipine 10 mg tablet 10 mg PO DAILY Qty: 90 0RF Eliquis 5 mg tablet 5 mg PO BID Qty: 180 0RF atorvastatin 40 mg tablet 40 mg PO BEDTIME Qty: 90 0RF clopidogrel [Plavix] 75 mg tablet 75 mg PO DAILY Qty: 90 0RF losartan 100 mg tablet 100 mg PO DAILY Qty: 90 0RF potassium chloride 10 mEq capsule, extended release See Rx Instructions .ROUTE .COMPLEX Qty: 90 0RF Dose Instruction: TAKE 1 CAPSULE BY MOUTH DAILY Rx Instructions: TAKE 1 CAPSULE BY MOUTH DAILY furosemide 20 mg tablet See Rx Instructions .ROUTE .COMPLEX Qty: 180 0RF Dose Instruction: TAKE 2 TABLETS BY MOUTH EVERY MORNING Rx Instructions: TAKE 2 TABLETS BY MOUTH EVERY MORNING nitroglycerin 0.4 mg tablet, sublingual 0.4 mg SL Q5M PRN (Reason: Chest Pain) 0RF Women's One Daily 18 mg iron-400 mcg-500 mg Ca Tablet 1 tab PO DAILY 0RF atorvastatin 40 mg tablet 40 mg PO BEDTIME 0RF pramipexole 0.5 mg tablet 0.5 mg PO BID 0RF amlodipine 10 mg tablet 10 mg PO DAILY 0RF losartan 100 mg tablet 100 mg PO DAILY 0RF levothyroxine 112 mcg tablet 112 mcg PO QAM 0RF PreserVision AREDS 1 cap PO BID 0RF Referrals: Nicole Salinas DO [Primary Care Provider] -
[2021-10-27 09:56] LABS: Add Manual Diff / Slide Review NO; Basophils Absolute Auto 100 /uL (0-100); Basophils Percent Auto 0.8 % (0-2); Eosinophils Absolute Auto 200 /uL (0-450); Hematocrit 38.6 % (36-46); Hemoglobin 12.8 g/dL (12.0-16.0); Lymphocytes Absolute Auto 2000 /uL (1100-4500); Lymphocytes Percent Auto 24.1 % (25-40); Mean Corpuscular HGB Conc 33.2 % (30-36); Mean Corpuscular Hemoglobin 28.4 PG (26-34); Mean Corpuscular Volume 85.6 fL (80-100); Monocytes Absolute Auto 600 /uL (0-900); Monocytes Percent Auto 7.3 % (3-14); Neutrophils Absolute Auto 5300 /uL (1500-7000); Neutrophils Percent Auto 65.8 % (50-75); Platelet Count 227 X10^3/uL (150-400); Red Blood Cell Count 4.51 X10^6/uL (4.0-5.2); Red Cell Distribution Width 15.2 % (11.6-14.8); White Blood Cell Count 8.1 X10^3/uL (4.5-11.0)
[2021-10-27 10:03] LABS: Prothrombin Time 11.1 SECONDS (10.1-12.7)
[2021-10-27 10:09] LABS: Alanine Aminotransferase 22 IU/L (<35); Albumin 3.9 g/dL (3.5-5.0); Albumin Globulin Ratio 1.3 (1.0-2.8); Alkaline Phosphatase 65 U/L (38-126); Aspartate Aminotransferase 29 IU/L (14-36); BUN Creatinine Ratio 29.4 (6-22); Bilirubin Total 0.6 mg/dL (0.2-1.3); Blood Urea Nitrogen 20 mg/dL (7-17); Calcium 8.8 mg/dL (8.4-10.2); Carbon Dioxide 23 mmol/L (22-32); Chloride 108 mmol/L (98-107); Creatine Kinase 45 U/L (30-135); Estimated Glomerular Filt Rate > 60.0 mL/min (>60); Glucose 119 mg/dL (80-110); Lipase 179 U/L (23-300); Potassium 3.6 mmol/L (3.4-5.1); Sodium 142 mmol/L (137-145); Total Protein 6.9 g/dL (6.3-8.2)
[2021-10-27] MEDS: FUROSEMIDE 40 MG/4 ML VIAL IV (10:12)
[2021-10-27] MEDS: AMLODIPINE 5 MG TABLET 10 MG PO (10:12)
[2021-10-27 10:23] LABS: D Dimer < 200 ng/mL (<230); HEMOLYSIS 39 (0-50); NT-proBNP (BNP-Adult 18+) 164 pg/mL (<450); Troponin I < 0.012 ng/mL (0.01-0.034)
[2021-10-27 10:26] LABS: Procalcitonin 0.05 ng/mL (<0.5)
[2021-10-27 10:50] LABS: TSH w/ Reflex to FT4 6.19 uIU/mL (0.47-4.68)
[2021-10-27 10:55] LABS: COVID19 -Nasal RAPID Negative (Negative)
[2021-10-27 10:59] VITALS: BP 201/98; PULSE 72; RESP 24; O2SAT 98
[2021-10-27 11:18] LABS: Free T4, Direct Thyroxine 1.21 ng/dL (0.78-2.19)
[2021-10-27 11:35] VITALS: BP 163/75; PULSE 80
[2021-10-27] MEDS: LOSARTAN 50 MG TABLET 100 MG PO (11:35)
[2021-10-27 11:39] VITALS: BP 163/75; PULSE 80; RESP 22; O2SAT 97
== END 2021-10-27 11:55 | disposition home or self-care (01) ==
PROVIDERS: Emergency Provider Emergency Medicine; PCP Family Medicine
DX: I10 Essential (primary) hypertension (principal); J81.1 Chronic pulmonary edema; R41.0 Disorientation, unspecified; R29.6 Repeated falls; Z20.822 Contact with and (suspected) exposure to COVID-19
CPT/HCPCS: 36415; 70450; 71045; 73030; 73502; 80053; 82550; 83690; 83880; 84145; 84439; 84443; 84484; 85025; 85379; 85610; 87635; 93005; 93010; 96374; 99284; 99285; C9803; J1940

== ENCOUNTER 2021-11-20 09:23 | Emergency (ER) | payer MEDICARE, OTHER, SELFPAY ==
[2020-12-17 01:15] VITALS: BMI 28.0
--- NOTE | 2021-11-20 09:58 | DI.RAD.S_ITS ---
PROCEDURE: XR ACUTE ABDOMEN SERIES INDICATIONS: Short of breath, fatigue TECHNIQUE: One view chest and two views of the abdomen were acquired. COMPARISON: [facility], CR, XR CHEST 1V, 10/27/2021, 9:28. [facility], CR, ABDOMEN ACUTE SERIES, 06/26/2015, 2:10. FINDINGS: Surgical changes and devices: Cholecystectomy clips are seen. Chest: Mild generalized interstitial prominence can be seen. Heart size is normal. No pleural effusions. No pneumoperitoneum. Abdomen: Bowel gas pattern is normal. No suspicious calcifications. Visualized solid organ contours appear normal. Bones: No suspicious bony lesions. Age-appropriate bony degenerative changes are seen, including involving both hips. Mild dextroconvex scoliotic curvature is seen. IMPRESSION: Mild generalized interstitial prominence can be seen. Please consider pulmonary edema versus atypical infection (including COVID pneumonia). A nonobstructive bowel gas pattern is seen. If clinically appropriate, please consider a repeat plain film study or a dedicated CT of the abdomen and pelvis, if the patient's symptoms persist or worsen. Dictated by: Rojelio Ziegler M.D. on 11/20/2021 at 9:58 Approved by: Rojelio Ziegler M.D. on 11/20/2021 at 9:59
--- NOTE | 2021-11-20 10:00 | ED_ITS ---
HPI - Extremity Problem General Chief complaint: Extremity Problem,Nontraumatic Stated complaint: rash all over body when woke up Time Seen by Provider: 11/20/21 09:57 History of Present Illness HPI Narrative: 85-year-old female nonsmoker with extensive medical history including AFib, he art failure, hypertension, hyperlipidemia, bipolar presents with a chief complaint of 4 days of rapidly worsening bilateral lower extremity swelling, redness and pain. She denies any injury and has no fever or chills. She does admit to increased generalized weakness shortness of breath with exertion and states she cannot lay flat because it makes her uncomfortable. She is not dizzy or lightheaded. She denies any chest pain or palpitations. She denies runny nose, sore throat or cough. She denies any change in medications or diet. Additionally she states that she has some itchy rash underneath her breasts bilaterally. Related Data Home Medications Medication Instructions Recorded Confirmed PreserVision AREDS 1 cap PO BID 10/09/18 05/05/21 levothyroxine 112 mcg tablet 112 mcg PO QAM 10/27/21 10/27/21 herbal drugs (Colon Herbal cap PO .qd cap 11/03/21 11/03/21 Cleanser) nerve support supplement See Rx Instructions .ROUTE .COMPLEX 11/03/21 11/03/21 Previous Rx's Medication Instructions Recorded Sanguenol supplement 1 cap PO DAILY #90 cap 05/11/21 lansoprazole 30 mg capsule,delayed 30 mg PO DAILY #90 cap 05/14/21 release pramipexole 0.5 mg tablet See Rx Instructions .ROUTE 10/26/21 .COMPLEX #180 tab amlodipine 10 mg tablet 10 mg PO DAILY #90 tab 10/27/21 furosemide 20 mg tablet See Rx Instructions .ROUTE 10/27/21 .COMPLEX #180 tab losartan 100 mg tablet 100 mg PO DAILY #90 tab 10/27/21 metoprolol succinate 50 mg 50 mg PO DAILY #90 tab 10/27/21 tablet,extended release 24 hr potassium chloride 10 mEq See Rx Instructions .ROUTE 10/27/21 capsule,extended release .COMPLEX #90 cap apixaban 5 mg tablet (Eliquis) 5 mg PO BID #180 tab 11/03/21 chlorthalidone 25 mg tablet 25 mg PO DAILY #30 tab 11/03/21 cephalexin 500 mg capsule 500 mg PO Q6H 7 Days #28 cap 11/20/21 Allergies Allergy/AdvReac Type Severity Reaction Status Date / Time amitriptyline [AMITRIPTYLINE] Allergy Unknown Verified 11/20/21 10:07 gabapentin [GABAPENTIN] Allergy Unknown Verified 11/20/21 10:07 ANESTHESIA DRUG AdvReac Mild UNSURE FOR Uncoded 11/20/21 10:07 THE NAME 05/31/14 Review of Systems Review of Systems Narrative: GENERAL: See HPI HEENT: Denies sinus pain, ear pain, sore throat, difficulty swallowing, dizziness. RESPIRATORY: See HPI CARDIOVASCULAR: See HPI GASTROINTESTINAL: Denies nausea, vomiting, abdominal pain, diarrhea, constipation, melena. : Denies dysuria, frequency, incontinence, hematuria, urinary retention. MUSCULOSKELETAL: denies weakness, joint pain, or bony pain SKIN: See HPI NEUROLOGIC: Denies weakness, headache, numbness, change in speech, confusion, seizures, incoordination. PSYCHIATRIC: No concerning psychosocial issues. 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) Benign familial tremor Bipolar I disorder (05/22/13) Depression Diverticulosis of colon (05/22/13) Essential hypertension (05/22/13) Facial asymmetry Gastroesophageal reflux disease (05/22/13) Hyperlipidemia (05/22/13) Mitral regurgitation NSTEMI (non-ST elevated myocardial infarction) Paroxysmal atrial fibrillation Postoperative hypothyroidism (05/22/13) Pulmonary nodule Restless legs syndrome (05/22/13) Schatzki's ring Squamous cell carcinoma of skin of face (05/22/13) Tremor (05/22/13) Vitamin D deficiency Surgical History History of esophagogastroduodenoscopy (EGD) (~05/2006) History of thyroidectomy (~03/2005) Status post cholecystectomy (~12/2004) Status post colposcopy (~12/2008) Family History Father No problems noted. Mother No problems noted. Social History marital status: household members: spouse lives independently: Yes occupational status: other Smoking Status: Never smoker alcohol intake: never substance use type: does not use Smoking Status: Never smoker alcohol intake frequency: 0-2 drinks per day Substance Use Type: does not use Exam Narrative Exam Narrative: GENERAL: [85 year old patient appears stated age. Well-developed patient, in mild distress. HEAD: Atraumatic. Normocephalic. EYES: Pupils equal round and reactive. Extraocular motions intact. No scleral icterus. No injection or drainage. ENT: Nose without bleeding, purulent drainage. Throat without erythema, tonsillar hypertrophy or exudate. Airway patent. NECK: Trachea midline. Non tender CARDIOVASCULAR: Regular rate and rhythm without murmurs, gallops, or rubs. RESPIRATORY: Clear to auscultation. Breath sounds equal bilaterally. No wheezes, rales, or rhonchi. GASTROINTESTINAL: Abdomen soft, non-tender, nondistended. EXTREMITIES: Bilateral lower extremities significantly erythematous and edematous just below the knee and circumferentially, pitting edema noted tense and nearly weeping. She states this is a profound size changer 3-4 days ago. BACK: Nontender without deformity or crepitance. No flank tenderness. NEURO: AOx3. SKIN: Patchy erythematous blanching papules under bilateral breasts with satellite lesions Initial Vital Signs Initial Vital Signs: Vital Signs Temperature 98.0 F 11/20/21 10:09 Pulse Rate 92 H 11/20/21 10:09 Respiratory Rate 22 11/20/21 10:09 Blood Pressure 160/75 H 11/20/21 10:09 Pulse Oximetry 96 11/20/21 10:09 Course Orders Ordered: ED Orders 11/20/21 09:58 XR acute abdomen series Stat 11/20/21 09:59 EKG-12 Lead Stat 11/20/21 10:23 C-Reactive Protein Quant Stat COVID19 -Nasal RAPID/Pre-Proc Stat Complete Blood Count AUTO DIFF Stat Comprehensive Metabolic Panel Stat Erythrocyte Sedimentation Rate Stat Lactate (Lactic Acid) Stat Magnesium Stat NT-proBNP (BNP-Adult 18+) Stat Troponin & CK Cardiac Panel Stat 11/20/21 11:30 Blood Culture Stat Vital Signs Vital signs: Vital Signs - 8 hr 11/20/21 10:09 05/06/22 12:23 Temperature 98.0 F Pulse Rate 92 H 83 Respiratory Rate 22 16 Blood Pressure 160/75 H 190/63 H Pulse Oximetry 96 97 MDM - Extremity (Nontraumatic) Lab Data Result diagrams: 11/20/21 10:23 11/20/21 10:23 Labs: Lab Results 11/20/21 11/20/21 11/20/21 Range/Units 10:23 10:23 10:23 WBC 8.4 (4.5-11.0) X10^3/uL RBC 4.27 (4.0-5.2) X10^6/uL Hgb 12.1 (12.0-16.0) g/dL Hct 36.3 (36-46) % MCV 85.0 (80-100) fL MCH 28.4 (26-34) PG MCHC 33.4 (30-36) % RDW 14.8 (11.6-14.8) % Plt Count 223 (150-400) X10^3/uL Neut % (Auto) 65.5 (50-75) % Lymph % (Auto) 21.8 L (25-40) % [place] % (Auto) 6.4 (3-14) % Eos % (Auto) 5.8 H (2-4) % Baso % (Auto) 0.5 (0-2) % Neut # (Auto) 5500 (9883-3811) /uL Lymph # (Auto) 1800 (7655-3474) /uL [place] # (Auto) 500 (0-900) /uL Eos # (Auto) 500 H (0-450) /uL Baso # (Auto) 0 (0-100) /uL ESR 47 H (0-20) MM/HR Sodium 143 (137-145) mmol/L Potassium 3.5 (3.4-5.1) mmol/L Chloride 111 H (98-107) mmol/L Carbon Dioxide 26 (22-32) mmol/L BUN 14 (7-17) mg/dL Creatinine 0.71 (0.52-1.04) mg/dL Estimated GFR > 60 (>60) mL/min BUN/Creatinine Ratio 19.7 (6-22) Glucose 110 (80-110) mg/dL Lactate 1.0 (0.7-2.1) mmol/L Calcium 8.8 (8.4-10.2) mg/dL Magnesium 1.9 (1.6-2.3) mg/dL Total Bilirubin 0.5 (0.2-1.3) mg/dL AST 26 (14-36) IU/L ALT 24 (<35) IU/L Alkaline Phosphatase 84 (38-126) U/L Total Creatine Kinase 48 (30-135) U/L CK-MB (CK-2) TNP CK-MB (CK-2) Rel Index TNP Troponin I < 0.012 (0.01-0.034) ng/mL C-Reactive Protein 3.2 H (<1.0) mg/dL NT-Pro-B Natriuret Pep 258 (<450) pg/mL Total Protein 6.7 (6.3-8.2) g/dL Albumin 3.8 (3.5-5.0) g/dL Globulin 2.9 (1.7-4.1) g/dL Albumin/Globulin Ratio 1.3 (1.0-2.8) SARS-CoV-2 (PCR) (Negative) 11/20/21 Range/Units 10:23 WBC (4.5-11.0) X10^3/uL RBC (4.0-5.2) X10^6/uL Hgb (12.0-16.0) g/dL Hct (36-46) % MCV (80-100) fL MCH (26-34) PG MCHC (30-36) % RDW (11.6-14.8) % Plt Count (150-400) X10^3/uL Neut % (Auto) (50-75) % Lymph % (Auto) (25-40) % [place] % (Auto) (3-14) % Eos % (Auto) (2-4) % Baso % (Auto) (0-2) % Neut # (Auto) (9407-3508) /uL Lymph # (Auto) (4914-9887) /uL [place] # (Auto) (0-900) /uL Eos # (Auto) (0-450) /uL Baso # (Auto) (0-100) /uL ESR (0-20) MM/HR Sodium (137-145) mmol/L Potassium (3.4-5.1) mmol/L Chloride (98-107) mmol/L Carbon Dioxide (22-32) mmol/L BUN (7-17) mg/dL Creatinine (0.52-1.04) mg/dL Estimated GFR (>60) mL/min BUN/Creatinine Ratio (6-22) Glucose (80-110) mg/dL Lactate (0.7-2.1) mmol/L Calcium (8.4-10.2) mg/dL Magnesium (1.6-2.3) mg/dL Total Bilirubin (0.2-1.3) mg/dL AST (14-36) IU/L ALT (<35) IU/L Alkaline Phosphatase (38-126) U/L Total Creatine Kinase (30-135) U/L CK-MB (CK-2) CK-MB (CK-2) Rel Index Troponin I (0.01-0.034) ng/mL C-Reactive Protein (<1.0) mg/dL NT-Pro-B Natriuret Pep (<450) pg/mL Total Protein (6.3-8.2) g/dL Albumin (3.5-5.0) g/dL Globulin (1.7-4.1) g/dL Albumin/Globulin Ratio (1.0-2.8) SARS-CoV-2 (PCR) Negative (Negative) MDM Narrative Medical decision making narrative: Patient with reassuring history and physical exam as well as labs and imaging obtained. She is demonstrating no respiratory distress, use of accessory muscles, tachypnea or hypoxemia. Findings on lower extremities could include chronic venous stasis, CHF exacerbation, less likely bilateral cellulitis, less likely bilateral DVTs. Labs are reassuring, no signs of sepsis or extremities. Extensive return precautions discussed with patient and follow-up instructions related. Discharge Plan Departure Patient Disposition: Home Clinical Impression: Bilateral cellulitis of lower leg, Bilateral edema of lower extremity, Jeni infection Instructions: DI for Cellulitis -- Adult Activity Restrictions/Additional Instructions: *You have been diagnosed with [swelling in redness in your lower legs is likely due to increased fluid as well as early infection. Your labs and imaging is very reassuring and at this point there is no indication the hospitalization is necessary *What to do: *Please continue to take your regular medications as directed. Also please increase your Lasix daily for the next 3 days as we discussed. Finally, the rash under your breasts may be treated with over the counter anti fungal creams that you may leaf size picker when you get your prescription [x ] New medication prescriptions sent to your pharmacy: [[facility] ] [ ] New medication written as a paper prescription [ ] No new medications given *Please follow up with your primary care provider in 2-3 days, call for an appointment. Let them know you were seen in the Emergency Department and that we ask that you be seen in follow up. We will electronically transmit a record of today's note if your PCP is in our system *If you do not have a primary care provider please contact the [facility] Resource line at [phone]. They will ask some questions about your medical history and help get you set up with a doctor in the community. *Return to Emergency Department if you should have any new, worsening or concerning symptoms, such as [fever greater than 101 F, shaking chills, worsening pain, persistent vomiting or other bothersome symptoms] Prescriptions: New cephalexin 500 mg capsule 500 mg PO Q6H 7 Days Qty: 28 0RF No Action Sanguenol supplement 1 cap PO DAILY Qty: 90 0RF Colon Herbal Cleanser Capsule PO .qd 0RF nerve support supplement See Rx Instructions .ROUTE .COMPLEX 0RF Rx Instructions: 1 cap PO QD; chlorthalidone 25 mg tablet 25 mg PO DAILY Qty: 30 1RF Eliquis 5 mg tablet 5 mg PO BID Qty: 180 3RF lansoprazole 30 mg capsule,delayed release(DR/EC) 30 mg PO DAILY Qty: 90 3RF pramipexole 0.5 mg tablet See Rx Instructions .ROUTE .COMPLEX Qty: 180 1RF Dose Instruction: TAKE 1 TABLET BY MOUTH TWICE DAILY Rx Instructions: TAKE 1 TABLET BY MOUTH TWICE DAILY metoprolol succinate 50 mg tablet extended release 24 hr 50 mg PO DAILY Qty: 90 0RF amlodipine 10 mg tablet 10 mg PO DAILY Qty: 90 0RF losartan 100 mg tablet 100 mg PO DAILY Qty: 90 0RF potassium chloride 10 mEq capsule, extended release See Rx Instructions .ROUTE .COMPLEX Qty: 90 0RF Dose Instruction: TAKE 1 CAPSULE BY MOUTH DAILY Rx Instructions: TAKE 1 CAPSULE BY MOUTH DAILY furosemide 20 mg tablet See Rx Instructions .ROUTE .COMPLEX Qty: 180 0RF Dose Instruction: TAKE 2 TABLETS BY MOUTH EVERY MORNING Rx Instructions: TAKE 2 TABLETS BY MOUTH EVERY MORNING levothyroxine 112 mcg tablet 112 mcg PO QAM 0RF PreserVision AREDS 1 cap PO BID 0RF Referrals: Nicole Salinas DO [Primary Care Provider] -
[2021-11-20 10:09] VITALS: BP 160/75; PULSE 92; RESP 22; TEMP 36.7; O2SAT 96
[2021-11-20 10:36] LABS: Add Manual Diff / Slide Review NO; Basophils Absolute Auto 0 /uL (0-100); Basophils Percent Auto 0.5 % (0-2); Eosinophils Absolute Auto 500 /uL (0-450); Eosinophils Percent Auto 5.8 % (2-4); Hematocrit 36.3 % (36-46); Hemoglobin 12.1 g/dL (12.0-16.0); Lymphocytes Absolute Auto 1800 /uL (1100-4500); Lymphocytes Percent Auto 21.8 % (25-40); Mean Corpuscular HGB Conc 33.4 % (30-36); Mean Corpuscular Hemoglobin 28.4 PG (26-34); Monocytes Absolute Auto 500 /uL (0-900); Monocytes Percent Auto 6.4 % (3-14); Neutrophils Absolute Auto 5500 /uL (1500-7000); Neutrophils Percent Auto 65.5 % (50-75); Platelet Count 223 X10^3/uL (150-400); Red Blood Cell Count 4.27 X10^6/uL (4.0-5.2); Red Cell Distribution Width 14.8 % (11.6-14.8); White Blood Cell Count 8.4 X10^3/uL (4.5-11.0)
[2021-11-20 10:46] LABS: COVID19 -Nasal RAPID Negative (Negative)
[2021-11-20 10:54] LABS: Erythrocyte Sedimentation Rate 47 MM/HR (0-20)
[2021-11-20 10:57] LABS: Alanine Aminotransferase 24 IU/L (<35); Albumin 3.8 g/dL (3.5-5.0); Albumin Globulin Ratio 1.3 (1.0-2.8); Alkaline Phosphatase 84 U/L (38-126); Aspartate Aminotransferase 26 IU/L (14-36); BUN Creatinine Ratio 19.7 (6-22); Bilirubin Total 0.5 mg/dL (0.2-1.3); Blood Urea Nitrogen 14 mg/dL (7-17); C-Reactive Protein Quant 3.2 mg/dL (<1.0); Calcium 8.8 mg/dL (8.4-10.2); Carbon Dioxide 26 mmol/L (22-32); Chloride 111 mmol/L (98-107); Creatine Kinase 48 U/L (30-135); Estimated Glomerular Filt Rate > 60 mL/min (>60); Globulin 2.9 g/dL (1.7-4.1); Glucose 110 mg/dL (80-110); HEMOLYSIS < 15 (0-50); Magnesium 1.9 mg/dL (1.6-2.3); Potassium 3.5 mmol/L (3.4-5.1); Sodium 143 mmol/L (137-145); Total Protein 6.7 g/dL (6.3-8.2)
[2021-11-20 11:06] LABS: NT-proBNP (BNP-Adult 18+) 258 pg/mL (<450); Troponin I < 0.012 ng/mL (0.01-0.034)
[2021-11-20 12:23] VITALS: BP 190/63; PULSE 83; RESP 16; O2SAT 97
== END 2021-11-20 12:23 | disposition home or self-care (01) ==
PROVIDERS: Emergency Provider Emergency Medicine; PCP Family Medicine
DX: L03.116 Cellulitis of left lower limb (principal); R60.0 Localized edema; B37.9 Candidiasis, unspecified; R06.02 Shortness of breath; Z20.822 Contact with and (suspected) exposure to COVID-19
CPT/HCPCS: 36415; 74022; 80053; 82550; 83605; 83735; 83880; 84484; 85025; 85651; 86140; 87040; 87635; 93005; 93010; 99284; C9803